=== PATIENT | male | born 1945 | race Caucasian/White ===

== ENCOUNTER → 2016-03-06 | Outpatient (CLI) | payer BC ==
[~2016-03-06] MED LIST: AMLO-114 PO; ASPCH81X PO; ATOR10TA88 PO; TRAM-10 PO
--- NOTE | 2016-03-06 09:55 | DIAGNOSTIC IMAGING REPORT ---
CAROTID ARTERY ULTRASOUND CLINICAL HISTORY: Arteriosclerosis of carotid artery. COMPARISON STUDY: None. TECHNIQUE: Real-time, grayscale, and color Doppler sonography of the carotid and vertebral arteries was performed. Images were viewed in the transverse and longitudinal planes. FINDINGS: There is mild to moderate atherosclerotic plaque. Velocity measurements are listed below. COMMON CAROTID PEAK SYSTOLIC VELOCITY (CM/S): RIGHT 71 LEFT 78 ICA PEAK SYSTOLIC VELOCITY (CM/S): RIGHT 33 LEFT 59 The systolic ratios between the internal to common carotid arteries were normal. Antegrade flow is seen in the vertebral arteries. The external carotid arteries are patent. Blood pressure in the right arm measured 159/102. Blood pressure in the left arm measured 170/103. IMPRESSION: 1. No evidence of a hemodynamically significant stenosis. 2. Mild to moderate atherosclerotic plaque within the bilateral common carotid and internal carotid arteries. 3. Elevated blood pressure, as above. Electronically signed by: Eugene Hillman M.D. 03/06/2016 9:53 AM Dictated Date/Time: 03/06/2016 9:51 AM
== END | disposition home or self-care (01) ==
LOC: C.ULTRBC 09:11
PROVIDERS: ATTEND Family Medicine
DX: I65.23 Occlusion and stenosis of bilateral carotid arteries (principal); R03.0 Elevated blood-pressure reading, without diagnosis of hypertension

== ENCOUNTER → 2016-03-13 | Outpatient (CLI) | payer BC ==
[~2016-03-13] MED LIST changes: +OPTIRAY 320 IV PRN
--- NOTE | 2016-03-13 11:01 | DIAGNOSTIC IMAGING REPORT ---
CT angiography abdomen ANGIO ABDOMEN WITH CONTRAST CLINICAL HISTORY: Aneurysm TECHNIQUE: Transaxial acquisition with multi axial reformatted images COMPARISON STUDY: None FINDINGS: Significant atherosclerotic change and tortuosity of the abdominal aorta. 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 Maximum transaxial dimension is 1.2 cm. Superior mesenteric artery shows minimal atherosclerotic change. Minimal atherosclerotic change origin of the renal arteries bilaterally with no significant stenotic process. 3.4 cm cyst superior aspect right hepatic lobe. Mild fatty infiltration of the remainder the liver. Mild cortical scarring of the kidneys bilaterally. Pancreas is unremarkable throughout. Visualized bowel pattern is nonobstructive. Mild atherosclerotic change and ectasia of the proximal iliac arterial vasculature. IMPRESSION: 1. 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 2. Maximum diameter is 12 mm with a maximum linear dimension of 3.1 cm 3. No additional focus of aneurysmal distention. 4. Small upper right hepatic lobe cyst. Electronically signed by: Boy Jacobsen M.D. 03/13/2016 10:59 AM Dictated Date/Time: 03/13/2016 10:53 AM
== END | disposition home or self-care (01) ==
LOC: C.CTS 10:03
PROVIDERS: ATTEND Family Medicine
DX: I72.8 Aneurysm of other specified arteries (principal); K76.89 Other specified diseases of liver

== ENCOUNTER → 2016-06-29 | Day surgery (SDC) | payer BC ==
[2016-06-22 08:03] VITALS: Ht 172.7 cm; Wt 83.6 kg
[~2016-06-29] VITALS: Ht 172.7 cm; Wt 83.6 kg
[~2016-06-29] MED LIST changes: +ATOR10TA82 PO; -ATOR10TA88 PO; +LIDOCAINE HCL 2% 2 ML VIAL (20MG/ML) ONE; +MIDAZOLAM HCL 1 MG/ML 2ML VIAL ONE; +ONDANSETRON INJ 2 MG/ML 2 ML VIAL ONE; -OPTIRAY 320 IV PRN; +PROPOFOL IV EMULSION 10 MG/ML 20 ML VIAL IV ONE; +SODIUM CHLORIDE 0.9% 500ML 500 ML IV ONE
--- NOTE | 2016-06-29 13:52 | Endo History and Physical ---
History & Physical Date of Service: June 29, 2016. Chief Complaint: History of colon polyps Referring Physician: Robinson Collins History of Present Illness 71 yo CM who presents for colonoscopy secondary to history of colon polyps. Past Surgical History Hx Cardiac Surgery: No Hx Internal Defibrillator: No Hx Pacemaker: No Hx Abdominal Surgery: Yes (INGUINAL HERNIA) Hx of Implantable Prosthesis: No Hx Post-Op Nausea and Vomiting: No Hx Cancer Surgery: No Hx Thoracic Surgery: No Hx Orthopedic: No Hx Urinary Tract Surgery: No Family History None Social History Smoking Status: Never Smoker Hx Substance Use: No Hx Alcohol Use: No Allergies Coded Allergies: NO KNOWN DRUG ALLERGIES (Verified Allergy, Unknown, ., 06/22/16) Current Medications Reported Home Medications Medications Dose Route/Sig Max Daily Dose Days Date Category Aspirin Chewable (Aspirin) 81 Mg Chew 81 Mg PO QAM 06/22/16 Reported Norvasc (Amlodipine Besylate) 10 Mg Tab 10 Mg PO QAM 06/22/16 Reported Lipitor (Atorvastatin Calcium) 10 Mg Tab 10 Mg PO DAILY AT LUNCH 06/22/16 Reported Vital Signs Weight (Kilograms): 83.64 Height (Feet): 5 Height (Inches): 8 Physical Exam General Appearance: WD/WN, no apparent distress Respiratory/Chest: Auscultation: breath sounds normal Cardiovascular: Heart Auscultation: RRR Abdomen: Bowel Sounds: normal Inspection & Palpation: soft, non-distended, no tenderness, guarding & rebound Assessment and Plan Assessment: 71 yo CM who presents for colonoscopy secondary to history of colon polyps. Plan: Proceed with colonoscopy.
--- NOTE | 2016-06-29 15:51 | GI REPORT ---
Procedure Date: 06/29/2016 2:45 PM Procedure: Colonoscopy Indications: High risk colon cancer surveillance: Personal history of colonic polyps Medicines: Monitored Anesthesia Care Complications: No immediate complications. Estimated Blood Loss: Estimated blood loss: none. Procedure: Pre-Anesthesia Assessment: - Prior to the procedure, a History and Physical was performed, and patient medications and allergies were reviewed. The patient's tolerance of previous anesthesia was also reviewed. The risks and benefits of the procedure and the sedation options and risks were discussed with the patient. All questions were answered, and informed consent was obtained. Prior Anticoagulants: The patient has taken aspirin, last dose was 2 days prior to procedure. ASA Grade Assessment: II - A patient with mild systemic disease. After reviewing the risks and benefits, the patient was deemed in satisfactory condition to undergo the procedure. After I obtained informed consent, the scope was passed under direct vision. Throughout the procedure, the patient's blood pressure, pulse, and oxygen saturations were monitored continuously. The Scope was introduced through the anus and advanced to the cecum, identified by appendiceal orifice and ileocecal valve. The colonoscopy was performed without difficulty. The patient tolerated the procedure well. The quality of the bowel preparation was good. The ileocecal valve, appendiceal orifice, and rectum were photographed. Findings: A 8 mm polyp was found in the ascending colon. The polyp was sessile. The polyp was removed with a hot snare. Resection and retrieval were complete. To prevent bleeding after the polypectomy, two hemostatic clips were successfully placed (MR conditional). There was no bleeding at the end of the procedure. Multiple small-mouthed diverticula were found in the sigmoid colon. Non-bleeding internal hemorrhoids were found during retroflexion. The hemorrhoids were small. Impression: - One 8 mm polyp in the ascending colon, removed with a hot snare. Resected and retrieved. Clips (MR conditional) were placed. - Diverticulosis in the sigmoid colon. - Non-bleeding internal hemorrhoids. Recommendation: - Resume previous diet. - Continue present medications. - Repeat colonoscopy for surveillance based on pathology results. - Return to primary care physician as previously scheduled. Nito Chavira DO 06/29/2016 3:50:16 PM This report has been signed electronically. Note Initiated On: 06/29/2016 2:45 PM I attest to the content of the Intraoperative Record and orders documented therein, exceptions below
[2016-06-29 16:08] VITALS: BP 138/89; PULSE 77; O2SAT 96
--- NOTE | 2016-06-29 16:18 | Discharge Instructions ---
Endoscopy Patient Instructions Date / Procedure(s) Performed June 29, 2016. Colonoscopy Allergy Information Coded Allergies: NO KNOWN DRUG ALLERGIES (Verified Allergy, Unknown, ., 06/22/16) Discharge Date / Findings June 29, 2016. Colon polyp Diverticulosis Internal hemorrhoids Medication Instructions Stopped Medication(s): last dose ASA Sunday OK to resume all medications today as prescribed Reported Home Medications Medications Dose Route/Sig Max Daily Dose Days Date Category Aspirin Chewable (Aspirin) 81 Mg Chew 81 Mg PO QAM 06/22/16 Reported Norvasc (Amlodipine Besylate) 10 Mg Tab 10 Mg PO QAM 06/22/16 Reported Lipitor (Atorvastatin Calcium) 10 Mg Tab 10 Mg PO DAILY AT LUNCH 06/22/16 Reported Provider Instructions Activity Restrictions - No exercising or heavy lifting for 24 hours. - Do not drink alcohol the day of the procedure. - Do not drive a car or operate machinery until the day after the procedure. - Do not make any important decisions or sign important papers in 24 hours after the procedure. Following Day: - Return to full activity which may include returning to work/school. Diet Start your diet with liquids and light foods (jello, soup, juice, toast). Then eat your usual diet if not nauseated. Treatment For Common After Affects For mild abdominal pain, bloating, or excessive gas: - Rest - Eat lightly - Lie on right side Follow-Up Information Follow-up with Dr. Robinson Collins as scheduled Anesthesia Information What You Should Know You have had a procedure that required some medicine to reduce anxiety and discomfort. This treatment is called moderate sedation. After receiving the treatment, you may be sleepy, but you will be able to breathe on your own. The effects of the treatment may last for several hours. Follow these instructions along with Activity/Diet recommendations noted above: * Do NOT do anything where dizziness or clumsiness would be dangerous. * Rest quietly at home today, then you can be up and about tomorrow. * Have a responsible person stay with you the rest of today. * You may have had an I.V. today. If so, you may take the dressing off later today. Recommendations Call your doctor if: * Trouble breathing * Continuous vomiting for more than 24 hours * Temperature above 101 degrees * Severe abdominal pain or bloating * Pain not relieved by pain medicine ordered * There is increased drainage or redness from any incision * A large amount of rectal bleeding greater than 2-3 tablespoons. (If you had a polyp/s removed or have hemorrhoids, a small amount of blood - from the rectum is to be expected.) * You have any unanswered questions or concerns. IN THE EVENT OF A SERIOUS EMERGENCY, GO TO THE NEAREST EMERGENCY ROOM Your discharge instructions were prepared by provider Nito Chavira. Patient Instructions Signature Page Dinesh Amin Patient (or Guardian) Signature/Date: I have read and understand the instructions given to me by my caregivers. Caregiver/RN/Doctor Signature/Date: The above-named patient and/or guardian has received patient instructions on this date. + Original Patient Signature Page (only) stays with chart. Please make copy for patient.
--- NOTE | 2016-06-29 16:54 | Anesthesiology Progress Note ---
Anesthesia Post Op Note Date & Time June 29, 2016 at 16:54 Vital Signs Pain Intensity: 0 Vital Signs Past 12 Hours Date Time Temp Pulse Resp B/P Pulse Ox O2 Delivery O2 Flow Rate FiO2 06/29/16 16:08 77 16 138/89 96 Room Air 06/29/16 15:53 82 16 122/71 95 Room Air 06/29/16 15:38 85 16 116/69 96 Room Air 06/29/16 14:06 36.9 96 20 159/94 97 Room Air Notes Mental Status: alert / awake / arousable, participated in evaluation Pt Amnestic to Procedure: Yes Nausea / Vomiting: adequately controlled Pain: adequately controlled Airway Patency, RR, SpO2: stable & adequate BP & HR: stable & adequate Hydration State: stable & adequate Anesthetic Complications: no major complications apparent
== END | disposition home or self-care (01) ==
LOC: C.GI 13:00
PROVIDERS: ATTEND Internal Medicine
DX: Z12.11 Encounter for screening for malignant neoplasm of colon (principal); D12.2 Benign neoplasm of ascending colon; K57.30 Diverticulosis of large intestine without perforation or abscess without bleeding; K64.8 Other hemorrhoids; Z86.010 Personal history of colon polyps; Z79.82 Long term (current) use of aspirin; Z79.899 Other long term (current) drug therapy

== ENCOUNTER → 2016-08-19 | Outpatient (CLI) | payer OTHER ==
[~2016-08-19] MED LIST changes: -ATOR10TA82 PO; +ATOR10TA88 PO; -LIDOCAINE HCL 2% 2 ML VIAL (20MG/ML) ONE; -MIDAZOLAM HCL 1 MG/ML 2ML VIAL ONE; -ONDANSETRON INJ 2 MG/ML 2 ML VIAL ONE; -PROPOFOL IV EMULSION 10 MG/ML 20 ML VIAL IV ONE; -SODIUM CHLORIDE 0.9% 500ML 500 ML IV ONE
== END | disposition home or self-care (01) ==
LOC: C.LAB 21:45
DX: Z02.83 Encounter for blood-alcohol and blood-drug test (principal)

== ENCOUNTER → 2016-08-22 | Day surgery (SDC) | payer BC ==
[2016-08-16 07:52] VITALS: Ht 170.2 cm; Wt 81.8 kg
[2016-08-18 09:31] LABS: BASO % 0.4 %; BASO ABS # 0.02 K/uL (0-0.2); COMPLETE YES; EOS % 1.8 %; HEMATOCRIT 40.6 % (42-52); IG% 0.4 %; LYMPH % 34.5 %; LYMPH ABS # 1.97 K/uL (1.2-3.4); MEAN CELL VOLUME 97.1 fL (80-100); MEAN CORPUSCULAR HEMOGLOBIN 33.3 pg (25-34); MEAN CORPUSCULAR HGB CONC 34.2 g/dl (32-36); MEAN PLATELET VOLUME 8.4 fL (7.4-10.4); MONO % 7.4 %; NEUT % 55.5 %; PLATELET COUNT 300 K/uL (130-400); RED BLOOD COUNT 4.18 M/uL (4.7-6.1); WHITE BLOOD COUNT 5.71 K/uL (4.8-10.8)
[2016-08-18 10:05] LABS: BUN/CREATININE RATIO 18.4 (10-20); CALCIUM 9.2 mg/dl (8.5-10.1); CREATININE 1.1 mg/dl (0.60-1.40); POTASSIUM 3.6 mmol/L (3.5-5.1)
[~2016-08-22] VITALS: Ht 170.2 cm; Wt 81.8 kg
[~2016-08-22] MED LIST changes: +ATROPINE SULFATE 0.1 MG/ML 5ML SYR IV PRN; +BUPIVACAINE 0.5 % 5 MG/1 ML MPF 30ML VIAL ONE; +CEFAZOLIN 2000 MG/60 ML D5W IV SCH; +EpHEDrine SULFATE INJ 50 MG/ML AMP IV PRN; +FENTANYL CITRATE INJ 50 MCG/1 ML 2 ML VIAL IV PRN; +FENTANYL CITRATE INJ 50 MCG/1 ML 2 ML VIAL ONE; +FLUMAZENIL 0.1 MG/1 ML 10 ML VIAL IV PRN; +HYDROmorphone INJ 2 MG/ML SYR/VIAL IV PRN; +LABETALOL HCL IV 5 MG/ML 20ML IV PRN; +LACTATED RINGER'S 1000ML 1,000 ML IV SCH; +LACTATED RINGER'S 1000ML 500 ML IV SCH; +LIDOCAINE HCL 1% 20 ML VIAL ONE; +LIDOCAINE HCL 2% 2 ML VIAL (20MG/ML) ONE; +MEPERIDINE HCL 25 MG/ML CARP IV PRN; +MIDAZOLAM HCL 1 MG/ML 2ML VIAL ONE; +NALOXONE HCL 0.4 MG/1 ML VIAL/CARP IV PRN; +ONDANSETRON INJ 2 MG/ML 2 ML VIAL IV PRN; +PHENYLEPHRINE 100MCG/ML 5ML SYR IV PRN; +PROPOFOL IV EMULSION 10 MG/ML 20 ML VIAL IV ONE; +SODIUM CHLORIDE 0.9% 1000ML 1,000 ML IV SCH; +TRAMADOL HCL 50 MG TAB PO PRN
--- NOTE | 2016-08-22 06:46 | History & Physical Bridge - [place] ---
H&P Re-Evaluation Bridge Note: I have examined the patient, reviewed the History & Physical and in the interval since the performance of the History & Physical I have noted the following changes of clinical significance: No changes noted
--- NOTE | 2016-08-22 07:15 | [facility] Post Operative Brief Note ---
Immediate Operative Summary Operative Date Aug 22, 2016. Pre-Operative Diagnosis Right carpal tunnel syndrome Post-Operative Diagnosis Same as preop Procedure(s) Performed Right Carpal Tunnel Release Surgeon Dr. Hargrove Telecasting Engineer Surgeon(s) Toan Domínguez PA-C Estimated Blood Loss Minimal Findings ABOVE Specimens None Anesthesia LOCAL IV SEDATION Complication(s) None Disposition
[2016-08-22 07:16] VITALS: TEMP 36.8
--- NOTE | 2016-08-22 07:16 | Discharge Instructions-SurgCtr ---
Discharge Instructions Date of Service Aug 22, 2016. Visit Reason for Visit: Right Carpal Tunnel Syndrome Discharge Discharge Diagnosis / Problem: SAME ABOVE Discharge Goals Goal(s): Decrease discomfort, Improve function Activity Recommendations Activity Limitations: as noted below Lifting Limitations: until after follow-up appointment Anesthesia . Post Anesthesia Instructions: If you have had General Anesthesia or IV Sedation: * Do not drive today. * Resume driving when surgeon permits. * Do not make important decisions or sign legal documents today. * Call surgeon for: 1. Temperature elevations greater than 101 degrees F. 2. Uncontrollable pain. 3. Excessive bleeding. 4. Persistent nausea and vomiting. 5. Medication intolerance (nausea, vomiting or rash). * For nausea and vomiting use only clear liquids such as: tea, soda, bouillon until nausea subsides, then gradually increase diet as tolerated. * If you have any concerns or questions, call your surgeon's office. If physician is unavailable and it is an emergency, call 911 or go to the nearest emergency room. . Instructions / Follow-Up Instructions / Follow-Up MEDICATIONS: * Resume previous medications unless instructed otherwise by your surgeon. * Always take pain medication on a full stomach or with food to avoid upset stomach. * Do not drink alcohol or drive while taking narcotics. * Ibuprofen or Tylenol may be taken if narcotic not needed. SPECIAL CARE INSTRUCTIONS: __ None _X_ Keep extremity elevated and iced x 48 hours; apply ice 20-30 minutes 8-10 times/day. May remove at night. __ Sling __24 hrs/day __ Remove at night __ Shoulder Immobilizer __ 24 hrs/day __ Remove at night _X_ Dressing _X_ Maintain until seen in office, may shower with plastic over site __ Remove dressings in 24-48 hours and then may shower __ Cover incisions with band-aids after showering __ Do not remove steri-strips Call physician if chills or temperature rises above 102 degrees or pain unrelieved by prescribed pain medications at . . Diet Recommendations Home Diet: no limitations Fluid Restriction: None Procedures Procedures Performed: Right Carpal Tunnel Release Pending Studies Studies pending at discharge: no Work Instructions Return To Work: after follow-up Lifting Limitations: no more than 10 pounds Medical Emergencies . Who to Call and When: Medical Emergencies: If at any time you feel your situation is an emergency, please call 911 immediately. . Non-Emergent Contact Non-Emergency issues call your: Primary Care Provider Call Non-Emergent contact if: you have a fever, temperature is above 101.5 . . "Provider Documentation" section prepared by Toan Domínguez. .
--- NOTE | 2016-08-22 07:35 | Anesthesia Progress Nt - [facility] ---
Anesthesia Post Op Note Date & Time Aug 22, 2016 at 07:35 Vital Signs Pain Intensity: 0 Vital Signs Past 12 Hours Date Time Temp Pulse Resp B/P (MAP) Pulse Ox O2 Delivery O2 Flow Rate FiO2 08/22/16 07:16 36.8 76 16 154/96 (115) 96 Room Air 08/22/16 06:22 36.7 98 16 145/100 (115) 96 Room Air Notes Mental Status: alert / awake / arousable, participated in evaluation Pt Amnestic to Procedure: Yes Nausea / Vomiting: adequately controlled Pain: adequately controlled Airway Patency, RR, SpO2: stable & adequate BP & HR: stable & adequate Hydration State: stable & adequate Anesthetic Complications: no major complications apparent
[2016-08-22 07:42] VITALS: BP 154/99; PULSE 80; O2SAT 96
== END | disposition home or self-care (01) ==
LOC: X.SURG 06:09
PROVIDERS: ATTEND Orthopaedic Surgery
DX: G56.01 Carpal tunnel syndrome, right upper limb (principal); I10 Essential (primary) hypertension; Z79.82 Long term (current) use of aspirin; Z82.49 Family history of ischemic heart disease and other diseases of the circulatory system

== ENCOUNTER → 2017-06-08 | Outpatient (CLI) | payer BC ==
[~2017-06-08] MED LIST changes: +ATOR10TA82 PO; -ATOR10TA88 PO; -ATROPINE SULFATE 0.1 MG/ML 5ML SYR IV PRN; -BUPIVACAINE 0.5 % 5 MG/1 ML MPF 30ML VIAL ONE; -CEFAZOLIN 2000 MG/60 ML D5W IV SCH; -EpHEDrine SULFATE INJ 50 MG/ML AMP IV PRN; -FENTANYL CITRATE INJ 50 MCG/1 ML 2 ML VIAL IV PRN; -FENTANYL CITRATE INJ 50 MCG/1 ML 2 ML VIAL ONE; -FLUMAZENIL 0.1 MG/1 ML 10 ML VIAL IV PRN; -HYDROmorphone INJ 2 MG/ML SYR/VIAL IV PRN; -LABETALOL HCL IV 5 MG/ML 20ML IV PRN; -LACTATED RINGER'S 1000ML 1,000 ML IV SCH; -LACTATED RINGER'S 1000ML 500 ML IV SCH; -LIDOCAINE HCL 1% 20 ML VIAL ONE; -LIDOCAINE HCL 2% 2 ML VIAL (20MG/ML) ONE; -MEPERIDINE HCL 25 MG/ML CARP IV PRN; -MIDAZOLAM HCL 1 MG/ML 2ML VIAL ONE; -NALOXONE HCL 0.4 MG/1 ML VIAL/CARP IV PRN; -ONDANSETRON INJ 2 MG/ML 2 ML VIAL IV PRN; -PHENYLEPHRINE 100MCG/ML 5ML SYR IV PRN; -PROPOFOL IV EMULSION 10 MG/ML 20 ML VIAL IV ONE; -SODIUM CHLORIDE 0.9% 1000ML 1,000 ML IV SCH; -TRAM-10 PO; -TRAMADOL HCL 50 MG TAB PO PRN
[2017-06-08 14:59] LABS: ALBUMIN 4.5 gm/dl (3.4-5.0); ALT/SGPT 37 U/L (12-78); AST/SGOT 36 U/L (15-37); BLOOD UREA NITROGEN 12 mg/dl (7-18); CALCIUM 9.9 mg/dl (8.5-10.1); CARBON DIOXIDE 28 mmol/L (21-32); CHOLESTEROL 156 mg/dl (0-200); CREATININE 1.35 mg/dl (0.60-1.40); GLUCOSE 76 mg/dl (70-99); POTASSIUM 3.7 mmol/L (3.5-5.1); SODIUM 137 mmol/L (136-145)
[2017-06-08 15:04] LABS: ALKALINE PHOSPHATASE 64 U/L (45-117); TOTAL PROTEIN 8.8 gm/dl (6.4-8.2)
[2017-06-08 15:10] LABS: LDL CHOLESTEROL CALCULATED 63 mg/dl
== END | disposition home or self-care (01) ==
LOC: C.LABBC 10:19
PROVIDERS: ATTEND Nurse Practitioner Adult Health
DX: Z12.5 Encounter for screening for malignant neoplasm of prostate (principal); I10 Essential (primary) hypertension; E78.5 Hyperlipidemia, unspecified; F10.20 Alcohol dependence, uncomplicated

== ENCOUNTER 2021-05-26 21:37 | Inpatient (IN) ==
[2021-05-26] MEDS ORDERED: SODIUM CHLORIDE 0.9% 500 ML IV SCH (22:15)
[2021-05-26] MEDS ORDERED: MULTI-VITAMIN INFUSION 10 ML, THIAMINE HCL 100 MG, FOLIC ACID 1 MG in SODIUM CHLORIDE 0... IV ONE (22:23)
[2021-05-26 22:32] LABS: Basophils # (auto) 0.02 K/uL (0-0.2); Basophils % (auto) 0.2 %; Eosinophils # (auto) 0.01 K/uL (0-0.5); Eosinophils % (auto) 0.1 %; Hematocrit (blood only) 43.1 % (42-52); Hemoglobin 15.6 g/dL (14.0-18.0); Immature Granulocytes # (auto) 0.04 K/uL (0.00-0.02); Immature Granulocytes % (auto) 0.5 %; Lymphocytes # (auto) 1.04 K/uL (1.2-3.4); Lymphocytes % (auto) 12.7 %; Mean Corpuscular Hemoglobin 38.4 pg (25-34); Mean Corpuscular Hgb Conc 36.2 g/dL (32-36); Mean Corpuscular Volume 106.2 fL (80-100); Monocytes # (auto) 0.54 K/uL (0.11-0.59); Monocytes % (auto) 6.6 %; Neutrophils # (auto) 6.53 K/uL (1.4-6.5); Neutrophils % (auto) 79.9 %; Nucleated RBC # (auto) 0.18 K/uL (0-0); Nucleated RBC % (auto) 2.2 %; Platelet Count 263 K/uL (130-400); RDW Standard Deviation 54.5 fL (36.4-46.3); Red Blood Count 4.06 M/uL (4.7-6.1); White Blood Count 8.18 K/uL (4.8-10.8)
[2021-05-26] MEDS ORDERED: POTASSIUM CHLORIDE 20 MEQ/15 ML UDC PO STA (22:34)
[2021-05-26 22:45] LABS: Albumin Globulin Ratio 1.1 (0.9-2); Albumin Level 4.3 gm/dl (3.4-5.0); BUN Creatinine Ratio 16.3 (10-20); Bilirubin,Total 1.6 mg/dl (0.2-1.0); Calcium 11.3 mg/dl (8.5-10.1); Creatinine Clr Calc Pharmacy 34.2 ml/min; Est GFR (African American) 43.2 ml/min; Est GFR (Non-African American) 37.3 ml/min; Magnesium 2.1 mg/dl (1.7-2.4); Potassium 2.3 mmol/L (3.5-5.1); Total Protein 8.3 gm/dl (6.0-8.3)
[2021-05-26 22:46] LABS: iSTAT Creatinine 1.4 mg/dl (0.6-1.3); iSTAT Hemoglobin 15.3 g/dl (14.0-18.0); iSTAT Ionized Calcium 1.25 mmol/l (1.12-1.32); iSTAT Potassium 2.6 mmol/L (3.3-5.0)
[2021-05-26 22:51] LABS: Troponin I High Sensitivity 29.7 pg/ml (0-20)
[2021-05-26 23:14] LABS: RBC Morphology Unremarkable
--- NOTE | 2021-05-26 23:41 | Emergency Department Note ---
History of Present Illness General Chief complaint: Confusion Time Seen by Provider: 05/26/21 21:52 History of Present Illness This 76-year-old alcoholic presents to the ER complaining of possible confusion who was found outside and states has been drinking tequila today Location: Generalized Quality: Weak Severity: Moderate Duration: Ongoing Timing: Ongoing Context: Patient was brought in as he appeared confused outside Modifying factors: better with nothing; worse with nothing patient states he drinks daily. He does not want to go to rehab. Patient denies chest pain, dyspnea, abdominal pain, fever, chills, flulike illness. Patient states he is not sure why he is here. Home Medications Medication Instructions Recorded Confirmed Type aspirin 81 mg tablet,delayed 81 mg PO DAILY tab 11/19/18 05/26/21 History release amlodipine 10 mg tablet 10 mg PO DAILY #90 tab 12/07/20 05/26/21 Rx atorvastatin 10 mg tablet 10 mg PO DAILY #90 tab 12/07/20 05/26/21 Rx Allergies Allergy/AdvReac Type Severity Reaction Status Date / Time No Known Drug Allergies Allergy Unknown . Verified 05/26/21 22:46 Past Med/Surg History Medical History Alcoholism Anemia Arteriosclerosis of carotid artery Celiac artery aneurysm Diverticulosis Dyslipidemia Erectile dysfunction Hypertension Internal hemorrhoids Tubular adenoma of colon Surgical History H/O hernia repair abdominal hernia repair with mesh (2002); hospital in [facility] H/O tooth extraction Family History Mother Dementia age 100 Father Stroke age 88 Grandfather (Maternal) Heart disease Social History Smoking Status: Former smoker Tobacco Type: Cigarettes Second Hand Exposure: No; Hx Alcohol Use: No Hx Substance Use: No Preferred Language: Arabic Visual Impairment: No Limitations Hearing Ability: Normal 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 marital status: current occupational status: retired current occupation: does consulting work on the side Feels Safe at Home: Yes Childhood Exposure to Second-Hand Smoke: No caffeine: Yes Dental Care, Regularly: Yes Physical Activity Frequency: 5-6 Times per Week Seatbelt Use: always Sunscreen Use: Yes Review of Systems A total of 10 systems reviewed and were otherwise negative Physical Exam Vital Signs Vital Signs - 24 hr 05/26/21 21:47 05/26/21 22:02 05/26/21 22:20 Temperature 37 C Temperature Source Rectal Pulse Rate 98 H Pulse Rate [Finger] Pulse Rhythm [Finger] Pulse Strength [Finger] Respiratory Rate 18 Respiratory Effort / Characteristics Non-Labored Respiratory Depth Normal Blood Pressure 108/79 Blood Pressure [Right Arm] Blood Pressure Mean 88 Blood Pressure Mean [Right Arm] Blood Pressure Position Sitting Blood Pressure Position [Right Arm] Pulse Oximetry 99 97 Oxygen Delivery Method Room Air Room Air Room Air Sepsis Recent Fever Within 48 Hours No Sepsis New/Unexplained Change in Mental Status No Sepsis Action Taken by Nursing No Action Required 05/27/21 00:00 05/27/21 00:52 Temperature Temperature Source Pulse Rate Pulse Rate [Finger] 94 H 93 H Pulse Rhythm [Finger] Regular Regular Pulse Strength [Finger] Normal Normal Respiratory Rate 17 20 Respiratory Effort / Characteristics Non-Labored Non-Labored Respiratory Depth Normal Normal Blood Pressure Blood Pressure [Right Arm] 138/89 112/97 Blood Pressure Mean Blood Pressure Mean [Right Arm] 105 102 Blood Pressure Position Blood Pressure Position [Right Arm] Sitting Sitting Pulse Oximetry 94 99 Oxygen Delivery Method Room Air Room Air Sepsis Recent Fever Within 48 Hours Sepsis New/Unexplained Change in Mental Status Sepsis Action Taken by Nursing VITALS: Vitals are noted on the nurse's note and reviewed by myself. Vital signs stable. GENERAL: Pleasant elderly male mildly confused appearing following commands but slow to answer, in no acute distress, nondiaphoretic, well-developed well-nourished. SKIN: Dried blood on the lips, the rest of the skin was without rashes, erythema, edema, or bruising. There is no tenting of the skin. Capillary reflex less than 2 seconds. HEAD: Normocephalic atraumatic. EARS: External auditory canals clear, EYES: Pupils equal round and reactive to light and accommodation. Conjunctivae without injection, sclerae without icterus. Extraocular movements intact. NOSE: Patent, turbinates without inflammation or discharge. MOUTH: Mucous membranes moist. Pharynx without erythema or exudate. Uvula midline. Airway patent. Tongue does not deviate. NECK: Supple without nuchal rigidity. No lymphadenopathy. No thyromegaly. Cervical spine is nontender. No JVD. HEART: Regular rate and rhythm LUNGS: Clear to auscultation bilaterally without wheezes, rales or rhonchi. No retractions or accessory muscle use. ABDOMEN: Positive bowel sounds x 4. Normal tympanic percussion. Soft, nontender, without masses or organomegaly. Cordero sign negative. No guarding or rebound tenderness. No CVA tenderness MUSCULOSKELETAL: No muscle atrophy, erythema, or edema noted. NEURO: Patient was alert and oriented to person place and time. Normal sensati on to light and sharp touch. No focal neurological deficits. Course Administered Medications Potassium Chloride/Sodium Chloride (Normal Saline W/20 Meq Kcl) 20 meq in 1,000 mls @ 100 mls/hr IV .Q10H ARTURO Stop: 06/26/21 04:59 Last Admin: 05/27/21 05:14 Dose: 100 mls/hr Documented by: [id number] Discontinued Medications Sodium Chloride (Nss) 500 mls @ 999 mls/hr IV .Q31M ARTURO Stop: 05/26/21 22:45 Last Infusion: 05/26/21 23:52 Dose: 0 mls/hr Documented by: [id number] Admin: 05/26/21 22:23 Dose: 999 mls/hr Documented by: [id number] Multivitamins 10 ml/ Thiamine HCl 100 mg/ Folic Acid 1 mg/Sodium Chloride 1,011.2 mls @ 1,011.2 mls/hr IV .Q1H ONE Stop: 05/26/21 23:22 Last Infusion: 05/27/21 00:59 Dose: 0 mls/hr Documented by: [id number] Admin: 05/26/21 23:52 Dose: 1,011.2 mls/hr Documented by: [id number] Potassium Chloride (K Jimmy / Wtr) 10 meq in 100 mls @ 100 mls/hr IV Q1H ARTURO; Protocol Stop: 05/27/21 00:44 Last Infusion: 05/27/21 02:07 Dose: 0 mls/hr Documented by: [id number] Admin: 05/27/21 00:51 Dose: 100 mls/hr Documented by: [id number] Infusion: 05/27/21 00:50 Dose: 0 mls/hr Documented by: [id number] Admin: 04/14/22 23:57 Dose: 100 mls/hr Documented by: [id number] Magnesium Sulfate/Dextrose (Magnesium Sulfate / D5w) 1 gm in 100 mls @ 100 mls/hr IV Q1H ARTURO Stop: 05/27/21 00:34 Last Infusion: 05/27/21 03:09 Dose: 0 mls/hr Documented by: [id number] Admin: 05/27/21 02:05 Dose: 100 mls/hr Documented by: [id number] Infusion: 05/27/21 02:05 Dose: 0 mls/hr Documented by: [id number] Admin: 05/27/21 00:57 Dose: 100 mls/hr Documented by: [id number] Ioversol (Optiray 320 125ml) 125 ml IV ONCE ONE Stop: 05/26/21 23:47 Last Admin: 05/26/21 23:46 Dose: 118 ml Documented by: [id number] Potassium Chloride (Potassium Chloride 20 Meq/15 Ml Udc) 40 meq PO NOW STA Stop: 05/26/21 22:35 Last Admin: 05/26/21 23:55 Dose: 40 meq Documented by: [id number] Medical Decision Making Medical Records Attestation: I reviewed the patient's medical records. Home Medications Current Medication List: was personally reviewed by me Laboratory Data Attestation: I reviewed the patient's lab results. Result diagrams: 05/26/21 21:53 05/26/21 21:53 Lab Results 05/26/21 05/26/21 05/26/21 Range/Units 21:53 21:53 21:53 WBC 8.18 (4.8-10.8) K/uL RBC 4.06 L (4.7-6.1) M/uL Hgb 15.6 (14.0-18.0) g/dL POC Hgb (14.0-18.0) g/dl Hct 43.1 (42-52) % POC Hct (42-52) % MCV 106.2 H (80-100) fL MCH 38.4 H (25-34) pg MCHC 36.2 H (32-36) g/dL RDW Std Deviation 54.5 H (36.4-46.3) fL RDW Coeff of Juan 14.0 (11.5-14.5) % Plt Count 263 (130-400) K/uL MPV 10.0 (7.4-10.4) fL Immature Gran % (Auto) 0.5 % Neut % (Auto) 79.9 % Lymph % (Auto) 12.7 % Harrison % (Auto) 6.6 % Eos % (Auto) 0.1 % Baso % (Auto) 0.2 % Neut # (Auto) 6.53 H (1.4-6.5) K/uL Lymph # (Auto) 1.04 L (1.2-3.4) K/uL Harrison # (Auto) 0.54 (0.11-0.59) K/uL Eos # (Auto) 0.01 (0-0.5) K/uL Baso # (Auto) 0.02 (0-0.2) K/uL Immature Gran # (Auto) 0.04 H (0.00-0.02) K/uL Absolute Nucleated RBC 0.18 H (0-0) K/uL Nucleated RBC % (auto) 2.2 % RBC Morphology Unremarkable PT (9.0-12.0) Seconds INR (0.9-1.1) APTT (21.0-31.0) Seconds PTT Ratio POC pH (7.35-7.45) POC pCO2 (35-46) mmHg POC pO2 (80-95) mmHg POC HCO3 (19-24) misty/L POC Base Excess (-9-1.8) misty/L POC ABG O2 Sat (90-95) % POC Sodium (135-144) mmol/L Sodium 137 (136-145) mmol/L POC Potassium (3.3-5.0) mmol/L Potassium 2.3 L* (3.5-5.1) mmol/L POC Chloride (101-112) mmol/L Chloride 92 L (98-107) mmol/L Carbon Dioxide 22 (21-32) mmol/L POC Total CO2 (24-31) mmol/L Anion Gap 23 H (3-11) POC Anion Gap (16-25) mmol/L POC BUN (7-18) mg/dl BUN 28 H (6-23) mg/dl Creatinine 1.72 H (0.6-1.4) mg/dl POC Creatinine (0.6-1.3) mg/dl Est Cr Clr Drug Dosing 34.2 ml/min Est GFR ( Amer) 43.2 ml/min Est GFR (Non-Af Amer) 37.3 ml/min BUN/Creatinine Ratio 16.3 (10-20) Glucose 191 H (70-99(Fasting)) mg/dl POC Glucose (other) (70-99) mg/dl Osmolality (280-300) mOsm/kg Calcium 11.3 H (8.5-10.1) mg/dl POC Ioniz Calcium Naida (1.12-1.32) mmol/l Magnesium 2.1 (1.7-2.4) mg/dl Total Bilirubin 1.6 H (0.2-1.0) mg/dl AST 59 H (13-39) U/L ALT 53 H (7-52) U/L Alkaline Phosphatase 74 (34-104) U/L Ammonia (18-72) umol/L Total Creatine Kinase 44 (30-223) U/L Troponin I High Sens 29.7 H (0-20) pg/ml Total Protein 8.3 (6.0-8.3) gm/dl Albumin 4.3 (3.4-5.0) gm/dl Globulin 4.0 (2.5-4.0) gm/dl Albumin/Globulin Ratio 1.1 (0.9-2) Salicylates (3.0-30) mg/dl Acetaminophen (10-30) ug/ml Ethyl Alcohol mg/dL < 10.0 (<10.0) mg/dl SARS-CoV-2, RNA, NAAT (NEGATIVE) 05/26/21 05/26/21 05/26/21 Range/Units 21:53 21:53 22:32 WBC (4.8-10.8) K/uL RBC (4.7-6.1) M/uL Hgb (14.0-18.0) g/dL POC Hgb 15.3 (14.0-18.0) g/dl Hct (42-52) % POC Hct 45 (42-52) % MCV (80-100) fL MCH (25-34) pg MCHC (32-36) g/dL RDW Std Deviation (36.4-46.3) fL RDW Coeff of Juan (11.5-14.5) % Plt Count (130-400) K/uL MPV (7.4-10.4) fL Immature Gran % (Auto) % Neut % (Auto) % Lymph % (Auto) % Harrison % (Auto) % Eos % (Auto) % Baso % (Auto) % Neut # (Auto) (1.4-6.5) K/uL Lymph # (Auto) (1.2-3.4) K/uL Harrison # (Auto) (0.11-0.59) K/uL Eos # (Auto) (0-0.5) K/uL Baso # (Auto) (0-0.2) K/uL Immature Gran # (Auto) (0.00-0.02) K/uL Absolute Nucleated RBC (0-0) K/uL Nucleated RBC % (auto) % RBC Morphology PT 12.6 H (9.0-12.0) Seconds INR 1.2 H (0.9-1.1) APTT 23.0 (21.0-31.0) Seconds PTT Ratio 0.8 POC pH (7.35-7.45) POC pCO2 (35-46) mmHg POC pO2 (80-95) mmHg POC HCO3 (19-24) misty/L POC Base Excess (-9-1.8) misty/L POC ABG O2 Sat (90-95) % POC Sodium 139 (135-144) mmol/L Sodium (136-145) mmol/L POC Potassium 2.6 L (3.3-5.0) mmol/L Potassium (3.5-5.1) mmol/L POC Chloride 98 L (101-112) mmol/L Chloride (98-107) mmol/L Carbon Dioxide (21-32) mmol/L POC Total CO2 25 (24-31) mmol/L Anion Gap (3-11) POC Anion Gap 20.0 (16-25) mmol/L POC BUN 33 H (7-18) mg/dl BUN (6-23) mg/dl Creatinine (0.6-1.4) mg/dl POC Creatinine 1.4 H (0.6-1.3) mg/dl Est Cr Clr Drug Dosing ml/min Est GFR ( Amer) ml/min Est GFR (Non-Af Amer) ml/min BUN/Creatinine Ratio (10-20) Glucose (70-99(Fasting)) mg/dl POC Glucose (other) 174 H (70-99) mg/dl Osmolality 309 H (280-300) mOsm/kg Calcium (8.5-10.1) mg/dl POC Ioniz Calcium Naida 1.25 (1.12-1.32) mmol/l Magnesium (1.7-2.4) mg/dl Total Bilirubin (0.2-1.0) mg/dl AST (13-39) U/L ALT (7-52) U/L Alkaline Phosphatase (34-104) U/L Ammonia (18-72) umol/L Total Creatine Kinase (30-223) U/L Troponin I High Sens (0-20) pg/ml Total Protein (6.0-8.3) gm/dl Albumin (3.4-5.0) gm/dl Globulin (2.5-4.0) gm/dl Albumin/Globulin Ratio (0.9-2) Salicylates (3.0-30) mg/dl Acetaminophen (10-30) ug/ml Ethyl Alcohol mg/dL (<10.0) mg/dl SARS-CoV-2, RNA, NAAT (NEGATIVE) 05/26/21 05/26/21 05/26/21 Range/Units 23:05 23:13 23:49 WBC (4.8-10.8) K/uL RBC (4.7-6.1) M/uL Hgb (14.0-18.0) g/dL POC Hgb (14.0-18.0) g/dl Hct (42-52) % POC Hct (42-52) % MCV (80-100) fL MCH (25-34) pg MCHC (32-36) g/dL RDW Std Deviation (36.4-46.3) fL RDW Coeff of Juan (11.5-14.5) % Plt Count (130-400) K/uL MPV (7.4-10.4) fL Immature Gran % (Auto) % Neut % (Auto) % Lymph % (Auto) % Harrison % (Auto) % Eos % (Auto) % Baso % (Auto) % Neut # (Auto) (1.4-6.5) K/uL Lymph # (Auto) (1.2-3.4) K/uL Harrison # (Auto) (0.11-0.59) K/uL Eos # (Auto) (0-0.5) K/uL Baso # (Auto) (0-0.2) K/uL Immature Gran # (Auto) (0.00-0.02) K/uL Absolute Nucleated RBC (0-0) K/uL Nucleated RBC % (auto) % RBC Morphology PT (9.0-12.0) Seconds INR (0.9-1.1) APTT (21.0-31.0) Seconds PTT Ratio POC pH 7.49 H (7.35-7.45) POC pCO2 32 L (35-46) mmHg POC pO2 75 L (80-95) mmHg POC HCO3 24 (19-24) misty/L POC Base Excess 1.0 (-9-1.8) misty/L POC ABG O2 Sat 96.0 H (90-95) % POC Sodium (135-144) mmol/L Sodium (136-145) mmol/L POC Potassium (3.3-5.0) mmol/L Potassium (3.5-5.1) mmol/L POC Chloride (101-112) mmol/L Chloride (98-107) mmol/L Carbon Dioxide (21-32) mmol/L POC Total CO2 25 (24-31) mmol/L Anion Gap (3-11) POC Anion Gap (16-25) mmol/L POC BUN (7-18) mg/dl BUN (6-23) mg/dl Creatinine (0.6-1.4) mg/dl POC Creatinine (0.6-1.3) mg/dl Est Cr Clr Drug Dosing ml/min Est GFR ( Amer) ml/min Est GFR (Non-Af Amer) ml/min BUN/Creatinine Ratio (10-20) Glucose (70-99(Fasting)) mg/dl POC Glucose (other) (70-99) mg/dl Osmolality (280-300) mOsm/kg Calcium (8.5-10.1) mg/dl POC Ioniz Calcium Naida (1.12-1.32) mmol/l Magnesium (1.7-2.4) mg/dl Total Bilirubin (0.2-1.0) mg/dl AST (13-39) U/L ALT (7-52) U/L Alkaline Phosphatase (34-104) U/L Ammonia 18.0 (18-72) umol/L Total Creatine Kinase (30-223) U/L Troponin I High Sens (0-20) pg/ml Total Protein (6.0-8.3) gm/dl Albumin (3.4-5.0) gm/dl Globulin (2.5-4.0) gm/dl Albumin/Globulin Ratio (0.9-2) Salicylates < 3.0 L (3.0-30) mg/dl Acetaminophen < 3 L (10-30) ug/ml Ethyl Alcohol mg/dL (<10.0) mg/dl SARS-CoV-2, RNA, NAAT (NEGATIVE) 05/26/21 05/27/21 Range/Units 23:49 00:02 WBC (4.8-10.8) K/uL RBC (4.7-6.1) M/uL Hgb (14.0-18.0) g/dL POC Hgb (14.0-18.0) g/dl Hct (42-52) % POC Hct (42-52) % MCV (80-100) fL MCH (25-34) pg MCHC (32-36) g/dL RDW Std Deviation (36.4-46.3) fL RDW Coeff of Juan (11.5-14.5) % Plt Count (130-400) K/uL MPV (7.4-10.4) fL Immature Gran % (Auto) % Neut % (Auto) % Lymph % (Auto) % Harrison % (Auto) % Eos % (Auto) % Baso % (Auto) % Neut # (Auto) (1.4-6.5) K/uL Lymph # (Auto) (1.2-3.4) K/uL Harrison # (Auto) (0.11-0.59) K/uL Eos # (Auto) (0-0.5) K/uL Baso # (Auto) (0-0.2) K/uL Immature Gran # (Auto) (0.00-0.02) K/uL Absolute Nucleated RBC (0-0) K/uL Nucleated RBC % (auto) % RBC Morphology PT (9.0-12.0) Seconds INR (0.9-1.1) APTT (21.0-31.0) Seconds PTT Ratio POC pH (7.35-7.45) POC pCO2 (35-46) mmHg POC pO2 (80-95) mmHg POC HCO3 (19-24) misty/L POC Base Excess (-9-1.8) misty/L POC ABG O2 Sat (90-95) % POC Sodium (135-144) mmol/L Sodium (136-145) mmol/L POC Potassium (3.3-5.0) mmol/L Potassium (3.5-5.1) mmol/L POC Chloride (101-112) mmol/L Chloride (98-107) mmol/L Carbon Dioxide (21-32) mmol/L POC Total CO2 (24-31) mmol/L Anion Gap (3-11) POC Anion Gap (16-25) mmol/L POC BUN (7-18) mg/dl BUN (6-23) mg/dl Creatinine (0.6-1.4) mg/dl POC Creatinine (0.6-1.3) mg/dl Est Cr Clr Drug Dosing ml/min Est GFR ( Amer) ml/min Est GFR (Non-Af Amer) ml/min BUN/Creatinine Ratio (10-20) Glucose (70-99(Fasting)) mg/dl POC Glucose (other) (70-99) mg/dl Osmolality (280-300) mOsm/kg Calcium (8.5-10.1) mg/dl POC Ioniz Calcium Naida (1.12-1.32) mmol/l Magnesium (1.7-2.4) mg/dl Total Bilirubin (0.2-1.0) mg/dl AST (13-39) U/L ALT (7-52) U/L Alkaline Phosphatase (34-104) U/L Ammonia (18-72) umol/L Total Creatine Kinase (30-223) U/L Troponin I High Sens 25.3 H (0-20) pg/ml Total Protein (6.0-8.3) gm/dl Albumin (3.4-5.0) gm/dl Globulin (2.5-4.0) gm/dl Albumin/Globulin Ratio (0.9-2) Salicylates (3.0-30) mg/dl Acetaminophen (10-30) ug/ml Ethyl Alcohol mg/dL (<10.0) mg/dl SARS-CoV-2, RNA, NAAT NEGATIVE (NEGATIVE) Imaging Data Attestation: I personally reviewed and interpreted this imaging study as follo ws: MDM Narrative Prior records/ancillary studies reviewed and summarized above. Nursing notes reviewed. Additional history obtained from nursing. The patient's history was concerning for altered mental status. Differential diagnosis: Etiologies such as metabolic, infection, hypoglycemia, electrolyte abnormalities, cardiac sources, intracerebral event, toxicologic, neurologic, as well as others were entertained. Physical examination: As above. ER treatment provided: IV Lock Normal saline hydration Banana bag, potassium, magnesium An order was placed for continuous cardiac monitoring. The monitor shows a rate of 60-1 50 with a sinus rhythm. On reassessment the patients mental status improved. Diagnostics interpretation by me: ECG: Ordered for weakness Normal sinus, occasional PVC, U waves in the anterior septal leads, T wave inversions and ST depressions diffusely present, rate of 96. Impression normal sinus rhythm with U waves present and T wave inversions and mild ST depressions throughout acutely changed from prior EKG interpreted by myself I think arrhythmia is unlikely. EKG shows no interval abnormalities such as WPW. There are no findings to suggest Brugada syndrome. Cardiac monitoring in the emergency department reveals no tachycardic or bradycardic dysrhythmia. Hypertrophic cardiomyopathy was considered but there are no clear historical elements pointing toward this. EKG is not suggestive. The QRS voltage is not extremely large and there are no suggestive Q waves. The labs revealed no worrisome leukocytosis, severe hypokalemia and oral and IV potassium was ordered. Magnesium was ordered. Banana bag was ordered Negative alcohol Imaging studies: CT C SPINE: Osteopenia and spondylosis. No acute osseous findings. Radiologist: Jerry Roberts M.D. Study ready at 00:07 and initial results transmitted at 00:14 Preliminary Findings Only See Final Report For Complete Findings CT ABDOMEN & PELVIS With Contrast: Elevated right hemidiaphragm with right basilar atelectasis. Hepatic steatosis. Hepatic cysts, largest in the left hepatic lobe measuring up to 4.8 cm. Gallbladder, spleen, pancreas, adrenal glands are unremarkable. No hydronephrosis. Small right kidney cyst. No aortic aneurysm. 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 Normal appendix. No bowel obstruction or inflammation. Diverticulosis without diverticulitis. Left inguinal hernia containing a short loop of sigmoid colon without evidence of incarceration. Normal urinary bladder. Mild prostatomegaly. Lumbar spondylosis. No acute osseous findings. Radiologist: Jerry Roberts M.D. CTA CHEST: No evidence of acute pulmonary embolism. No thoracic aortic aneurysm or dissection. Coronary artery atherosclerosis. No pericardial effusion. Right hemidiaphragm elevation. Right basilar atelectasis. No consolidation, effusion, or pneumothorax. No acute osseous findings. Degenerative changes Radiologist: Jerry Roberts M.D. Preliminary Findings Only See Final Report For Complete Findings CT HEAD: No ICH, mass-effect, or edema. Involutional and chronic small vessel ischemic changes. No skull fracture. Sinuses and mastoid air cells are clear. Radiologist: Jerry Roberts M.D. Given the above diagnostic work-up and treatment, this episode appears to be consistent with altered mental status most likely from alcohol withdrawal. Imaging was negative. Potassium and magnesium replaced as above. Patient was written for banana bag and IV fluids. Further treatment will be required. Consultation: A consultation was placed with the hospitalist. The case was discussed and diagnostics were reviewed. The patient was evaluated in the ER for further treatment. The chart was completed utilizing [employer] Speech voice recognition software. Grammatical errors, random word insertions, pronoun errors, and incomplete sentences are an occassional consequence of this system due to software limitations, ambient noise, and hardware issues. Any formal questions or concerns about the content, text, or information contained within the body of this dictation should be directly addressed to the physician assistant executive housekeeper for clarification. Impression & Plan Altered mental status, Hypokalemia, Elevated troponin, Abnormal ECG Discharge Plan Visit Data Chief Complaint: Confusion ED Provider: Jori Ellington ED Midlevel Provider: Hamida Renee Discharge Problem: Altered mental status, Hypokalemia, Elevated troponin, Abnormal ECG Patient Disposition: Admitted As Inpatient Condition: Fair Discharge Instructions Interventions: ED Discharge Assessment Last Done: 05/27/21 03:26 Discharge Problem: Altered mental status Qualifiers: Altered mental status type: unspecified Qualified Code(s): R41.82 - Altered mental status, unspecified
[2021-05-26] MEDS ORDERED: OPTIRAY 320 125ml IV ONE (23:46)
[2021-05-26 23:56] LABS: iSTAT Arterial Blood Gas HCO3 24 meg/L (19-24); iSTAT Arterial Blood Gas pCO2 32 mmHg (35-46); iSTAT Arterial Blood Gas pH 7.49 (7.35-7.45); iSTAT Arterial Blood Gas pO2 75 mmHg (80-95); iSTAT Carbon Dioxide 25 mmol/L (24-31)
[2021-05-26] MEDS: POTASSIUM CHLORIDE / WTR 10 MEQ/100 ML PLCT IV SCH (23:57)
--- NOTE | 2021-05-27 00:07 | Emergency Department Note ---
ED Visit Note Patient was seen and evaluated at the bedside w/ Nhung Renee PA-C. Please see their note for history, physical, details, and disposition. Patient with a known history of alcoholism with significant hypokalemia. Imaging grossly negative and the patient was admitted to the medicine service. . : Altered mental status Qualifiers: Altered mental status type: unspecified Qualified Code(s): R41.82 - Altered mental status, unspecified
[2021-05-27 00:33] LABS: INR 1.2 (0.9-1.1); Partial Thromboplastin Ratio 0.8; Prothrombin Time 12.6 Seconds (9.0-12.0)
[2021-05-27 00:35] LABS: Acetaminophen < 3 ug/ml (10-30); Salicylate < 3.0 mg/dl (3.0-30)
[2021-05-27] MEDS: POTASSIUM CHLORIDE / WTR 10 MEQ/100 ML PLCT IV SCH (00:51)
[2021-05-27] MEDS: MAGNESIUM SULFATE / D5W 1 GM/100 ML BAG IV SCH ×2 (00:57→02:05)
--- NOTE | 2021-05-27 01:15 | History & Physical Report ---
Date of Service May 27, 2021 Assessment & Plan (1) Altered mental status: Plan: Confusion and disorientation- Likely secondary to alcoholism, and dehydration associated with acute kidney injury and hypokalemia CT head and cervical spine negative (2) Hypokalemia: Plan: Potassium 2.3 upon admission Received oral and IV supplementation while in ED, will continue with potassium via IV fluids (3) Elevated troponin: Plan: The patient will be admitted to telemetry for serial cardiac enzymes, serial EKG's, cardiac rhythm monitoring and a 2-D echocardiogram with Dopplers. Troponin has already been decreasing in the emergency department from initial value of 29.7 down to 25.3 (4) Acute kidney injury: Plan: Creatinine 1.72 upon admission, with baseline 1.03 Replace with IV fluids, and recheck laboratories in a.m. (5) Hypertension: Plan: Reduce amlodipine from 10 to 5 mg daily (6) Alcoholism: Plan: Placed on AWSS protocol Patient did receive 1 banana bag while in the ED Thiamine 100 mg p.o. every morning, folic acid 1 mg p.o. every morning, and Nephrocaps 1 p.o. every morning Cessation counseling (7) Dyslipidemia: Plan: Continue atorvastatin 10 mg daily and aspirin 81 mg milligrams daily History of Present Illness Chief Complaint: The patient was brought to the emergency department due to confusion, being found outside, and was drinking tequila Primary Care Provider: Chong Reyes DO The patient is a 76-year-old male with a past medical history including alcohol abuse, hypertension, erectile dysfunction, dyslipidemia, celiac artery aneurysm, carotid artery disease, anemia and alcoholism. He reports that he had been off of alcohol for about 5 months, and this week began drinking tequila half a bottle daily again. He was found outside, and was brought to the ED for assessment. His HPI and review of systems are somewhat limited due to to the patient's medical state Allergies Allergy/AdvReac Type Severity Reaction Status Date / Time No Known Drug Allergies Allergy Unknown . Verified 05/26/21 22:46 Home Medications Medication Instructions Recorded Confirmed Type aspirin 81 mg tablet,delayed 81 mg PO DAILY tab 11/19/18 05/26/21 History release amlodipine 10 mg tablet 10 mg PO DAILY #90 tab 12/07/20 05/26/21 Rx atorvastatin 10 mg tablet 10 mg PO DAILY #90 tab 12/07/20 05/26/21 Rx Past Med/Surg History Medical History Alcoholism Anemia Arteriosclerosis of carotid artery Celiac artery aneurysm Diverticulosis Dyslipidemia Erectile dysfunction Hypertension Internal hemorrhoids Tubular adenoma of colon Surgical History H/O hernia repair abdominal hernia repair with mesh (2002); hospital in [facility] H/O tooth extraction Family History Mother Dementia age 100 Father Stroke age 88 Grandfather (Maternal) Heart disease Social History Smoking Status: Former smoker Tobacco Type: Cigarettes Second Hand Exposure: No; Hx Alcohol Use: No Hx Substance Use: No Preferred Language: Korean Visual Impairment: No Limitations Hearing Ability: Normal 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 HEENT--PERRL, EOMI, mucous membranes and oropharynx dry. Neck--supple. No JVD. No bruits. Thyroid normal, trachea midline, no adenopathy. Heart--normal S1 and S2. No murmurs, rubs or gallops. Lungs--few coarse breath sounds bilaterally. No respiratory distress, no accessory muscle use. Abdomen--normal bowel sounds and soft. Nontender. Nondistended, no hernias or masses, no organomegaly. Extremities--no cyanosis or clubbing. No edema. Dermatologic--normal skin turgor, normal color, no abnormal lymph nodes, no rash. Neurologic--cranial nerves II through XII grossly intact. Rheumatologic--normal range of motion. Psychiatric--normal affect. Results & Data Results & Data ([facility]) Vital Signs (Past 12 Hours) Vital Signs Temp Pulse Pulse Resp BP BP Pulse Ox 05/27/21 00:52 93 H 20 112/97 99 05/27/21 00:00 94 H 17 138/89 94 05/26/21 22:20 97 05/26/21 21:47 37 C 98 H 18 108/79 99 Laboratory Results Laboratory Results WBC 8.18 K/uL (4.8-10.8) 05/26/21 21:53 RBC 4.06 M/uL (4.7-6.1) L 05/26/21 21:53 Hgb 15.6 g/dL (14.0-18.0) 05/26/21 21:53 POC Hgb 15.3 g/dl (14.0-18.0) 05/26/21 22:32 Hct 43.1 % (42-52) 05/26/21 21:53 POC Hct 45 % (42-52) 05/26/21 22:32 MCV 106.2 fL (80-100) H 05/26/21 21:53 MCH 38.4 pg (25-34) H 05/26/21 21:53 MCHC 36.2 g/dL (32-36) H 05/26/21 21:53 RDW Std Deviation 54.5 fL (36.4-46.3) H 05/26/21 21:53 RDW Coeff of Juan 14.0 % (11.5-14.5) 05/26/21 21:53 Plt Count 263 K/uL (130-400) 05/26/21 21:53 MPV 10.0 fL (7.4-10.4) 05/26/21 21:53 Immature Gran % (Auto) 0.5 % 05/26/21 21:53 Neut % (Auto) 79.9 % 05/26/21 21:53 Lymph % (Auto) 12.7 % 05/26/21 21:53 Dewey % (Auto) 6.6 % 05/26/21 21:53 Eos % (Auto) 0.1 % 05/26/21 21:53 Baso % (Auto) 0.2 % 05/26/21 21:53 Neut # (Auto) 6.53 K/uL (1.4-6.5) H 05/26/21 21:53 Lymph # (Auto) 1.04 K/uL (1.2-3.4) L 05/26/21 21:53 Dewey # (Auto) 0.54 K/uL (0.11-0.59) 05/26/21 21:53 Eos # (Auto) 0.01 K/uL (0-0.5) 05/26/21 21:53 Baso # (Auto) 0.02 K/uL (0-0.2) 05/26/21 21:53 Immature Gran # (Auto) 0.04 K/uL (0.00-0.02) H 05/26/21 21:53 Absolute Nucleated RBC 0.18 K/uL (0-0) H 05/26/21 21:53 Nucleated RBC % (auto) 2.2 % 05/26/21 21:53 RBC Morphology Unremarkable 05/26/21 21:53 PT 12.6 Seconds (9.0-12.0) H 05/26/21 21:53 INR 1.2 (0.9-1.1) H 05/26/21 21:53 APTT 23.0 Seconds (21.0-31.0) 05/26/21 21:53 PTT Ratio 0.8 05/26/21 21:53 POC pH 7.49 (7.35-7.45) H 05/26/21 23:13 POC pCO2 32 mmHg (35-46) L 05/26/21 23:13 POC pO2 75 mmHg (80-95) L 05/26/21 23:13 POC HCO3 24 misty/L (19-24) 05/26/21 23:13 POC Total CO2 25 mmol/L (24-31) 05/26/21 23:13 POC Base Excess 1.0 misty/L (-9-1.8) 05/26/21 23:13 POC ABG O2 Sat 96.0 % (90-95) H 05/26/21 23:13 POC Sodium 139 mmol/L (135-144) 05/26/21 22:32 Sodium 137 mmol/L (136-145) 05/26/21 21:53 POC Potassium 2.6 mmol/L (3.3-5.0) L 05/26/21 22:32 Potassium 2.3 mmol/L (3.5-5.1) L* 05/26/21 21:53 POC Chloride 98 mmol/L (101-112) L 05/26/21 22:32 Chloride 92 mmol/L (98-107) L 05/26/21 21:53 Carbon Dioxide 22 mmol/L (21-32) 05/26/21 21:53 POC Total CO2 25 mmol/L (24-31) 05/26/21 22:32 Anion Gap 23 (3-11) H 05/26/21 21:53 POC Anion Gap 20.0 mmol/L (16-25) 05/26/21 22:32 POC BUN 33 mg/dl (7-18) H 05/26/21 22:32 BUN 28 mg/dl (6-23) H 05/26/21 21:53 Creatinine 1.72 mg/dl (0.6-1.4) H 05/26/21 21:53 POC Creatinine 1.4 mg/dl (0.6-1.3) H 05/26/21 22:32 Est Cr Clr Drug Dosing 34.2 ml/min 05/26/21 21:53 Est GFR ( Amer) 43.2 ml/min 05/26/21 21:53 Est GFR (Non-Af Amer) 37.3 ml/min 05/26/21 21:53 BUN/Creatinine Ratio 16.3 (10-20) 05/26/21 21:53 Glucose 191 mg/dl (70-99(Fasting)) H 05/26/21 21:53 POC Glucose (other) 174 mg/dl (70-99) H 05/26/21 22:32 Osmolality 309 mOsm/kg (280-300) H 05/26/21 21:53 Calcium 11.3 mg/dl (8.5-10.1) H 05/26/21 21:53 POC Ioniz Calcium Naida 1.25 mmol/l (1.12-1.32) 05/26/21 22:32 Magnesium 2.1 mg/dl (1.7-2.4) 05/26/21 21:53 Total Bilirubin 1.6 mg/dl (0.2-1.0) H 05/26/21 21:53 AST 59 U/L (13-39) H 05/26/21 21:53 ALT 53 U/L (7-52) H 05/26/21 21:53 Alkaline Phosphatase 74 U/L (34-104) 05/26/21 21:53 Ammonia 18.0 umol/L (18-72) 05/26/21 23:05 Total Creatine Kinase 44 U/L (30-223) 05/26/21 21:53 Troponin I High Sens 25.3 pg/ml (0-20) H 05/26/21 23:49 Total Protein 8.3 gm/dl (6.0-8.3) 05/26/21 21:53 Albumin 4.3 gm/dl (3.4-5.0) 05/26/21 21:53 Globulin 4.0 gm/dl (2.5-4.0) 05/26/21 21:53 Albumin/Globulin Ratio 1.1 (0.9-2) 05/26/21 21:53 Salicylates < 3.0 mg/dl (3.0-30) L 05/26/21 23:49 Acetaminophen < 3 ug/ml (10-30) L 05/26/21 23:49 Ethyl Alcohol mg/dL < 10.0 mg/dl (<10.0) 05/26/21 21:53 SARS-CoV-2, RNA, NAAT NEGATIVE (NEGATIVE) 05/27/21 00:02 Diagnostic Findings [facility] Patient: ELIZABETH OROZCO (Male) : 41 Status: ER Date: 05/27/21 00:00 Room #: History: AMS, PT STATES NO PAIN Slices: 757 Priors: Tech: Humza Iglesias @ [phone] Exams: CT C SPINE Contrast: Accession Numbers: [id number] Referring Physician: JAYSON WASHINGTON Preliminary Findings Only See Final Report For Complete Findings CT C SPINE: Osteopenia and spondylosis. No acute osseous findings. Radiologist: Jerry Roberts M.D. Study ready at 00:07 and initial results transmitted at 00:14 *This report constitutes a preliminary interpretation only. Non-acute findings felt to be unrelated to the clinical presentation may not be discussed in this report. The study will be interpreted and a final report will be generated by the local Radiologist the following shift. To reach the [facility] radiology department call [phone]. If a discrepancy is found between the preliminary and final interpretations of this study, please notify us via our Client Portal at [email or web address], under [email or web address]. You can also fax this report with a description of the discrepancy, or include the final report, to our daytime fax number [phone]. If faxing, please indicate the severity of discrepancy using one of the following categories: [ ] 1 - Agree/Informational [ ] 2 - Unlikely to Affect Management [ ] 3 - Possible Eventual Change of Management [ ] 4 - Probable Immediate Change of Management For all other patient related information, please fax us at [phone]. [id number] [facility] Patient: ELIZABETH OROZCO (Male) : 41 Status: ER Date: 05/27/21 00:01 Room #: History: AMS, PT STATES NO PAIN Slices: 735 Priors: Tech: Humza Iglesias @ [phone] Exams: CT ABDOMEN & PELVIS With Contrast Contrast: IV Amt: 118 ML OPTIRAY 320 Accession Numbers: [id number] Referring Physician: JAYSON WASHINGTON Preliminary Findings Only See Final Report For Complete Findings CT ABDOMEN & PELVIS With Contrast: Elevated right hemidiaphragm with right basilar atelectasis. Hepatic steatosis. Hepatic cysts, largest in the left hepatic lobe measuring up to 4.8 cm. Gallbladder, spleen, pancreas, adrenal glands are unremarkable. No hydronephrosis. Small right kidney cyst. No aortic aneurysm. 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 Normal appendix. No bowel obstruction or inflammation. Diverticulosis without diverticulitis. Left inguinal hernia containing a short loop of sigmoid colon without evidence of incarceration. Normal urinary bladder. Mild prostatomegaly. Lumbar spondylosis. No acute osseous findings. Radiologist: Jerry Roberts M.D. Study ready at 00:06 and initial results transmitted at 00:17 *This report constitutes a preliminary interpretation only. Non-acute findings felt to be unrelated to the clinical presentation may not be discussed in this report. The study will be interpreted and a final report will be generated by the local Radiologist the following shift. To reach the [facility] radiology department call [phone]. If a discrepancy is found between the preliminary and final interpretations of this study, please notify us via our Client Portal at [email or web address], under [email or web address]. You can also fax this report with a description of the discrepancy, or include the final report, to our daytime fax number [phone]. If faxing, please indicate the severity of discrepancy using one of the following categories: [ ] 1 - Agree/Informational [ ] 2 - Unlikely to Affect Management [ ] 3 - Possible Eventual Change of Management [ ] 4 - Probable Immediate Change of Management For all other patient related information, please fax us at [phone]. [id number] [facility] Patient: ELIZABETH OROZCO (Male) : 41 Status: ER Date: 05/27/21 00:01 Room #: History: EVAL FOR PE, AMS PT STATES NO PAIN Slices: 777 Priors: Tech: Humza Iglesias @ [phone] Exams: CTA CHEST Contrast: IV Amt: 118 ML OPTIRAY 320 Accession Numbers: [id number] Referring Physician: JAYSON WASHINGTON Preliminary Findings Only See Final Report For Complete Findings CTA CHEST: No evidence of acute pulmonary embolism. No thoracic aortic aneurysm or dissection. Coronary artery atherosclerosis. No pericardial effusion. Right hemidiaphragm elevation. Right basilar atelectasis. No consolidation, effusion, or pneumothorax. No acute osseous findings. Degenerative changes Radiologist: Jerry Roberts M.D. Study ready at 00:04 and initial results transmitted at 00:19 *This report constitutes a preliminary interpretation only. Non-acute findings felt to be unrelated to the clinical presentation may not be discussed in this report. The study will be interpreted and a final report will be generated by the local Radiologist the following shift. To reach the [facility] radiology department call [phone]. If a discrepancy is found between the preliminary and final interpretations of this study, please notify us via our Client Portal at [email or web address], under [email or web address] [email or web address]. You can also fax this report with a description of the discrepancy, or include the final report, to our daytime fax number [phone]. If faxing, please indicate the severity of discrepancy using one of the following categories: [ ] 1 - Agree/Informational [ ] 2 - Unlikely to Affect Management [ ] 3 - Possible Eventual Change of Management [ ] 4 - Probable Immediate Change of Management For all other patient related information, please fax us at [phone]. [id number] [facility] Patient: ELIZABETH OROZCO (Male) : 41 Status: ER Date: 05/27/21 00:02 Room #: History: ALTERED MENTAL STATUS Slices: 67 Priors: Tech: Humza Iglesias @ [phone] Exams: CT HEAD Contrast: Accession Numbers: [id number] Referring Physician: JAYSON WASHINGTON Preliminary Findings Only See Final Report For Complete Findings CT HEAD: No ICH, mass-effect, or edema. Involutional and chronic small vessel ischemic changes. No skull fracture. Sinuses and mastoid air cells are clear. Radiologist: Jerry Roberts M.D. Study ready at 00:02 and initial results transmitted at 00:21 *This report constitutes a preliminary interpretation only. Non-acute findings felt to be unrelated to the clinical presentation may not be discussed in this report. The study will be interpreted and a final report will be generated by the local Radiologist the following shift. To reach the [facility] radiology department call [phone]. If a discrepancy is found between the preliminary and final interpretations of this study, please notify us via our Client Portal at [email or web address], under [email or web address] [email or web address]. You can also fax this report with a description of the discrepancy, or include the final report, to our daytime fax number [phone]. If faxing, please indicate the severity of discrepancy using one of the following categories: [ ] 1 - Agree/Informational [ ] 2 - Unlikely to Affect Management [ ] 3 - Possible Eventual Change of Management [ ] 4 - Probable Immediate Change of Management For all other patient related information, please fax us at [phone]. [id number] Code Status & VTE Plan Code Status Full code VTE Prophylaxis Plan VTE Prophylaxis will be ordered: Yes PG Care Time/CCT Total # of Minutes Spent Total Time Spent with Patient: Total time spent is greater than 50% in coordination of care (as documented) at patient's floor/unit and/or counseling patient: Coding Level of Care Code 17374 Initial Inpt Care Lvl 3 Diagnoses Altered mental status R41.82 Altered mental status type: unspecified Hypokalemia E87.6 Elevated troponin R77.8 Acute kidney injury N17.9 Hypertension I10 Alcoholism F10.20 Dyslipidemia E78.5 (1) Altered mental status Altered mental status type: unspecified Qualified Code(s): R41.82 - Altered mental status, unspecified
[2021-05-27] MEDS ORDERED: ONDANSETRON INJ 2 MG/ML 2 ML VIAL IV PRN (03:55)
[2021-05-27] MEDS: NSS + 20MEQ KCL 20 MEQ/1,000 ML BAG IV SCH ×2 (05:14→16:16)
--- NOTE | 2021-05-27 07:10 | CT Scan Report ---
HEAD CT NONCONTRAST CT DOSE: HISTORY: Altered mental status. TECHNIQUE: Multiaxial CT images of the head were performed without the use of intravenous contrast. A utomated exposure control was utilized for this study. A dose lowering technique was utilized adheri ng to the principles of ALARA. Comparison: None. Findings: The paranasal sinuses and mastoid air cells are clear. The calvarium and skull base are int act. There is no mass, hematoma, midline shift, acute infarct. White matter hypodensity is nonspecifi c but suggestive of microvascular ischemic change. The ventricles and sulci demonstrate mild age-rela yomaira involutional changes. Impression: No acute intracranial abnormality. Atrophy and microvascular ischemic changes. ACT 112: Negative or not required by law. Electronically signed by: Nathaniel Schultz M.D. 05/27/2021 7:08 AM
--- NOTE | 2021-05-27 07:31 | CT Scan Report ---
CERVICAL SPINE CT CT DOSE: HISTORY: Altered mental status. Neck pain. TECHNIQUE: Multiaxial CT images of the cervical spine were performed and reformatted in the sagittal and coronal plane without the use of contrast. A dose lowering technique was utilized adhering to th e principles of ALARA. COMPARISON: None. FINDINGS: No fractures. No subluxation. Prevertebral soft tissues and the C1-C2 interval are intact. No pneumothorax. The C2-C4 vertebral bodies and facets are fused. Moderate to severe degenerative dis ease within the lower cervical spine. IMPRESSION: No fractures within the cervical spine. ACT 112: Negative or not required by law. Electronically signed by: Nathaniel Schultz M.D. 05/27/2021 7:29 AM
[2021-05-27 07:36] LABS: Alanine Aminotransferase 34 U/L (7-52); Albumin Globulin Ratio 1.1 (0.9-2); Albumin Level 3.1 gm/dl (3.4-5.0); Alkaline Phosphatase 53 U/L (34-104); Anion Gap 11 (3-11); BUN Creatinine Ratio 21.4 (10-20); Blood Urea Nitrogen 25 mg/dl (6-23); Carbon Dioxide 26 mmol/L (21-32); Chloride 101 mmol/L (98-107); Creatinine Clr Calc Pharmacy 50.3 ml/min; Est GFR (African American) 68.8 ml/min; Est GFR (Non-African American) 59.4 ml/min; Globulin 2.8 gm/dl (2.5-4.0); Glucose 95 mg/dl (70-99(Fasting)); Magnesium 2.7 mg/dl (1.7-2.4); Sodium 138 mmol/L (136-145); Total Protein 5.9 gm/dl (6.0-8.3); Troponin I High Sensitivity 24.8 pg/ml (0-20)
--- NOTE | 2021-05-27 07:54 | CT Scan Report ---
CT ANGIOGRAM OF THE CHEST; CT SCAN OF THE ABDOMEN AND PELVIS WITH IV CONTRAST CLINICAL HISTORY: Change in mental status. COMPARISON STUDY: Abdominal CT dated 12/10/2017. TECHNIQUE: Following the IV administration of 118 of Optiray 320, CT angiogram of the chest is perfor med from the upper abdomen to the thoracic inlet utilizing the pulmonary embolus protocol. Images are reviewed in the axial, sagittal, coronal planes. 3-D MIPS images are created and assessed. Subsequen tly, CT scan of the abdomen and pelvis was performed from the lung bases to the proximal femora. Imag es are reviewed in the axial, sagittal, and coronal planes. IV contrast was administered without comp lication. A dose lowering technique was utilized adhering to the principles of ALARA. The examination s are degraded by motion artifact, as well as by streak artifact from the arms which could not be harsh vated above the chest or abdomen. CT DOSE: 1770.49 mGy.cm FINDINGS: CHEST: Thyroid: Imaged portions of the thyroid gland are normal in size and attenuation. Thoracic aorta: The thoracic aorta is normal in caliber and demonstrates standard 3-vessel arch anato my. No dissection is seen. Pulmonary vasculature: The pulmonary trunk is normal in caliber. There are no filling defects identif ied in the main, lobar, or segmental pulmonary arteries to indicate pulmonary embolus. Heart: The heart is mildly enlarged and without pericardial effusion. The coronary arteries are dense ly calcified. Lungs and pleural spaces: There is elevation right hemidiaphragm with segmental atelectasis of the ri ght lower lobe. There is no airspace consolidation typical for pneumonia or pleural effusion. The tra digna is clear. No secretions are noted in the right mainstem bronchus. Mediastinum: There is no mediastinal lymphadenopathy. Larisa: Clear. Axillae: There is no axillary lymphadenopathy. Bony thorax: The skeletal structures are osteopenic. Degenerative change and hyperkyphosis is noted i n the thoracic spine. No lytic or blastic lesions are identified. ABDOMEN AND PELVIS: Liver: The contrast-enhanced liver is normal in size and contour. The liver demonstrates diffusely di minished attenuation consistent with hepatic steatosis. Scattered hepatic cysts measure up to 4.3 cm. There is no intrahepatic or ductal dilatation. The hepatic veins and portal veins are patent. Gallbladder: Unremarkable. Spleen: Normal in size and attenuation. Pancreas: Unremarkable. Adrenal glands: Adrenal glands appear hyperemic. Kidneys: The contrast enhanced kidneys are normal in size and without hydronephrosis. The kidneys enh ance symmetrically. A 1.3 cm cyst is noted in the right upper pole. Abdominal vasculature: The abdominal aorta is normal in course and caliber noting moderate atheroscle rotic calcification. There is aneurysmal dilatation of the celiac trunk which measures up to 1.7 cm. Bowel: There is mild colonic diverticulosis without CT evidence of acute diverticulitis. No bowel obs truction is seen. A left inguinal hernia contains a nonobstructed segment of the sigmoid colon. Some mucosal fat deposition throughout the right colon is nonspecific but has been described in the settin g of chronic inflammation. The appendix is well-visualized and normal. Peritoneum: There is no intraperitoneal free air or abdominal ascites. Lymphadenopathy: None. Pelvic viscera: The prostate gland is enlarged and heterogeneous noting median lobe hypertrophy. Ther e are foci of patchy nodular enhancement within the prostate gland measuring up to 2.8 cm. The bladde r is distended. The wall is thickened and trabeculated indicating chronic outlet obstruction. There i s a large left inguinal hernia containing bowel. Previous right inguinal herniorrhaphy is noted. Skeletal structures: The skeletal structures are osteopenic. There is moderate lumbosacral spondylosi s. Arthritic change is seen in the hips and sacroiliac joints. No lytic or blastic lesions are seen. IMPRESSION: 1. Streak and motion degraded examinations. 2. There is no evidence of pulmonary embolus in the main, lobar, or segmental pulmonary arteries. 3. There is no airspace consolidation typical for pneumonia or pleural effusion. 4. Mild cardiomegaly. 5. No acute infectious or inflammatory findings are identified in the abdomen or pelvis. 6. The adrenal glands appear hyperemic. This is nonspecific but can be seen with hypovolemia/hypotens ion. Clinical correlation will be required. 7. A large left inguinal hernia contains a nonobstructed segment of the sigmoid colon. 8. The prostate gland is enlarged and heterogeneous. There is the suggestion of enhancing nodularity which measures 2.8 cm. The prostate gland is not well evaluated by CT, and correlation with serum PSA levels and physical examination findings is recommended. 9. Hepatic steatosis. 10. Again seen is aneurysmal dilatation of the celiac trunk which measures up to 1.7 cm. 11. Additional findings as above. ACT 112: Positive. There are findings on this exam that require communication between the performing entity and the patient following Patient Test Result Information Act ([place] Act 112) guidelines. Electronically signed by: Idris Lara M.D. 05/27/2021 7:53 AM
--- NOTE | 2021-05-27 08:39 | XRay Report ---
SINGLE VIEW CHEST CLINICAL HISTORY: Change in mental status. FINDINGS: An AP, portable, upright chest radiograph is correlated with chest CT performed earlier the same day dated 05/26/2021. The heart is mildly enlarged. The pulmonary vasculature is noncongested. T here is elevation of the right hemidiaphragm with associated right basilar atelectasis. The lungs and pleural spaces are otherwise clear. No pneumothorax is seen. The skeletal structures are osteopenic. The bony thorax is grossly intact. IMPRESSION: No active disease in the chest. ACT 112: Negative or not required by law. Electronically signed by: Idris Lara M.D. 05/27/2021 8:38 AM
[2021-05-27] MEDS: ASPIRIN 81 MG ECTAB PO SCH (09:18)
[2021-05-27] MEDS: NEPHROCAPS PO SCH (09:18)
[2021-05-27] MEDS: THIAMINE HCL 100 MG TAB PO SCH (09:18)
[2021-05-27] MEDS: FOLIC ACID 1 MG TAB PO SCH (09:18)
[2021-05-27] MEDS: amLODIPine BESYLATE 5 MG TAB PO SCH (09:18)
[2021-05-27] MEDS: ENOXAPARIN INJ 30 MG/0.3 ML SYR SQ SCH (09:19)
[2021-05-27] MEDS: ATORVASTATIN 10 MG TAB PO SCH (09:19)
[2021-05-27 09:20] LABS: Potassium 2.7 mmol/L (3.5-5.1)
[2021-05-27 11:52] LABS: Amphetamines+Metham, Urine Neg (Neg); Barbiturates, Urine Neg (Neg); Benzodiazepine, Urine Neg (Neg); Cocaine, Urine Neg (Neg); MDMA (Ecstacy), Urine Neg (Neg); Methadone, Urine Neg (Neg); Opiate, Urine Neg (Neg); Phencyclidine, Urine Neg (Neg)
--- NOTE | 2021-05-27 13:06 | Hospitalist Progress Note ---
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 Troponin has already been decreasing in the emergency department from initial value of 29.7 down to 25.3 (4) Acute kidney injury: Plan: Resolved (5) Hypertension: Plan: Reduce amlodipine from 10 to 5 mg daily (6) Alcoholism: Plan: Placed on AWSS protocol Patient did receive 1 banana bag while in the ED Thiamine 100 mg p.o. every morning, folic acid 1 mg p.o. every morning, and Nephrocaps 1 p.o. every morning Cessation counseling, patient willing to undergo outpatient rehab (7) Dyslipidemia: Plan: Continue atorvastatin 10 mg daily and aspirin 81 mg milligrams daily Plan: Hope to discharge in the next 24-48 hrs Admission and Anticipated Discharge Date Admission Date: May 27, 2021 Subjective patient seen and examined today, no new complaints, Review of Systems Review of Systems: All systems reviewed are negative, apart from the ones contained in the history. Physical Exam Physical Exam: The patient is awake, alert and oriented 3, unkempt. HEENT--PERRL, EOMI, mucous membranes and oropharynx mildly dry Neck--supple. No JVD. No bruits. Thyroid normal, trachea midline, no adenopathy. Heart--normal S1 and S2. No murmurs, rubs or gallops. Lungs--clear bilaterally, no respiratory distress, no accessory muscle use. Abdomen--normal bowel sounds and soft. Mild epigastric and left sided abdominal pain Extremities--no cyanosis or clubbing. No edema. Dermatologic--normal skin turgor, normal color, no abnormal lymph nodes, no rash. Neurologic--cranial nerves II through XII grossly intact. Rheumatologic--normal range of motion. Psychiatric--normal affect. Results & Data Results & Data ([facility]) Vital Signs (Past 12 Hours) Vital Signs Temp Pulse Pulse Resp BP Pulse Ox 05/27/21 11:53 97.3 F L 79 20 90/63 L 97 05/27/21 09:42 67 05/27/21 08:39 97.3 F L 89 20 116/76 95 05/27/21 04:23 97.5 F L 86 18 138/89 98 05/27/21 03:55 97.5 F L 86 18 138/89 98 05/27/21 03:09 85 18 122/82 94 Diagnostic Findings Laboratory Results - last 24 hr 05/26/21 05/26/21 05/26/21 21:53 21:53 21:53 WBC 8.18 RBC 4.06 L Hgb 15.6 POC Hgb Hct 43.1 POC Hct MCV 106.2 H MCH 38.4 H MCHC 36.2 H RDW Std Deviation 54.5 H RDW Coeff of Juan 14.0 Plt Count 263 MPV 10.0 Immature Gran % (Auto) 0.5 Neut % (Auto) 79.9 Lymph % (Auto) 12.7 [place] % (Auto) 6.6 Eos % (Auto) 0.1 Baso % (Auto) 0.2 Neut # (Auto) 6.53 H Lymph # (Auto) 1.04 L [place] # (Auto) 0.54 Eos # (Auto) 0.01 Baso # (Auto) 0.02 Immature Gran # (Auto) 0.04 H Absolute Nucleated RBC 0.18 H Nucleated RBC % (auto) 2.2 RBC Morphology Unremarkable PT INR APTT PTT Ratio POC pH POC pCO2 POC pO2 POC HCO3 POC Base Excess POC ABG O2 Sat POC Sodium Sodium 137 POC Potassium Potassium 2.3 L* POC Chloride Chloride 92 L Carbon Dioxide 22 POC Total CO2 Anion Gap 23 H POC Anion Gap POC BUN BUN 28 H Creatinine 1.72 H POC Creatinine Est Cr Clr Drug Dosing 34.2 Est GFR ( Amer) 43.2 Est GFR (Non-Af Amer) 37.3 BUN/Creatinine Ratio 16.3 Glucose 191 H POC Glucose (other) Osmolality Calcium 11.3 H POC Ioniz Calcium Naida Magnesium 2.1 Total Bilirubin 1.6 H AST 59 H ALT 53 H Alkaline Phosphatase 74 Ammonia Total Creatine Kinase 44 Troponin I High Sens 29.7 H Total Protein 8.3 Albumin 4.3 Globulin 4.0 Albumin/Globulin Ratio 1.1 Salicylates Urine Opiates Screen Ur Methadone, Qual Acetaminophen Urine Barbiturates Ur Phencyclidine (PCP) U Amphetamin/Meth Scrn MDMA (Ecstasy) Screen U Benzodiazepines Scrn Ur Cocaine Metabolite U Marijuana (THC) Screen Ethyl Alcohol mg/dL < 10.0 SARS-CoV-2, RNA, NAAT 05/26/21 05/26/21 05/26/21 21:53 21:53 22:32 WBC RBC Hgb POC Hgb 15.3 Hct POC Hct 45 MCV MCH MCHC RDW Std Deviation RDW Coeff of Juan Plt Count MPV Immature Gran % (Auto) Neut % (Auto) Lymph % (Auto) [place] % (Auto) Eos % (Auto) Baso % (Auto) Neut # (Auto) Lymph # (Auto) [place] # (Auto) Eos # (Auto) Baso # (Auto) Immature Gran # (Auto) Absolute Nucleated RBC Nucleated RBC % (auto) RBC Morphology PT 12.6 H INR 1.2 H APTT 23.0 PTT Ratio 0.8 POC pH POC pCO2 POC pO2 POC HCO3 POC Base Excess POC ABG O2 Sat POC Sodium 139 Sodium POC Potassium 2.6 L Potassium POC Chloride 98 L Chloride Carbon Dioxide POC Total CO2 25 Anion Gap POC Anion Gap 20.0 POC BUN 33 H BUN Creatinine POC Creatinine 1.4 H Est Cr Clr Drug Dosing Est GFR ( Amer) Est GFR (Non-Af Amer) BUN/Creatinine Ratio Glucose POC Glucose (other) 174 H Osmolality 309 H Calcium POC Ioniz Calcium Naida 1.25 Magnesium Total Bilirubin AST ALT Alkaline Phosphatase Ammonia Total Creatine Kinase Troponin I High Sens Total Protein Albumin Globulin Albumin/Globulin Ratio Salicylates Urine Opiates Screen Ur Methadone, Qual Acetaminophen Urine Barbiturates Ur Phencyclidine (PCP) U Amphetamin/Meth Scrn MDMA (Ecstasy) Screen U Benzodiazepines Scrn Ur Cocaine Metabolite U Marijuana (THC) Screen Ethyl Alcohol mg/dL SARS-CoV-2, RNA, NAAT 05/26/21 05/26/21 05/26/21 23:05 23:13 23:49 WBC RBC Hgb POC Hgb Hct POC Hct MCV MCH MCHC RDW Std Deviation RDW Coeff of Juan Plt Count MPV Immature Gran % (Auto) Neut % (Auto) Lymph % (Auto) [place] % (Auto) Eos % (Auto) Baso % (Auto) Neut # (Auto) Lymph # (Auto) [place] # (Auto) Eos # (Auto) Baso # (Auto) Immature Gran # (Auto) Absolute Nucleated RBC Nucleated RBC % (auto) RBC Morphology PT INR APTT PTT Ratio POC pH 7.49 H POC pCO2 32 L POC pO2 75 L POC HCO3 24 POC Base Excess 1.0 POC ABG O2 Sat 96.0 H POC Sodium Sodium POC Potassium Potassium POC Chloride Chloride Carbon Dioxide POC Total CO2 25 Anion Gap POC Anion Gap POC BUN BUN Creatinine POC Creatinine Est Cr Clr Drug Dosing Est GFR ( Amer) Est GFR (Non-Af Amer) BUN/Creatinine Ratio Glucose POC Glucose (other) Osmolality Calcium POC Ioniz Calcium Naida Magnesium Total Bilirubin AST ALT Alkaline Phosphatase Ammonia 18.0 Total Creatine Kinase Troponin I High Sens Total Protein Albumin Globulin Albumin/Globulin Ratio Salicylates < 3.0 L Urine Opiates Screen Ur Methadone, Qual Acetaminophen < 3 L Urine Barbiturates Ur Phencyclidine (PCP) U Amphetamin/Meth Scrn MDMA (Ecstasy) Screen U Benzodiazepines Scrn Ur Cocaine Metabolite U Marijuana (THC) Screen Ethyl Alcohol mg/dL SARS-CoV-2, RNA, NAAT 05/26/21 05/27/21 05/27/21 23:49 00:02 05:44 WBC RBC Hgb POC Hgb Hct POC Hct MCV MCH MCHC RDW Std Deviation RDW Coeff of Juan Plt Count MPV Immature Gran % (Auto) Neut % (Auto) Lymph % (Auto) [place] % (Auto) Eos % (Auto) Baso % (Auto) Neut # (Auto) Lymph # (Auto) [place] # (Auto) Eos # (Auto) Baso # (Auto) Immature Gran # (Auto) Absolute Nucleated RBC Nucleated RBC % (auto) RBC Morphology PT INR APTT PTT Ratio POC pH POC pCO2 POC pO2 POC HCO3 POC Base Excess POC ABG O2 Sat POC Sodium Sodium 138 POC Potassium Potassium TNP POC Chloride Chloride 101 Carbon Dioxide 26 POC Total CO2 Anion Gap 11 POC Anion Gap POC BUN BUN 25 H Creatinine 1.17 D POC Creatinine Est Cr Clr Drug Dosing 50.3 Est GFR ( Amer) 68.8 Est GFR (Non-Af Amer) 59.4 BUN/Creatinine Ratio 21.4 H Glucose 95 POC Glucose (other) Osmolality Calcium 9.0 D POC Ioniz Calcium Naida Magnesium 2.7 H Total Bilirubin 1.0 D AST TNP ALT 34 Alkaline Phosphatase 53 Ammonia Total Creatine Kinase Troponin I High Sens 25.3 H 24.8 H Total Protein 5.9 L D Albumin 3.1 L Globulin 2.8 Albumin/Globulin Ratio 1.1 Salicylates Urine Opiates Screen Ur Methadone, Qual Acetaminophen Urine Barbiturates Ur Phencyclidine (PCP) U Amphetamin/Meth Scrn MDMA (Ecstasy) Screen U Benzodiazepines Scrn Ur Cocaine Metabolite U Marijuana (THC) Screen Ethyl Alcohol mg/dL SARS-CoV-2, RNA, NAAT NEGATIVE 05/27/21 05/27/21 08:11 10:40 WBC RBC Hgb POC Hgb Hct POC Hct MCV MCH MCHC RDW Std Deviation RDW Coeff of Juan Plt Count MPV Immature Gran % (Auto) Neut % (Auto) Lymph % (Auto) [place] % (Auto) Eos % (Auto) Baso % (Auto) Neut # (Auto) Lymph # (Auto) [place] # (Auto) Eos # (Auto) Baso # (Auto) Immature Gran # (Auto) Absolute Nucleated RBC Nucleated RBC % (auto) RBC Morphology PT INR APTT PTT Ratio POC pH POC pCO2 POC pO2 POC HCO3 POC Base Excess POC ABG O2 Sat POC Sodium Sodium POC Potassium Potassium 2.7 L POC Chloride Chloride Carbon Dioxide POC Total CO2 Anion Gap POC Anion Gap POC BUN BUN Creatinine POC Creatinine Est Cr Clr Drug Dosing Est GFR ( Amer) Est GFR (Non-Af Amer) BUN/Creatinine Ratio Glucose POC Glucose (other) Osmolality Calcium POC Ioniz Calcium Naida Magnesium Total Bilirubin AST 42 H ALT Alkaline Phosphatase Ammonia Total Creatine Kinase Troponin I High Sens Total Protein Albumin Globulin Albumin/Globulin Ratio Salicylates Urine Opiates Screen Neg Ur Methadone, Qual Neg Acetaminophen Urine Barbiturates Neg Ur Phencyclidine (PCP) Neg U Amphetamin/Meth Scrn Neg MDMA (Ecstasy) Screen Neg U Benzodiazepines Scrn Neg Ur Cocaine Metabolite Neg U Marijuana (THC) Screen Neg Ethyl Alcohol mg/dL SARS-CoV-2, RNA, NAAT PG Care Time/CCT Total # of Minutes Spent Total Time Spent with Patient: Total time spent is greater than 50% in coordination of care (as documented) at patient's floor/unit and/or counseling patient: Coding Level of Care Code 45340 Subseq Hosp Care Lvl 2 Diagnoses Altered mental status R41.82 Altered mental status type: unspecified Hypokalemia E87.6 Elevated troponin R77.8 Acute kidney injury N17.9 Hypertension I10 Alcoholism F10.20 Dyslipidemia E78.5 Time Spent (min) 35 (1) Altered mental status Altered mental status type: unspecified Qualified Code(s): R41.82 - Altered mental status, unspecified
--- NOTE | 2021-05-27 18:03 | XCELERA ---
[id number]
--- NOTE | 2021-05-27 22:11 | Electrocardiogram Report ---
Test Reason : Blood Pressure : / mmHG Vent. Rate : 096 BPM Atrial Rate : 096 BPM P-R Int : 184 ms QRS Dur : 098 ms QT Int : 334 ms P-R-T Axes : 037 -11 206 degrees QTc Int : 421 ms Sinus rhythm with occasional Premature ventricular complexes Abnormal ECG When compared with ECG of 18-AUG-2016 07:32, Premature ventricular complexes are now Present ST now depressed in Anterior leads T wave inversion now evident in Inferior leads T wave inversion now evident in Anterior leads Confirmed by Rafy Medina ([id number]) on 05/27/2021 10:10:45 PM Referred By: REFERRED SELF Confirmed By:Rafy Medina
[2021-05-28] MEDS: NSS + 20MEQ KCL 20 MEQ/1,000 ML BAG IV SCH ×3 (02:32→20:17)
--- NOTE | 2021-05-28 06:28 | Electrocardiogram Report ---
Test Reason : Blood Pressure : / mmHG Vent. Rate : 074 BPM Atrial Rate : 074 BPM P-R Int : 184 ms QRS Dur : 100 ms QT Int : 368 ms P-R-T Axes : 050 -15 -51 degrees QTc Int : 408 ms Sinus rhythm with occasional Premature ventricular complexes Low voltage QRS Cannot rule out Anterior infarct , age undetermined Abnormal ECG When compared with ECG of 26-MAY-2021 22:14, Nonspecific T wave abnormality has replaced inverted T waves in Inferior leads T wave inversion less evident in Lateral leads and anterior leads Confirmed by Rafy Medina ([id number]) on 05/28/2021 6:28:37 AM Referred By: REFERRED SELF Confirmed By:aRfy Medina
[2021-05-28] MEDS: ATORVASTATIN 10 MG TAB PO SCH (08:10)
[2021-05-28] MEDS: FOLIC ACID 1 MG TAB PO SCH (08:10)
[2021-05-28] MEDS: amLODIPine BESYLATE 5 MG TAB PO SCH (08:11)
[2021-05-28] MEDS: THIAMINE HCL 100 MG TAB PO SCH (08:11)
[2021-05-28] MEDS: ASPIRIN 81 MG ECTAB PO SCH (08:11)
[2021-05-28] MEDS: ENOXAPARIN INJ 30 MG/0.3 ML SYR SQ SCH (08:11)
[2021-05-28] MEDS: NEPHROCAPS PO SCH (08:11)
[2021-05-28 09:31] LABS: BUN Creatinine Ratio 21.3 (10-20); Calcium 8.8 mg/dl (8.5-10.1); Creatinine Clr Calc Pharmacy 73.6 ml/min; Est GFR (African American) 99.2 ml/min; Est GFR (Non-African American) 85.6 ml/min; Potassium 2.9 mmol/L (3.5-5.1)
--- NOTE | 2021-05-28 11:52 | Hospitalist Progress Note ---
Date of Service May 28, 2021 Assessment & Plan (1) Altered mental status: Plan: Acute toxic encephalopathy secondary to alcohol intoxication Patient appears to be at baseline now CT head and cervical spine negative (2) Hypokalemia: Plan: resolved (3) Elevated troponin: Plan: No sign of ischemic changes on EKG Trop trended down (4) Acute kidney injury: Plan: Resolved (5) Hypertension: Plan: Reduce amlodipine from 10 to 5 mg daily (6) Alcoholism: Plan: Placed on AWSS protocol Patient did receive 1 banana bag while in the ED Thiamine 100 mg p.o. every morning, folic acid 1 mg p.o. every morning, and Nephrocaps 1 p.o. every morning Cessation counseling, patient willing to undergo outpatient rehab (7) Dyslipidemia: Plan: Continue atorvastatin 10 mg daily and aspirin 81 mg milligrams daily Plan: I spoke at length with his daughter, Judy ([phone]) Patient lives alone and not able to adequately take care of himself. However, patient wants to go home and I believe he has the capacity to make his own decisions. he is vehemently opposed to SNF Judy Promised to go clean up his house tomorrow in anticipation of discharge. Admission and Anticipated Discharge Date Admission Date: May 27, 2021 Subjective patient seen and examined today, no new complaints, wants to go home Review of Systems Review of Systems: All systems reviewed are negative, apart from the ones contained in the history. Physical Exam Physical Exam: The patient is awake, alert and oriented 3, unkempt. HEENT--PERRL, EOMI, mucous membranes and oropharynx mildly dry Neck--supple. No JVD. No bruits. Thyroid normal, trachea midline, no adenopathy. Heart--normal S1 and S2. No murmurs, rubs or gallops. Lungs--clear bilaterally, no respiratory distress, no accessory muscle use. Abdomen--normal bowel sounds and soft. Mild epigastric and left sided abdominal pain Extremities--no cyanosis or clubbing. No edema. Dermatologic--normal skin turgor, normal color, no abnormal lymph nodes, no rash. Neurologic--cranial nerves II through XII grossly intact. Rheumatologic--normal range of motion. Psychiatric--normal affect. Results & Data Results & Data ([facility]) Vital Signs (Past 12 Hours) Vital Signs Temp Pulse Pulse Resp BP Pulse Ox 05/28/21 11:09 97.9 F 73 18 129/83 98 05/28/21 07:34 67 05/28/21 07:00 97.5 F L 66 20 124/84 99 05/28/21 04:22 97.5 F L 66 20 129/82 100 05/28/21 02:33 74 PG Care Time/CCT Total # of Minutes Spent Total Time Spent with Patient: Total time spent is greater than 50% in coordination of care (as documented) at patient's floor/unit and/or counseling patient: Coding Level of Care Code 80888 Subseq Hosp Care Lvl 2 Diagnoses Altered mental status R41.82 Altered mental status type: unspecified Hypokalemia E87.6 Elevated troponin R77.8 Acute kidney injury N17.9 Hypertension I10 Alcoholism F10.20 Dyslipidemia E78.5 Time Spent (min) 35 (1) Altered mental status Altered mental status type: unspecified Qualified Code(s): R41.82 - Altered mental status, unspecified
[2021-05-28] MEDS ORDERED: POTASSIUM CHLORIDE CRTAB 20 MEQ TABCR PO STA (12:02)
[2021-05-28] MEDS ORDERED: CALCIUM CARBONATE 500 MG CHEWABLE TAB PO PRN (15:27)
[2021-05-28] MEDS: PANTOprazole 40 MG TAB PO SCH (16:34)
[2021-05-29 08:28] LABS: BUN Creatinine Ratio 14.1 (10-20); Calcium 8.3 mg/dl (8.5-10.1); Est GFR (African American) 104.2 ml/min; Est GFR (Non-African American) 89.9 ml/min; Potassium 3.2 mmol/L (3.5-5.1)
[2021-05-29] MEDS: FOLIC ACID 1 MG TAB PO SCH (08:37)
[2021-05-29] MEDS: amLODIPine BESYLATE 5 MG TAB PO SCH (08:37)
[2021-05-29] MEDS: NEPHROCAPS PO SCH (08:37)
[2021-05-29] MEDS: NSS + 20MEQ KCL 20 MEQ/1,000 ML BAG IV SCH (08:37)
[2021-05-29] MEDS: THIAMINE HCL 100 MG TAB PO SCH (08:37)
[2021-05-29] MEDS: ENOXAPARIN INJ 30 MG/0.3 ML SYR SQ SCH (08:37)
[2021-05-29] MEDS: PANTOprazole 40 MG TAB PO SCH (08:37)
[2021-05-29] MEDS: ATORVASTATIN 10 MG TAB PO SCH (08:37)
[2021-05-29] MEDS: ASPIRIN 81 MG ECTAB PO SCH (08:37)
[2021-05-29] MEDS ORDERED: POTASSIUM CHLORIDE CRTAB 20 MEQ TABCR PO SCH (09:00)
--- NOTE | 2021-05-29 12:23 | Discharge Summary ---
Date of Service May 29, 2021 Admission HPI Per Admitting Provider The patient is a 76-year-old male with a past medical history including alcohol abuse, hypertension, erectile dysfunction, dyslipidemia, celiac artery aneurysm, carotid artery disease, anemia and alcoholism. He reports that he had been off of alcohol for about 5 months, and this week began drinking tequila half a bottle daily again. He was found outside, and was brought to the ED for assessment. His HPI and review of systems are somewhat limited due to to the patient's medical state Principal Diagnosis Alcohol intoxication and withdrawal Discharge Exam General: A&Ox3. NAD. Cooperative. Disheveled. HEENT: Atraumatic, normocephalic. Vision/hearing grossly intact Pulm: CTAB A&P. -wheezes, -rales, -rhonchi. Symmetrical chest rise. No increase in work of breathing. No respiratory distress. Cardiac: RRR, -mrg. Radial pulses intact and symmetrical. Abdominal: Nontender, nondistended, soft. BS present. Extremities: Maintenance Associate strength, ankle dorsiflexion/plantarflexion intact with 5/5 strength bilaterally, sensation is soft touch intact in hands and ankles bilaterally without deficit. Physical therapy evaluation was discussed but declined by patient. Get up and go test was performed at bedside with provider. With arms crossed across chest patient was able to stand from a seated position on the bed, ambulate 20 feet, turn around, and returned to the bed with a heel based gait. Patient was contact-guard, and balance was poor, encouragement was provided to undergo a full physical therapy reevaluation and home physical therapy but patient again declined this. Discharge Data Allergies Allergy/AdvReac Type Severity Reaction Status Date / Time No Known Drug Allergies Allergy Unknown . Verified 05/26/21 22:46 Consultations 05/27/21 00:24 ED Decision to Admit Stat Ordered Studies 05/26/21 22:14 CT head/brain wo con Urgent 05/26/21 22:20 CT angio chest PE protocol Urgent 05/26/21 22:51 CT abd pelvis IV con only Urgent CT cervical spine wo con Urgent Hospital Course (1) Altered mental status: Dinesh is a 76-year-old male with past medical history of dyslipidemia, alcoholism who presented with alcohol intoxication and acute encephalopathy. He returned to his normal baseline by time of discharge. Ammonia was normal. He was observed for signs of withdrawal, and did clinically well without signs of withdrawal at time of discharge. His strength did appear poor, physical therapy evaluation and rehab was recommended to patient however he adamantly declined this to multiple providers. Day of discharge warms crossed across chest patient was able to stand from a seated position on the bed, ambulate 20 feet, turn around, and returned to the bed with a heel based gait. Patient was contact- guard, and balance was poor, encouragement was provided to undergo a full physical therapy reevaluation and home physical therapy but patient again declined this. Case was discussed with patient's daughter, who is coming to patient's home to both clean out the house and assist him. Home physical therapy was offered to the patient, he declined this. While these were recommended, patient was able to verbalize the risks of returning home without therapy including falls resulting in debilitating injury or , and expressed understanding accepting of this risk. CT head and cervical spine negative. He was continued on thiamine and folic acid on discharge. Did receive a banana bag with thiamine folic acid supplementation during admission. He was hypokalemic which was repleted. Recommend recheck BMP for stability within 1 week. (2) Hypokalemia: resolved (3) Elevated troponin: No sign of ischemic changes on EKG mild increase on high sensitivity troponin which downtrended consider outpatient stress test at followup (4) Acute kidney injury: Resolved (5) Hypertension: Reduce amlodipine from 10 to 5 mg daily (6) Alcoholism: Placed on AWSS protocol Patient did receive 1 banana bag while in the ED Thiamine 100 mg p.o. every morning, folic acid 1 mg p.o. every morning Cessation counseling, patient willing to undergo outpatient rehab. Resources provided to patient. (7) Dyslipidemia: Continue atorvastatin 10 mg daily and aspirin 81 mg milligrams daily I spoke at length with his daughter, Judy ([phone]) Total Time Total Time Spent Total Time Spent (In Minutes): Time spend day of discharge 45 minutes including direct patient care, documentation, review of labs and images, and coordination of care. Discharge Plan Discharge Items Patient Disposition: Home - Self-Care Reason For Visit: HYPOKALEMIA,BRITTA,ALCOHOL ABUSE Discharge Diagnosis: Alcohol abuse, withdrawal Condition on Discharge: Fair Activity: Per Instructions section Non-emergency contact: Primary Care Provider Call non-emergency contact if: you have any medication questions, your symptoms worsen and your pain is not controlled Follow-up/Referrals: Chong Reyes, DO [Primary Care Provider] - Diet: Heart Healthy Addtl Attending Provider Instructions: You are seen in the hospital for alcohol withdrawal. You did well overnight, and did not require additional breakthrough doses of medications to stop withdrawal symptoms. Every time he goes through withdrawal you have a risk of DTs and seizures, and alcohol withdrawal can be fatal anytime you go through it. It is recommended that you remain sober/abstinent from alcohol, and abstinence support resources were discussed and contact information was provided during admission. Both the day prior and day of discharge physical therapy evaluation and strength rehab were recommended You declined this, did not wish to go to any form of strength rehab, and wished to return home. You declined home physical therapy. You expressed an understanding that you are at increased risk of falls which can lead to debilitating injury or , and that while he were able to perform a get up and go test your balance was poor increasing fall risk. This was also discussed with your family. Your blood pressure was low to low normal during admission. Your dose of amlodipine has been reduced. When you return home please take amlodipine 5 mg by mouth daily. If you experience low blood pressure, lightheadedness, dizziness or other symptoms of low blood pressure please contact your provider for evaluation, and stop taking this medication. Alcohol can cause low levels of certain vitamins. You have been prescribed thiamine, and folic acid as noted below. These are water-soluble vitamins that are often low with chronical alcohol use, and low levels can contribute to poor memory, confusion, and falls. If you develop any new or worsening symptoms including fever, chills, sweats, chest pain, chest pressure, difficulty breathing, uncontrolled nausea/vomiting, rash, wheezing, passing out or nearly passing out, bleeding, black/bloody bowel movements, or other new or concerning symptoms please call your primary care physician, or call 911 for re-evaluation in the emergency department if you are very concerned. Pending Studies at Discharge: No Stand-Alone Forms: [employer], Smoking Cessation Medications and DC Order Prescriptions: New thiamine HCl (vitamin B1) 100 mg Tablet 100 mg PO QAM Qty: 30 RF: 0 folic acid 1 mg Tablet 1 mg PO QAM Qty: 30 RF: 0 Continued aspirin 81 mg tablet,delayed release (DR/EC) 81 mg PO DAILY RF: 0 atorvastatin 10 mg tablet 10 mg PO DAILY Qty: 90 RF: 3 Changed amlodipine 10 mg tablet 5 mg PO DAILY Qty: 90 RF: 3 Discharge Orders: Discharge Order (Routine); Ordered 05/29/21 Ordered By: Tha Kwok Admission Data Admit Date/Time: 05/27/21 01:06 Attending Provider: Tha Kwok Admit Provider: Gianni Solitario Primary Care Provider: Chong Reyes Other Providers: Gianni Solitario Other Interventions: Discharge Summary Assessment (RN) Last Done: 05/29/21 13:38 Coding Level of Care Code D/C DAY MANAGEMENT >30 MINS Diagnoses Altered mental status R41.82 Altered mental status type: unspecified Hypokalemia E87.6 Elevated troponin R77.8 Acute kidney injury N17.9 Hypertension I10 Alcoholism F10.20 Dyslipidemia E78.5
== END 2021-05-29 15:00 | disposition home or self-care (01) | DRG 896 ==
LOC: ED 21:37 → 2W 05-27 01:06 → SUATTDRO 05-27 01:06 → 2W 05-27 03:26

== ENCOUNTER 2022-03-13 18:21 | Inpatient (IN) ==
[2022-03-13 19:35] LABS: Basophils # (auto) 0.02 K/uL (0-0.2); Basophils % (auto) 0.3 %; Eosinophils # (auto) 0.13 K/uL (0-0.50); Hematocrit (blood only) 34.9 % (42.0-52.0); Hemoglobin 11.3 g/dl (14.0-18.0); Immature Granulocytes # (auto) 0.02 K/uL (0.01-0.20); Immature Granulocytes % (auto) 0.3 %; Lymphocytes # (auto) 1.83 K/uL (1.2-3.4); Lymphocytes % (auto) 27.8 %; Mean Corpuscular Hemoglobin 34.6 pg (25.0-34.0); Mean Corpuscular Hgb Conc 32.4 g/dL (32.0-36.0); Mean Corpuscular Volume 106.7 fL (80.0-100.0); Mean Platelet Volume 9.1 fL (9.4-12.4); Monocytes # (auto) 0.72 K/uL (0.11-0.59); Monocytes % (auto) 10.9 %; Neutrophils # (auto) 3.86 K/uL (1.40-6.50); Neutrophils % (auto) 58.7 %; Platelet Count 314 K/uL (130-400); RDW Coefficient of Variation 13.3 % (11.5-14.5); RDW Standard Deviation 52.8 fL (36.4-46.3); Red Blood Count 3.27 M/uL (4.70-6.10); White Blood Count 6.58 K/ul (4.8-10.8)
[2022-03-13 19:51] LABS: Albumin Level 2.9 gm/dl (3.4-5.0); Bilirubin,Total 0.9 mg/dl (0.2-1.0); Calcium 8.4 mg/dl (8.5-10.1); Potassium 3.5 mmol/L (3.5-5.1)
[2022-03-13 19:57] LABS: Albumin Globulin Ratio 0.8 (0.9-2); BUN Creatinine Ratio 18.3 (10-20); Creatinine Clr Calc Pharmacy 88.7 ml/min; Est GFR (African American) 103.4 ml/min; Est GFR (Non-African American) 89.2 ml/min; Globulin 3.8 gm/dl (2.5-4.0); Total Protein 6.7 gm/dl (6.0-8.3)
--- NOTE | 2022-03-13 20:05 | Emergency Department Note ---
Impression & Plan Localized swelling of both lower legs, Bilateral lower leg cellulitis, History of alcohol use ED Provider Note NAME: ELIZABETH OROZCO AGE: 77 SEX: M : 1945 ARRIVES VIA: Walk-In INFORMANT: Patient, ED PROVIDER(S): Jori Ellington MD CHIEF COMPLAINT: Leg swelling MEDICAL DECISION MAKING: Patient presents due to concern for leg swelling over the last 3 days. Per review the patient's weight is up approximately 10 kg from his last weight. The patient does have significant bilateral lower extremity edema. Blood work was obtained. Patient does have a normal white count with mild anemia hemoglobin of 11. Platelet count is unremarkable. Kidney function grossly unremarkable. Mild hypercalcemia at 8.4. Lipase 96. Patient denies any alcohol or tobacco use. Patient's more significant lower extremity swelling the patient was ordered IV Lasix Rocephin as the patient does have cellulitic changes and I did speak the on-call hospitalist Dr. Turner resident and Dr. Resendez and the patient was admitted to the medicine service. Prior /Outside records reviewed: I did review the patient's outpatient note from earlier today from Dr. Reyes. Differential diagnosis: Liver dysfunction, kidney dysfunction, DVT, musculoskeletal, infection, joint effusion, trauma, lymphedema, idiopathic, CHF, as well as other pathologies. Diagnostics, as interpreted by me: ECG: None Cardiac monitoring: An order was placed for continuous cardiac monitoring. The monitor shows a rate of with rhythm. Patient was placed on pulse oximetry Medical decision rules: None Imaging studies: See below HPI: Patient presents for leg swelling which she believes began approximate 3 days prior. The patient denies any chest pains or shortness of breath. The patient denies any abdominal pain nausea vomiting. The patient did have a recent bowel movement denies any blood in urine or stool. Patient does not take a diuretic. The patient denies any orthopnea or ZAMAN. The patient spoken with his primary care doctor Dr. Reyes and referred here for further evaluation and treatment and possible admission. The patient has not been taking any daily weight and denies any increase in liquids or salt in the diet. PAST MEDICAL HISTORY: See Below PAST SURGICAL HISTORY: See Below SOCIAL HISTORY: See Below HOME MEDICATIONS: See Below ALLERGIES: See Below VITALS: See Below PHYSICAL EXAMINATION: GENERAL: NAD, wearing a mask, non-toxic. EYE EXAM: Normal conjunctiva. PERRL, no anisocoria and EOM's grossly intact w/o pain. NECK: Supple, no nuchal rigidity, no adenopathy, non-tender. No signs of meningismus. FROM of the neck with good chin to chest and neck extension. No stridor. LUNGS: Clear to auscultation. Normal chest wall mechanics. HEART: NSR, no MRG. ABDOMEN: Abdomen soft, non-tender, normo-active bowel sounds, no masses, no rebound or guarding. BACK: No CVA TTP. SKIN: No rashes and no bruising. UPPER EXTREMITIES: Upper extremities are grossly normal. LOWER EXTREMITIES: Grossly normal, 2-3+ bilateral symmetric lower extremity edema with associated erythema that blanches distal to the knee, neurovascular intact and without crepitus in b/l LEs. NEURO EXAM: A&O x3, cranial nerves II-XII grossly intact, normal speech, moves all 4 extremities. Past Med/Surg History Medical History Alcoholism Anemia Arteriosclerosis of carotid artery Celiac artery aneurysm Diverticulosis Dyslipidemia Erectile dysfunction Gait disorder, alcoholic Hypertension Internal hemorrhoids Tubular adenoma of colon Surgical History H/O hernia repair abdominal hernia repair with mesh (2002); hospital in [facility] H/O tooth extraction Family History Mother Dementia age 100 Father Stroke age 88 Grandfather (Maternal) Heart disease Denies family history of Ovarian cancer Prostate cancer Myocardial infarction Breast cancer Lung cancer Pulmonary embolism Cancer Social History Smoking Status: Unknown if ever smoked Tobacco Type: Cigarettes Second Hand Exposure: No; Hx Alcohol Use: Yes Alcohol type: beer and hard liquor Alcohol Intake Frequency: 4 or More x per/Week Hx Substance Use: No Preferred Language: Estonian Communication Ability: Effective Visual Impairment: No Limitations Hearing Ability: Normal Corn Grinder Required: No Beliefs That Will Affect Care: Jehovah'S Witness marital status: Single Current Living Situation: Alone current occupational status: retired current occupation: does consulting work on the side How many Children do You have: 2 Feels Safe at Home: Yes Childhood Exposure to Second-Hand Smoke: No caffeine: Yes Dental Care, Regularly: Yes Physical Activity Frequency: 5-6 Times per Week Seatbelt Use: always Sunscreen Use: Yes Assistive Devices: None Allergies Allergies Allergy/AdvReac Type Severity Reaction Status Date / Time No Known Allergies Allergy Verified 03/13/22 20:43 Home Meds Home Medications Medication Instructions Recorded Confirmed No Known Home Medications 03/13/22 03/13/22 Results & Data (ED) Vital Signs Vital Signs - 24 hr 03/13/22 18:24 Temperature 36.8 C Temperature Source Temporal Artery Scan Pulse Rate 110 H Respiratory Rate 12 Blood Pressure 156/84 H Blood Pressure Mean 108 Pulse Oximetry 97 Sepsis Recent Fever Within 48 Hours No Sepsis New/Unexplained Change in Mental Status No Sepsis Action Taken by Nursing No Action Required Home Medications Current Medication List: was personally reviewed by me Laboratory Data Attestation: I reviewed the patient's lab results. 03/13/22 19:16 03/13/22 19:16 Lab Results 03/13/22 03/13/22 03/13/22 Range/Units 19:16 19:16 19:16 WBC 6.58 (4.8-10.8) K/ul RBC 3.27 L (4.70-6.10) M/uL Hgb 11.3 L (14.0-18.0) g/dl Hct 34.9 L (42.0-52.0) % MCV 106.7 H (80.0-100.0) fL MCH 34.6 H (25.0-34.0) pg MCHC 32.4 (32.0-36.0) g/dL RDW Std Deviation 52.8 H (36.4-46.3) fL RDW Coeff of Juan 13.3 (11.5-14.5) % Plt Count 314 (130-400) K/uL MPV 9.1 L (9.4-12.4) fL Immature Gran % (Auto) 0.3 % Neut % (Auto) 58.7 % Lymph % (Auto) 27.8 % Oldham % (Auto) 10.9 % Eos % (Auto) 2.0 % Baso % (Auto) 0.3 % Neut # (Auto) 3.86 (1.40-6.50) K/uL Lymph # (Auto) 1.83 (1.2-3.4) K/uL Oldham # (Auto) 0.72 H (0.11-0.59) K/uL Eos # (Auto) 0.13 (0-0.50) K/uL Baso # (Auto) 0.02 (0-0.2) K/uL Immature Gran # (Auto) 0.02 (0.01-0.20) K/uL PT 11.3 (9.0-12.0) Seconds INR 1.1 (0.9-1.1) Sodium 137 (136-145) mmol/L Potassium 3.5 (3.5-5.1) mmol/L Chloride 105 (98-107) mmol/L Carbon Dioxide 28 (21-32) mmol/L Anion Gap 4 (3-11) BUN 13 (6-23) mg/dl Creatinine 0.71 (0.6-1.4) mg/dl Est Cr Clr Drug Dosing 88.7 ml/min Est GFR ( Amer) 103.4 ml/min Est GFR (Non-Af Amer) 89.2 ml/min BUN/Creatinine Ratio 18.3 (10-20) Glucose 86 (70-99(Fasting)) mg/dl Calcium 8.4 L (8.5-10.1) mg/dl Total Bilirubin 0.9 (0.2-1.0) mg/dl AST 37 (13-39) U/L ALT 19 (7-52) U/L Alkaline Phosphatase 68 (34-104) U/L Total Protein 6.7 (6.0-8.3) gm/dl Albumin 2.9 L (3.4-5.0) gm/dl Globulin 3.8 (2.5-4.0) gm/dl Albumin/Globulin Ratio 0.8 L (0.9-2) Lipase 96 H (11-82) U/L Procalcitonin (0-0.5) ng/ml SARS-CoV-2, RNA, NAAT (NEGATIVE) 03/13/22 03/13/22 Range/Units 19:16 20:28 WBC (4.8-10.8) K/ul RBC (4.70-6.10) M/uL Hgb (14.0-18.0) g/dl Hct (42.0-52.0) % MCV (80.0-100.0) fL MCH (25.0-34.0) pg MCHC (32.0-36.0) g/dL RDW Std Deviation (36.4-46.3) fL RDW Coeff of Juan (11.5-14.5) % Plt Count (130-400) K/uL MPV (9.4-12.4) fL Immature Gran % (Auto) % Neut % (Auto) % Lymph % (Auto) % Oldham % (Auto) % Eos % (Auto) % Baso % (Auto) % Neut # (Auto) (1.40-6.50) K/uL Lymph # (Auto) (1.2-3.4) K/uL Oldham # (Auto) (0.11-0.59) K/uL Eos # (Auto) (0-0.50) K/uL Baso # (Auto) (0-0.2) K/uL Immature Gran # (Auto) (0.01-0.20) K/uL PT (9.0-12.0) Seconds INR (0.9-1.1) Sodium (136-145) mmol/L Potassium (3.5-5.1) mmol/L Chloride (98-107) mmol/L Carbon Dioxide (21-32) mmol/L Anion Gap (3-11) BUN (6-23) mg/dl Creatinine (0.6-1.4) mg/dl Est Cr Clr Drug Dosing ml/min Est GFR ( Amer) ml/min Est GFR (Non-Af Amer) ml/min BUN/Creatinine Ratio (10-20) Glucose (70-99(Fasting)) mg/dl Calcium (8.5-10.1) mg/dl Total Bilirubin (0.2-1.0) mg/dl AST (13-39) U/L ALT (7-52) U/L Alkaline Phosphatase (34-104) U/L Total Protein (6.0-8.3) gm/dl Albumin (3.4-5.0) gm/dl Globulin (2.5-4.0) gm/dl Albumin/Globulin Ratio (0.9-2) Lipase (11-82) U/L Procalcitonin 0.17 (0-0.5) ng/ml SARS-CoV-2, RNA, NAAT NEGATIVE (NEGATIVE) Administered Medications Discontinued Medications Furosemide (Furosemide 40 Mg/4 Ml Vial) 40 mg IV ONE ONE Stop: 03/13/22 20:25 Last Admin: 03/13/22 20:35 Dose: 40 mg Documented By: NICOLE Ceftriaxone Sodium (Rocephin) 2,000 mg in 70 mls @ 140 mls/hr IV NOW STA Stop: 03/13/22 21:15 Last Admin: 03/13/22 21:05 Dose: Not Given Documented By: NICOLE Discharge Plan Visit Data Chief Complaint: Referred by Doctor Stated Complaint: REF BY DOC, HERE TO BE ADMIT ED Provider: Jori Ellington Discharge Problem: Localized swelling of both lower legs, Bilateral lower leg cellulitis, History of alcohol use Patient Disposition: Admitted As Inpatient Discharge Instructions Interventions: ED Discharge Assessment Last Done: 03/13/22 23:43
[2022-03-13] MEDS ORDERED: FUROSEMIDE 40 MG/4 ML VIAL IV ONE (20:24)
--- NOTE | 2022-03-13 20:41 | History & Physical Report ---
Date of Service March 13, 2022 Assessment & Plan (1) Hypervolemia: Plan: 77-year-old male with history of alcohol use disorder, anemia, dyslipidemia, hypertension, anasarca who presented to [facility] for evaluation of LE edema x 2 weeks and +10kg weight gain over the past month, subsequently found to be hypervolemic on exam. His appearance is most concerning for acute HFpEF. Hypervolemia, LE Edema - Evidence of 2+ pitting edema in the lower extremities bilaterally - Work-up as follows: AUD history noted -- 10kg + weight gain over the past month (admission weight 83.2kg) -- 2+ pitting edema in the lower extremities bilaterally -- Check CXR and BNP and trop -- BUN, Cr normal; LFTs within normal limits (no e/o acute synthetic dysfunction) -- check INR -- CT-A/P from 05/2021 with e/o hepatic steatosis but no cirrhotic-related changes -- TTE in 05/2021 demonstrated LVEF 65 to 70% without regional wall motion abnormalities, mild LVHhowever, study was technically poor. - Primarily suspect acute HFpEF with added component of dietary indiscretion. He does have reported h/o HTN but is not on any RX (outpatient BPs are normotensive), and also has h/o ASCVD (see below) and bumped troponin during prior hospital stay. No e/o renal dysfunction. His albumin is low, but lower suspicion for progressing liver disease/cirrhosis given prior labs and appearance on CT-A/P in 05/2021. Do not think his lower extremity swelling represents cellulitis - Recheck TTE given previously poor quality and need to assess for interval changes given presentation. --> Consider cardiology consultation pending results / need for further testing while here (stress, etc.) --> Consider CHF clinic establishment pending further w/u - Lasix 40mg IV daily has been ordered - Daily weights, strict I&Os, low Na diet, fluid restriction < 2L - Recommend PSG as outpatient for MIEK work-up - Once acute issues have resolved, consider initiating ACEI/ARB for afterload reduction or BB if appropriate - D/C CFTX (2) Anemia: Plan: Macrocytic Anemia - Stable, chronic problem - Likely component from prior AUD and chronic marrow suppression - Check ferritin, B12, folic acid in AM and replete PRN (3) Arteriosclerosis of carotid artery: Plan: ASCVD - History noted, alongside celiac artery aneurysm. - Per outpatient notes, seems that ?he was supposed to get stress test done in the past but can't find evidence of this - Patient would benefit from statin initiation prior to leaving the hospital - Check lipids, A1c in AM - TTE as above (4) Venous stasis dermatitis: Plan: Venous Stasis Dermatitis - Exam appears to reveal venous stasis dermatitis in setting of progressive and acute LE edema >2 weeks - Fluid restriction, Na restriction - Elevated legs, compression stockings - PT to be consulted- appreciate focusing on LE exercises for fluid return (5) Alcohol use disorder in remission: Plan: Alcohol Use Disorder - History of AUD currently in remission >5 months, attends AA regularly - Do not suspect he is in acute liver failure resulting in anasarca. Albumin 2.9 noted. - May wish to discuss Naltrexone therapy as outpatient pending patient goals, progress Plan Code: Full Diet: Low Na, fluid restriction < 2L PPX: Lovenox Dispo: [facility] History of Present Illness Primary Care Provider: Chong Reyes DO 77-year-old male with history of alcohol use disorder, anemia, dyslipidemia, hypertension, anasarca who presented to [facility] for evaluation of LE edema x 2 weeks. He says it has been harder to get his shoes on. He went to his PCP today who recommended coming to the hospital for further evaluation. He denies ZAMAN, SOB, PND, orthopnea, CP, palpitations. Appetite has been good. No n/v/d. Diet - can+ of soup q.o.d. with salty potatoes and frequent meats, salad dressings. Has h/o AUD. Sober x 5 months. Attends AA meetings. No naltrexone ongoing. Denies tobacco or recreational drug use. Last TTE in 05/2021 demonstrated LVEF 65 to 70% without regional wall motion abnormalities, mild LVHhowever, study was technically poor. No longer on Norvasc x 1 year. In the ED, patient was found to have an admission weight of 83.9 kg from 72.4 on 01/2022. He was tachycardic to 110 with blood pressure 150/100. Admission labs revealed chronic macrocytic anemia with hemoglobin 11.3 and MCV 107, BUN 13/creatinine 0.7, lipase 96. He was given Lasix 40 mg IV. Allergies Allergy/AdvReac Type Severity Reaction Status Date / Time No Known Allergies Allergy Verified 03/13/22 20:43 Home Medications Medication Instructions Recorded Confirmed Type No Known Home Medications 03/13/22 03/13/22 History Past Med/Surg History Medical History Alcoholism Anemia Arteriosclerosis of carotid artery Celiac artery aneurysm Diverticulosis Dyslipidemia Erectile dysfunction Gait disorder, alcoholic Hypertension Internal hemorrhoids Tubular adenoma of colon Surgical History H/O hernia repair abdominal hernia repair with mesh (2002); hospital in [facility] H/O tooth extraction Family History Mother Dementia age 100 Father Stroke age 88 Grandfather (Maternal) Heart disease Denies family history of Ovarian cancer Prostate cancer Myocardial infarction Breast cancer Lung cancer Pulmonary embolism Cancer Social History Smoking Status: Unknown if ever smoked Tobacco Type: Cigarettes Second Hand Exposure: No; Hx Alcohol Use: Yes Alcohol type: beer and hard liquor Alcohol Intake Frequency: 4 or More x per/Week Hx Substance Use: No Preferred Language: Setswana Communication Ability: Effective Visual Impairment: No Limitations Hearing Ability: Normal Security Threat Analyst Required: No Beliefs That Will Affect Care: Uatsdin marital status: Single Current Living Situation: Alone current occupational status: retired current occupation: does consulting work on the side How many Children do You have: 2 Feels Safe at Home: Yes Childhood Exposure to Second-Hand Smoke: No caffeine: Yes Dental Care, Regularly: Yes Physical Activity Frequency: 5-6 Times per Week Seatbelt Use: always Sunscreen Use: Yes Assistive Devices: None Review of Systems Review of Systems: as per HPI Physical Exam Physical Exam: General: 77-year old male who is alert, oriented, and appears in no acute distress. HEENT: NCAT. - Eyes - Sclera are white, anicteric, and without injection. - Mouth - MMM - Neck - supple, +JVD with hepatojugular reflux Cardiac: Tachycardic with regular rhythm; S1 and S2 present with no murmurs, rubs, or gallops. Pulmonary: Good respiratory effort with symmetric expansion of the chest. No use of accessory muscles. Lungs were clear to auscultation bilaterally with no crackles or wheezes. Abdominal: Normoactive bowel sounds. Abdomen was soft, mildly distended, and non-tender to palpation. Extremities: Upper and lower extremities are warm and well perfused. 2+ peripheral edema in the lower extremities bilaterally with associated erythematous changes. Psych: Well-developed, well-nourished, appropriately dressed for occasion. Behavior is cooperative and appropriate. Affect is WNL. Insight is appropriate. Results & Data Results & Data ([facility]) Vital Signs (Past 12 Hours) Vital Signs Temp Pulse Resp BP Pulse Ox 03/13/22 18:24 36.8 C 110 H 12 156/84 H 97 Supervising Physician Co-Signing Physician Notes Attending addendum: I have physically seen this patient, have supervised the medical residents activities, and agree with the H&P unless as otherwise noted. Assessment and Plan: Acute on chronic HFpEF/hypervolemia with lower extremity edema- 10+ kilogram weight gain over the past month The patient will be admitted to telemetry for serial cardiac enzymes, serial EKG's, cardiac rhythm monitoring and a 2-D echocardiogram with Dopplers. Received Lasix 40 mg IV in the ED Continue Lasix 40 mg IV every morning Follow renal profile and magnesium levels ASCVD- Celiac artery aneurysm Medical optimization as noted including lipid-lowering medication Venous stasis dermatitis- Compression stockings, leg elevation as noted Will improve with diuresis Physical therapy consult as noted Remaining orders and notations as noted Resident Activity Tracking Resident Involvement: Resident Care Provided Care Provided: Adult Hospital Medicine
[2022-03-13] MEDS ORDERED: cefTRIAXone SODIUM 2,000 MG/70 ML BAG IV STA (20:46)
[2022-03-13 22:08] LABS: INR 1.1 (0.9-1.1); Prothrombin Time 11.3 Seconds (9.0-12.0)
[2022-03-14 04:36] LABS: Basophils # (auto) 0.02 K/uL (0-0.2); Basophils % (auto) 0.3 %; Eosinophils # (auto) 0.09 K/uL (0-0.50); Eosinophils % (auto) 1.4 %; Hematocrit (blood only) 31.5 % (42.0-52.0); Hemoglobin 10.2 g/dl (14.0-18.0); Immature Granulocytes # (auto) 0.02 K/uL (0.01-0.20); Immature Granulocytes % (auto) 0.3 %; Lymphocytes # (auto) 1.35 K/uL (1.2-3.4); Lymphocytes % (auto) 21.4 %; Mean Corpuscular Hemoglobin 34.6 pg (25.0-34.0); Mean Corpuscular Hgb Conc 32.4 g/dL (32.0-36.0); Mean Corpuscular Volume 106.8 fL (80.0-100.0); Monocytes # (auto) 0.76 K/uL (0.11-0.59); Monocytes % (auto) 12.1 %; Neutrophils # (auto) 4.06 K/uL (1.40-6.50); Neutrophils % (auto) 64.5 %; Platelet Count 287 K/uL (130-400); RDW Coefficient of Variation 13.4 % (11.5-14.5); RDW Standard Deviation 52.9 fL (36.4-46.3); Red Blood Count 2.95 M/uL (4.70-6.10)
[2022-03-14 04:58] LABS: Albumin Globulin Ratio 0.7 (0.9-2); Albumin Level 2.6 gm/dl (3.4-5.0); BUN Creatinine Ratio 16.9 (10-20); Bilirubin,Total 1.1 mg/dl (0.2-1.0); Calcium 8.6 mg/dl (8.5-10.1); Chol HDL Ratio 3.4 (0-5); Creatinine Clr Calc Pharmacy 81.8 ml/min; Est GFR (Non-African American) 86.3 ml/min; Globulin 3.5 gm/dl (2.5-4.0); Potassium 3.6 mmol/L (3.5-5.1); Total Protein 6.1 gm/dl (6.0-8.3)
[2022-03-14 05:16] LABS: Ferritin 1035.5 ng/ml (8-388)
--- NOTE | 2022-03-14 07:24 | XRay Report ---
XR chest 1V portable HISTORY: 77 years-old Male acute HFpEF acute shortness of breath COMPARISON: Chest radiograph 05/26/2021 TECHNIQUE: AP view of the chest FINDINGS: Cardiomediastinal and hilar silhouettes are within normal limits. Unchanged right hemidiaphragmatic e levation. Mild linear subsegmental atelectasis versus scarring of the left lung base. No pneumothorax , large pleural effusion or overt pulmonary edema. Degenerative changes of the shoulders and spine. IMPRESSION: No acute process. ACT 112: Negative or not required by law. The above report was generated using voice recognition software. It may contain grammatical, syntax o r spelling errors. Electronically signed by: Kirt Andersen M.D. 03/14/2022 7:22 AM
[2022-03-14] MEDS: ENOXAPARIN INJ 40 MG/0.4 ML SYR SQ SCH (08:53)
[2022-03-14] MEDS: FUROSEMIDE 40 MG/4 ML VIAL IV SCH (08:53)
--- NOTE | 2022-03-14 10:22 | XCELERA ---
[id number]
[2022-03-14 10:25] LABS: Estimated Average Glucose 68 mg/dl; Hemoglobin A1C > 4.0 % (4.5-5.6)
[2022-03-14] MEDS: FOLIC ACID 1 MG TAB PO SCH (12:56)
--- NOTE | 2022-03-14 15:25 | Electrocardiogram Report ---
Test Reason : Blood Pressure : / mmHG Vent. Rate : 102 BPM Atrial Rate : 102 BPM P-R Int : 176 ms QRS Dur : 076 ms QT Int : 364 ms P-R-T Axes : 045 -10 006 degrees QTc Int : 474 ms Poor data quality, interpretation may be adversely affected Sinus tachycardia Low voltage QRS Poor R wave progression, consider anterior ID vs. lead placement vs. LVH Abnormal ECG When compared with ECG of 13-JAN-2022 11:08, Premature ventricular complexes are no longer Present Serial changes of Anterior infarct Present Confirmed by Delonte Smith ([id number]) on 03/14/2022 3:25:20 PM Referred By: Chong Reyes Confirmed By:Delonte Smith
--- NOTE | 2022-03-14 16:13 | Hospitalist Progress Note ---
Date of Service March 14, 2022 Assessment & Plan (1) Localized swelling of both lower legs: Plan: 10+ Kg weight increase over the past 4-6 weeks (dry weight 72kg 02/02) weight on admission 83.9kg +2 pitting edema bilateral lower legs CXR - No acute process BNP - elevated at 172 Troponin 7.9 Reviewed CBC, BMP, LFTs, PT/INR Continue Lasix 40mg IV Continue accurate Is and Os and daily weights Low sodium (2gm) and fluid restricted (2000ml) diet Long discussion with patient regarding healthier diet choices and certain high sodium foods to try and avoid (2) Alcohol use disorder in remission: Plan: Last image of the liver with hepatic steatosis no evidence of cirrhosis (never had ascites) Last ETOH use per patient was 5 months ago LFTs normal, INR 1.1, Platelets - 287 (3) Folate deficiency: Plan: Folate low at 3.59 Start folic acid 1mg daily Plan Full code Lovenox 40mg SQ Folic acid 1mg daily Continue to diurese with IV Lasix Monitor labs PT/OT and case management (patient's daughter is asking about care going forward) Admission and Anticipated Discharge Date Admission Date: March 13, 2022 Subjective Patient is awake sitting up in bed. He states that he had increase in his lower extremity swelling over the past 4-6 weeks and yesterday went to his PCP office for this complaint and was told to go to the ER. He denies any chest pain, shortness of breath, dyspnea, abdominal pain or urinary symptoms. He denies ever having swelling this bad in his extremities before. He denies ever having fluid in his abdomen and denies his abdomen increasing in size. He had a previous history of alcohol abuse but stopped 5 months ago. Review of Systems Review of Systems: All other ROS negative unless stated above. Constitutional: + fatigue and + weight gain; no fever, no chills, no anorexia and no increased appetite Respiratory: no cough, no chest congestion, no dyspnea and no hemoptysis Cardiovascular: + edema; no chest pain, no dyspnea, no syncope, no calf pain and no claudication Gastrointestinal: no abdominal pain, no nausea and no vomiting Genitourinary: no dysuria, no difficulty urinating or no urinary frequency Musculoskeletal: + swelling Integumentary: no rash, no lesions and no new lesions Physical Exam Constitutional: average body habitus and + disheveled Neck: trachea midline, no thyromegaly Respiratory: normal respiratory effort, lungs clear to auscultation Cardiovascular: Rate/Rhythm: regular rate, regular rhythm and + tachycardic Extremities: + edema; no calf tenderness lower extremities with +2 pitting edema bilaterally No calf tenderness, no lesions, skin mildly red bilaterally Gastrointestinal (Abdomen): normal bowel sounds, soft, nontender, no hepatosplenomegaly Neurologic: PERRL, EOMI, accommodation nl, no face palsy, no dysarthria Psychiatric: A+Ox3, euthymic affect Results & Data Results & Data ([facility]) Vital Signs (Past 12 Hours) Vital Signs Temp Pulse Resp BP BP Pulse Ox O2 Del Method 03/14/22 15:07 36.9 C 101 H 20 121/76 91 Room Air 03/14/22 11:58 100 H 18 121/80 95 Room Air 03/14/22 08:09 36.6 C 103 H 20 127/83 94 Room Air 03/14/22 04:58 89 15 110/68 99 Room Air Laboratory Results Abnormal lab results 03/13/22 03/13/22 03/13/22 Range/Units 19:16 19:16 21:45 RBC 3.27 L (4.70-6.10) M/uL Hgb 11.3 L (14.0-18.0) g/dl Hct 34.9 L (42.0-52.0) % MCV 106.7 H (80.0-100.0) fL MCH 34.6 H (25.0-34.0) pg RDW Std Deviation 52.8 H (36.4-46.3) fL MPV 9.1 L (9.4-12.4) fL Carver # (Auto) 0.72 H (0.11-0.59) K/uL Hemoglobin A1c (4.5-5.6) % Calcium 8.4 L (8.5-10.1) mg/dl Ferritin (8-388) ng/ml Total Bilirubin (0.2-1.0) mg/dl B-Natriuretic Peptide 172 H (0-100) pg/ml Albumin 2.9 L (3.4-5.0) gm/dl Albumin/Globulin Ratio 0.8 L (0.9-2) Lipase 96 H (11-82) U/L Folate (>5.38) ng/ml 03/14/22 03/14/22 03/14/22 Range/Units 04:21 04:21 04:21 RBC 2.95 L (4.70-6.10) M/uL Hgb 10.2 L (14.0-18.0) g/dl Hct 31.5 L (42.0-52.0) % MCV 106.8 H (80.0-100.0) fL MCH 34.6 H (25.0-34.0) pg RDW Std Deviation 52.9 H (36.4-46.3) fL MPV 9.0 L (9.4-12.4) fL Carver # (Auto) 0.76 H (0.11-0.59) K/uL Hemoglobin A1c > 4.0 L (4.5-5.6) % Calcium (8.5-10.1) mg/dl Ferritin 1035.5 H (8-388) ng/ml Total Bilirubin 1.1 H (0.2-1.0) mg/dl B-Natriuretic Peptide (0-100) pg/ml Albumin 2.6 L (3.4-5.0) gm/dl Albumin/Globulin Ratio 0.7 L (0.9-2) Lipase (11-82) U/L Folate (>5.38) ng/ml 03/14/22 Range/Units 04:21 RBC (4.70-6.10) M/uL Hgb (14.0-18.0) g/dl Hct (42.0-52.0) % MCV (80.0-100.0) fL MCH (25.0-34.0) pg RDW Std Deviation (36.4-46.3) fL MPV (9.4-12.4) fL Carver # (Auto) (0.11-0.59) K/uL Hemoglobin A1c (4.5-5.6) % Calcium (8.5-10.1) mg/dl Ferritin (8-388) ng/ml Total Bilirubin (0.2-1.0) mg/dl B-Natriuretic Peptide (0-100) pg/ml Albumin (3.4-5.0) gm/dl Albumin/Globulin Ratio (0.9-2) Lipase (11-82) U/L Folate 3.59 L (>5.38) ng/ml Diagnostic Findings Chest X-Ray 03/13/22 21:11 XR chest 1V portable HISTORY: 77 years-old Male acute HFpEF acute shortness of breath COMPARISON: Chest radiograph 05/26/2021 TECHNIQUE: AP view of the chest FINDINGS: Cardiomediastinal and hilar silhouettes are within normal limits. Unchanged right hemidiaphragmatic elevation. Mild linear subsegmental atelectasis versus scarring of the left lung base. No pneumothorax, large pleural effusion or overt pulmonary edema. Degenerative changes of the shoulders and spine. IMPRESSION: No acute process. ACT 112: Negative or not required by law. The above report was generated using voice recognition software. It may contain grammatical, syntax or spelling errors. Electronically signed by: Kirt Andersen M.D. 03/14/2022 7:22 AM PG Care Time/CCT Total # of Minutes Spent Total Time Spent with Patient: Total time spent is greater than 50% in coordination of care (as documented) at patient's floor/unit and/or counseling patient: Coding Level of Care Code 98272 SUB INP/OBS CARE 2/35MIN Diagnoses Localized swelling of both lower legs R22.43 Alcohol use disorder in remission F10.91 Folate deficiency E53.8
--- NOTE | 2022-03-15 04:01 | Billing Data ---
Date of Service March 15, 2022 Coding Level of Care Code 33454 INT INP/OBS CARE
[2022-03-15 06:55] LABS: Hematocrit (blood only) 27.7 % (42.0-52.0); Hemoglobin 9.2 g/dl (14.0-18.0); Mean Corpuscular Hemoglobin 34.5 pg (25.0-34.0); Mean Corpuscular Hgb Conc 33.2 g/dL (32.0-36.0); Mean Corpuscular Volume 103.7 fL (80.0-100.0); Mean Platelet Volume 9.1 fL (9.4-12.4); Platelet Count 275 K/uL (130-400); RDW Coefficient of Variation 13.2 % (11.5-14.5); RDW Standard Deviation 49.4 fL (36.4-46.3); Red Blood Count 2.67 M/uL (4.70-6.10); White Blood Count 5.37 K/ul (4.8-10.8)
[2022-03-15 07:28] LABS: BUN Creatinine Ratio 14.3 (10-20); Calcium 8.3 mg/dl (8.5-10.1); Est GFR (African American) 96.5 ml/min; Est GFR (Non-African American) 83.3 ml/min; Potassium 3.4 mmol/L (3.5-5.1)
[2022-03-15] MEDS: FOLIC ACID 1 MG TAB PO SCH (07:59)
[2022-03-15] MEDS: ENOXAPARIN INJ 40 MG/0.4 ML SYR SQ SCH (07:59)
[2022-03-15] MEDS: FUROSEMIDE 40 MG/4 ML VIAL IV SCH (07:59)
[2022-03-15] MEDS ORDERED: POTASSIUM CHLORIDE 10 MEQ TABCR PO STA (16:35)
--- NOTE | 2022-03-15 16:48 | Hospitalist Progress Note ---
Date of Service March 15, 2022 Assessment & Plan (1) Hypervolemia: Plan: 77-year-old male with history of alcohol use disorder, anemia, dyslipidemia, hypertension, anasarca who presented to [facility] for evaluation of LE edema x 4 weeks and +10kg weight gain over the past month, subsequently found to be hypervolemic on exam. His appearance is concerning for acute HFpEF. Hypervolemia, LE Edema - Evidence of 2+ pitting edema in the lower extremities bilaterally - Work-up as follows: AUD history noted - 10kg + weight gain over the past month (admission weight 83.2kg) - 2+ pitting edema in the lower extremities bilaterally - CXR no acute process - BUN, Cr normal; LFTs within normal limits (no e/o acute synthetic dysfunction) and INR 1.1 - CT-A/P from 05/2021 hepatic steatosis but no cirrhotic-related changes - TTE in 05/2021 demonstrated LVEF 65 to 70% without regional wall motion abnormalities, mild LVHhowever, study was technically poor. Repeat echo with no change compared to May - BNP elevated 172, will repeat in AM - Suspect acute HFpEF with added component of dietary indiscretion. He does have reported h/o HTN but is not on any RX (outpatient BPs are normotensive), and also has h/o ASCVD (see below) and bumped troponin during prior hospital stay. No e/o renal dysfunction. His albumin is low, but lower suspicion for progressing liver disease/cirrhosis given prior labs and appearance on CT-A/P in 05/2021. Do not think his lower extremity swelling represents cellulitis - Lasix 40mg IV daily was given x 2 doses - Daily weights, strict I&Os, low Na diet, fluid restriction < 2L - Recommend PSG as outpatient for MIKE work-up - Will set patient up with CHF clinic as outpatient - D/C IV Lasix - Recommend starting Lasix sliding scale and follow up with PCP next week (2) Anemia: Plan: Macrocytic Anemia - Stable, chronic problem B12 low normal Folate low - 3.59 started on Folic acid 1mg daily (3) Folate deficiency: Plan: see above macrocytic anemia (4) Arteriosclerosis of carotid artery: Plan: - History noted, alongside celiac artery aneurysm. - Per outpatient notes, seems that he was supposed to get stress test done in the past but can't find evidence of this - Also per outpatient notes had been on amlodipine 10mg and atorvastatin 10mg last year - Chol 121, LDL 72, HDL 36 and TG 67 - A1C 4.0 - Echo- no change from 05/27/21 EF 65-70%, left ventricular systolic function is normal, no RWMA, mild mitral regurg (5) Venous stasis dermatitis: Plan: - Exam appears to reveal venous stasis dermatitis in setting of progressive and acute LE edema >2 weeks - Fluid restriction, Na restriction - Elevated legs, compression stockings - PT to be consulted- appreciate focusing on LE exercises for fluid return (6) Alcohol use disorder in remission: Plan: - History of AUD per patient last ETOH use was 5 months ago BUT per PCP note last use was 01/13/22, attends AA regularly - Do not suspect he is in acute liver failure resulting in anasarca. Albumin 2.6 noted. - Patient denies ever having ascites or a paracentesis - Last imaging CTAP 06/03 revealed hepatic steatosis - May wish to discuss Naltrexone therapy as outpatient pending patient goals, progress Plan Code: Full Diet: Low Na, fluid restriction < 2L CLAUDIO stockings, elevated legs, ambulation PPX: Lovenox D/C IV Lasix today Repeat labs Possibly start lasix sliding scale and close follow up with PCP Referral to CHF clinic CM speaking with patient's daughter, patient is not agreeable to personal care. He has [facility] set up and could increase there services. Dispo: [facility] Admission and Anticipated Discharge Date Admission Date: March 13, 2022 Subjective Patient is awake sitting up in bed. He had a previous history of alcohol abuse but patient tells me that he stopped 5 months ago BUT per primary care note his last use was in January 13, 2022. Patient is down 5.5 kg since admission Review of Systems Review of Systems: All other ROS negative unless stated above. Constitutional: + fatigue and + weight gain; no fever, no chills, no anorexia and no increased appetite Respiratory: no cough, no chest congestion, no dyspnea and no hemoptysis Cardiovascular: + edema; no chest pain, no dyspnea, no syncope, no calf pain and no claudication Gastrointestinal: no abdominal pain, no nausea and no vomiting Genitourinary: no dysuria, no difficulty urinating or no urinary frequency Musculoskeletal: + swelling Integumentary: no rash, no lesions and no new lesions Physical Exam Constitutional: average body habitus and + disheveled Neck: trachea midline, no thyromegaly Respiratory: normal respiratory effort, lungs clear to auscultation Cardiovascular: Rate/Rhythm: regular rate, regular rhythm and + tachycardic Extremities: + edema; no calf tenderness Gastrointestinal (Abdomen): normal bowel sounds, soft, nontender, no hepatosplenomegaly Neurologic: PERRL, EOMI, accommodation nl, no face palsy, no dysarthria Psychiatric: A+Ox3, euthymic affect Results & Data Results & Data ([facility]) Vital Signs (Past 12 Hours) Vital Signs Temp Pulse Pulse Resp BP Pulse Ox O2 Del Method 03/15/22 16:27 37.1 C 96 H 16 114/76 94 Room Air 03/15/22 15:32 93 H 03/15/22 08:03 36.7 C 68 16 122/79 96 Room Air 03/15/22 07:10 89 Laboratory Results Abnormal lab results 03/15/22 03/15/22 Range/Units 06:12 06:12 RBC 2.67 L (4.70-6.10) M/uL Hgb 9.2 L (14.0-18.0) g/dl Hct 27.7 L (42.0-52.0) % MCV 103.7 H (80.0-100.0) fL MCH 34.5 H (25.0-34.0) pg RDW Std Deviation 49.4 H (36.4-46.3) fL MPV 9.1 L (9.4-12.4) fL Potassium 3.4 L (3.5-5.1) mmol/L Calcium 8.3 L (8.5-10.1) mg/dl PG Care Time/CCT Total # of Minutes Spent Total Time Spent with Patient: Total time spent is greater than 50% in coordination of care (as documented) at patient's floor/unit and/or counseling patient: Coding Level of Care Code 86232 SUB INP/OBS CARE 2/35MIN Diagnoses Hypervolemia E87.70 Anemia D52.9 Anemia type: folate deficiency Folate deficiency anemia type: unspecified folate deficiency Folate deficiency E53.8 Arteriosclerosis of carotid artery I65.29 Venous stasis dermatitis I87.2 Alcohol use disorder in remission F10.91 (1) Anemia Anemia type: folate deficiency Folate deficiency anemia type: unspecified folate deficiency Qualified Code(s): D52.9 - Folate deficiency anemia, unspecified
[2022-03-16 06:11] LABS: Hematocrit (blood only) 28.2 % (42.0-52.0); Hemoglobin 9.4 g/dl (14.0-18.0); Mean Corpuscular Hemoglobin 34.8 pg (25.0-34.0); Mean Corpuscular Hgb Conc 33.3 g/dL (32.0-36.0); Mean Corpuscular Volume 104.4 fL (80.0-100.0); Platelet Count 257 K/uL (130-400); RDW Coefficient of Variation 13.2 % (11.5-14.5); RDW Standard Deviation 50.2 fL (36.4-46.3); White Blood Count 4.88 K/ul (4.8-10.8)
[2022-03-16 06:28] LABS: Calcium 8.2 mg/dl (8.5-10.1); Creatinine Clr Calc Pharmacy 72.4 ml/min; Est GFR (African American) 98.5 ml/min; Potassium 3.5 mmol/L (3.5-5.1)
[2022-03-16] MEDS: FOLIC ACID 1 MG TAB PO SCH (08:12)
[2022-03-16] MEDS: ENOXAPARIN INJ 40 MG/0.4 ML SYR SQ SCH (08:12)
--- NOTE | 2022-03-16 13:22 | Discharge Summary ---
Date of Service March 16, 2022 Admission HPI Per Admitting Provider 77-year-old male with history of alcohol use disorder, anemia, dyslipidemia, hypertension, anasarca who presented to [facility] for evaluation of LE edema x 2 weeks. He says it has been harder to get his shoes on. He went to his PCP today who recommended coming to the hospital for further evaluation. He denies ZAMAN, SOB, PND, orthopnea, CP, palpitations. Appetite has been good. No n/v/d. Diet - can+ of soup q.o.d. with salty potatoes and frequent meats, salad dressings. Has h/o AUD. Sober x 5 months. Attends AA meetings. No naltrexone ongoing. Denies tobacco or recreational drug use. Last TTE in 05/2021 demonstrated LVEF 65 to 70% without regional wall motion abnormalities, mild LVHhowever, study was technically poor. No longer on Norvasc x 1 year. In the ED, patient was found to have an admission weight of 83.9 kg from 72.4 on 01/2022. He was tachycardic to 110 with blood pressure 150/100. Admission labs revealed chronic macrocytic anemia with hemoglobin 11.3 and MCV 107, BUN 13/creatinine 0.7, lipase 96. He was given Lasix 40 mg IV. Principal Diagnosis 1. HFpEF 2. Folate Deficiency 3. H/o alcohol use disorder Discharge Exam GENERAL: 77 yo WD/WN WM. NAD. LUNGS: Clear to auscultation bilaterally. CARDIOVASCULAR: Regular rate and rhythm. ABDOMEN: Soft, non-tender and non-distended. BS normoactive x 4 quad. EXTREMITIES: Trace to 1+ edema. Chronic stasis dermatitis. Discharge Data Allergies Allergy/AdvReac Type Severity Reaction Status Date / Time No Known Allergies Allergy Verified 03/13/22 20:43 Consultations 03/13/22 20:31 ED Decision to Admit Stat Ordered Studies Chest X-Ray 03/13/22 21:11 XR chest 1V portable HISTORY: 77 years-old Male acute HFpEF acute shortness of breath COMPARISON: Chest radiograph 05/26/2021 TECHNIQUE: AP view of the chest FINDINGS: Cardiomediastinal and hilar silhouettes are within normal limits. Unchanged right hemidiaphragmatic elevation. Mild linear subsegmental atelectasis versus scarring of the left lung base. No pneumothorax, large pleural effusion or overt pulmonary edema. Degenerative changes of the shoulders and spine. IMPRESSION: No acute process. ACT 112: Negative or not required by law. The above report was generated using voice recognition software. It may contain grammatical, syntax or spelling errors. Electronically signed by: Kirt Andersen M.D. 03/14/2022 7:22 AM Hospital Course (1) Hypervolemia: 77-year-old male with history of alcohol use disorder, anemia, dyslipidemia, hypertension, anasarca who presented to [facility] for evaluation of LE edema x 4 weeks and +10kg weight gain over the past month, subsequently found to be hypervolemic on exam. His appearance is concerning for acute HFpEF. Hypervolemia, LE Edema - Evidence of 2+ pitting edema in the lower extremities bilaterally - 10kg + weight gain over the past month (admission weight 83.2kg) - CXR no acute process - BUN, Cr normal; LFTs within normal limits (no e/o acute synthetic dysfunction) and INR 1.1 - CT-A/P from 05/2021 hepatic steatosis but no cirrhotic-related changes - TTE in 05/2021 demonstrated LVEF 65 to 70% without regional wall motion abn ormalities, mild LVHhowever, study was technically poor. Repeat echo with no change compared to May - BNP mildly elevated 172 - Suspect acute HFpEF with added component of dietary indiscretion and was treated for such. He does have reported h/o HTN but is not on any RX (outpatient BPs are normotensive), and also has h/o ASCVD (see below) and bumped troponin during prior hospital stay. No e/o renal dysfunction. His albumin is low, but lower suspicion for progressing liver disease/cirrhosis given prior labs and appearance on CT-A/P in 05/2021. Do not think his lower extremity swelling represents cellulitis - Lasix 40mg IV daily was given x 2 doses - Daily weights, strict I&Os, low Na diet, fluid restriction < 2L - Recommend sleep study as outpatient for MIKE work-up, defer to PCP to arrange this - Will dc home on sliding scale of Lasix - Referral to Heart Failure Clinic made, has an appt to see Billie Garsia PA-C on 03/23 (2) Anemia: Macrocytic Anemia - Stable, chronic problem - B12 low normal - Folate low - 3.59 started on Folic acid 1mg daily, rx provided upon dc (3) Arteriosclerosis of carotid artery: - History noted, alongside celiac artery aneurysm. - Per outpatient notes, seems that he was supposed to get stress test done in the past but can't find evidence of this - Also per outpatient notes had been on amlodipine 10mg and atorvastatin 10mg last year - Chol 121, LDL 72, HDL 36 and TG 67 - A1C 4.0 - Echo- no change from 05/27/21 - EF 65-70%, left ventricular systolic function is normal, no RWMA, mild mitral regurg (4) Venous stasis dermatitis: - Exam appears to reveal venous stasis dermatitis in setting of progressive and acute LE edema >2 weeks - Fluid restriction, Na restriction - Elevated legs, compression stockings - PT to be consulted- appreciate focusing on LE exercises for fluid return - Will continue HH PT upon d/c (5) Alcohol use disorder in remission: - History of AUD per patient last ETOH use was 5 months ago BUT per PCP note last use was 01/13/22, attends AA regularly - Do not suspect he is in acute liver failure resulting in anasarca. Albumin 2.6 noted. - Patient denies ever having ascites or a paracentesis - Last imaging CTAP 06/03 revealed hepatic steatosis - May wish to discuss Naltrexone therapy as outpatient pending patient goals, de ashish to PCP - Would advise starting a multivitamin as an outpatient Plan As above. Home health referral for SN, PT. Will be seen on 03/21 at his home. Pt declined personal care, wished to return home. Per CM d/w daughter, they will likely increase private caregiver services. Above plan of care has been d/w Dr. Rice who has also seen and evaluated this patient prior to discharge and agrees with aforementioned. Total Time Total Time Spent Total Time Spent (In Minutes): >30 minutes Discharge Plan Discharge Items Patient Disposition: Home - Home Health Services Reason For Visit: LE EDEMA Discharge Diagnosis: lower extremity swelling due to heart failure Activity: Resume your previous activity Non-emergency contact: Primary Care Provider and Specialist Call non-emergency contact if: you have any medication questions and your symptoms worsen Follow-up/Referrals: Billie Garsia PA-C [Physician Patient Accounts Specialist] - 03/23/22 10:30 am Chong Reyes, DO [Primary Care Provider] - 03/21/22 11:30 am Diet: Heart Healthy and Low Sodium (2gm) Addtl Attending Provider Instructions: You were hospitalized due to fluid/volume overload in your legs which was due to heart failure. You were treated with a medication called Lasix which helps pull excess fluid off of the body. At this time, your swelling has improved. You will be discharged home with Lasix and Potassium which you should only take NEEDED. You will need to weigh yourself every day in the morning before eating or drinking. You will take the Lasix in the event of the followin. You note an INCREASE in your weight of 3 pounds in a 24 hour period. Take 1 tablet (20mg) along with the Potassium pill. Continue taking daily until your weight returns to normal. 2. If you note an INCREASE in your weight of 5 pounds over a period of 7 days, you need to take 2 Lasix pills (40mg) along with the Potassium pill and CALL Billie Garsia PA-C in the Heart Failure Clinic to notify her of the weight gain. You are also being prescribed Folic Acid. Take every day as directed. Lastly, it is recommended that you start taking a multivitamin. This can be purchased at your pharmacy over the counter. You have been scheduled to see Billie Garsia PA-C in the Heart Failure clinic for follow up on 03/23/22 at 10:30am. Please keep this appointment, and if you cannot make it, please contact the office to reschedule. It is advised that you follow up with your primary care provider within 1 week of discharge. Recommend discussing arranging for sleep study due to concern for sleep apnea. You have been set up for Home health services that will follow up with you in your home on Sunday03/21/22. If you have any questions or concerns following your discharge, please feel free to contact the nonemergency number listed on your discharge paperwork. In the event of a medical emergency, call 911. Pending Studies at Discharge: No Stand-Alone Forms: My [place], Smoking Cessation Medications and DC Order Prescriptions: New folic acid 1 mg Tablet 1 mg PO QAM Qty: 30 0RF furosemide [Lasix] 20 mg tablet 20 mg PO DAILY PRN (Reason: edema) Qty: 30 0RF Rx Instructions: take 1 tablet for weight gain of 3 lbs in 24 hours. Take 2 tablets (40mg) for weight gain of 5 lbs in 7 days. potassium chloride 10 mEq tablet extended release 10 meq PO DAILY Qty: 30 0RF Rx Instructions: take with Lasix PRN Discharge Orders: Discharge Order- CHF (Routine); Ordered 03/16/22 Ordered By: Carol Giraldo Admission Data Admit Date/Time: 03/13/22 20:53 Attending Provider: Raúl Rice Admit Provider: Facundo Turner Primary Care Provider: Chong Reyes Other Providers: Gianni Solitario ; Ramona,Home Care Coding Level of Care Code HOSP INP/OBS DISCH >30 MIN Diagnoses Hypervolemia E87.70 Anemia D52.9 Anemia type: folate deficiency Folate deficiency anemia type: unspecified folate deficiency Arteriosclerosis of carotid artery I65.29 Venous stasis dermatitis I87.2 Alcohol use disorder in remission F10.91
== END 2022-03-16 14:35 | disposition home health service (06) | DRG 291 ==
LOC: ED 18:21 → EDINP 20:53 → SUATTDRO 20:53 → 2W 23:43

== ENCOUNTER 2022-04-28 16:45 | Inpatient (IN) ==
[2022-04-28] MEDS ORDERED: MULTI-VITAMIN INFUSION 10 ML, THIAMINE HCL 100 MG, FOLIC ACID 1 MG in SODIUM CHLORIDE 0... IV ONE (17:04)
[2022-04-28] MEDS ORDERED: SODIUM CHLORIDE 0.9% 1000ML 1,000 ML IV SCH (17:15)
--- NOTE | 2022-04-28 17:24 | Emergency Department Note ---
Impression & Plan Altered mental status, CHI (closed head injury), Hypokalemia, Elevated troponin, BRITTA (acute kidney injury), Abnormal LFTs, Dehydration ED Provider Note ED Provider Note NAME: ELIZABETH OROZCO AGE:77 SEX: Male : 1945 ARRIVES VIA: EMS INFORMANT: Patient, EMS, caregiver ED PROVIDER(s): Marcella Hurst DO CHIEF COMPLAINT: Confusion, fall, alcohol abuse HPI: This is a 77-year-old male who presents emergency department via EMS due to concern by caregiver for worsening confusion. Patient admits to ongoing alcohol use and has been here multiple times with a similar presentation. Patient states he also fell this morning and did strike his head. He is uncertain if he lost consciousness. He denies any pain related to the fall. Patient states he has not otherwise been eating or drinking. Patient does have a history of significant alcohol abuse. Patient states he drank half a bottle of tequila today. EMS reported caregiver who comes to check on him and during the week felt he was getting more confused and after he reported the fall, contacted 911 for additional evaluation. He denies any current neck or back pain, chest pain, abdominal pain. He states his legs are always swollen. PAST MEDICAL HISTORY:See Below PAST SURGICAL HISTORY:See Below FAMILY HISTORY:See Below SOCIAL HISTORY:See Below HOME MEDICATIONS:See Below ALLERGIES:See Below VITALS:See Below PHYSICAL EXAMINATION: GENERAL: alert, unwell appearing, well nourished, no distress, non-toxic, evidence of poor hygiene, dried bits of emesis noted in his marinelli EYE EXAM: normal conjunctiva, PERRL and EOM's grossly intact OROPHARYNX: no exudate, no erythema, lips, buccal mucosa, and tongue normal and mucous membranes are dry NECK: supple, no nuchal rigidity, no adenopathy, non-tender LUNGS: Clear to auscultation. Normal chest wall mechanics, no w/r/r HEART: no murmurs, S1 normal and S2 normal ABDOMEN: abdomen soft, non-tender, normo-active bowel sounds, no masses, no rebound or guarding. BACK: Back is symmetrical on inspection and there is no deformity, no midline tenderness, no CVA tenderness. SKIN: no rashes, petechiae, orbruising, diffuse dermatitis noted UPPER EXTREMITIES: upper extremities are grossly normal. FROM, nml pulses b/l. LOWER EXTREMITIES: 3+ b/l pitting edema. FROM, nml pulses b/l. Superficial abrasion noted to right lower extremity pretibial region with mild bleeding and surrounding ecchymosis. NEURO EXAM: Normal sensorium, cranial nerves II-XII grossly intact, normal speech, no facial droop,nogross weakness of arms, no gross weakness of legs. Gross sensation intact. No ataxia. Vital Signs: reviewed and remarkable Differential Diagnosis: Differential diagnoses includes but is not limited to toxic, metabolic, infectio us, traumatic, cardiac, neurologic, hematologic, psychiatric and inflammatory etiologies. MEDICAL DECISION MAKING: This is a 77-year-old male presents emergency department via EMS following a fall after a caregiver checked on him contacted 911. Patient with a history of alcohol abuse and prior falls. Patient denies eating and drinking normally in recent days, and states he finished half a bottle of tequila today. Labs drawn and sent, IV established, EKG performed and interpreted by me at bedside, patient placed on telemetry, IV fluids started, patient sent for CT imaging to rule out acute traumatic injury. Patient found to have significant acute kidney injury and elevation of his LFTs. Patient did appear clinically dehydrated and IV fluids were continued. Blood pressures were borderline but remained stable. Patient monitored while he was intoxicated based on lab values, he was able to answer questions and continued to sober up appropriately. No ectopy or dysrhythmia noted on telemetry. Patient given cautious IV fluids due to prior history of congestive heart failure, banana bag added, IV Protonix, and IV magnesium added. Patient with mild anemia as well as thrombocytopenia likely secondary to chronic alcohol abuse. I suspect his inability to care for himself, poor oral intake, and ongoing alcohol abuse likely contributed to the abnormal liver and kidney numbers. UA and UDS pending at time of discussion with hospitalist for additional evaluation and management. No significant hyperglycemia although patient did have an anion gap. I suspect this is secondary to alcohol and dehydration at this time. No evidence of acute traumatic injury on CT imaging. Consultation(s): 2014: Discussed with Dr. Orozco. ER Treatment Provided: See below 1845: Patient denies any pain, repeat abdominal exam unchanged. 1944: Repeat abd exam without tenderness. Diagnostics Interpreted By Me: -ECG: Normal sinus at 96, normal axis, prolonged QT, normal QRS, nonspecific ST/T wave changes, low voltage throughout -Cardiac Monitoring: An order was placed for continuous cardiac monitoring. The monitor shows a rate of 97 with normal sinus rhythm. -Laboratory studies: As stated above and show below. -Imaging studies: xr right tib/fib: no fx or FB Triage Nursing Note Reviewed Prior/Outside Records Reviewed -prior hospital admission reviewed Procedures: [] Critical Care: Critical care of 49 min performed to assess and manage high likelihood of life- threatening BRITTA and liver injury, involving labs and imaging performed with assessment to evaluate altered mental status and fall diagnosis with frequent reassessment. This time includes bedside time, treatment discussions with ольга ent/family/consultants, documentation time and excludes procedure time. Past Med/Surg History Medical History Alcohol use disorder in remission Alcoholism Anemia Arteriosclerosis of carotid artery Celiac artery aneurysm Diverticulosis Dyslipidemia Erectile dysfunction Gait disorder, alcoholic Hypertension Hypomagnesemia Internal hemorrhoids Tubular adenoma of colon Surgical History H/O hernia repair abdominal hernia repair with mesh (2002); hospital in [facility] H/O tooth extraction Family History Mother Dementia age 100 Father Stroke age 88 Grandfather (Maternal) Heart disease Denies family history of Ovarian cancer Prostate cancer Myocardial infarction Breast cancer Lung cancer Pulmonary embolism Cancer Social History Smoking Status: Unknown if ever smoked Tobacco Type: Cigarettes Second Hand Exposure: No; Hx Alcohol Use: Yes Alcohol type: beer and hard liquor Alcohol Intake Frequency: 4 or More x per/Week Hx Substance Use: Yes Preferred Language: [place]de[place] Communication Ability: Effective Visual Impairment: No Limitations Hearing Ability: Normal 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 Beliefs That Will Affect Care: None marital status: Single Current Living Situation: Alone current occupational status: retired current occupation: does consulting work on the side How many Children do You have: 2 Other Information That Helps Us Care for You: Yes (patient needs help at home) Feels Safe at Home: Yes Safety Concerns: Feels Safe At This Time Childhood Exposure to Second-Hand Smoke: No caffeine: Yes Dental Care, Regularly: Yes Physical Activity Frequency: 5-6 Times per Week Seatbelt Use: always Sunscreen Use: Yes Assistive Devices: Cane and Walker Allergies Allergies Allergy/AdvReac Type Severity Reaction Status Date / Time No Known Allergies Allergy Verified 04/28/22 19:22 Home Meds Previous Rx's Medication Instructions Recorded folic acid 1 mg tablet 1 mg PO QAM #30 tabs 03/16/22 furosemide 20 mg tablet (Lasix) 20 mg PO DAILY PRN edema #120 tabs 03/29/22 potassium chloride 20 mEq 20 meq PO DAILY #120 tabs 03/29/22 tablet,extended release magnesium oxide 400 mg PO DAILY #60 tabs 03/30/22 Results & Data (ED) Vital Signs Vital Signs - 24 hr 04/28/22 16:48 04/28/22 17:08 04/28/22 17:30 Temperature 36.9 C Temperature Source Oral Pulse Rate 97 H 87 Pulse Rate [Apical] 99 H Respiratory Rate 16 18 20 Respiratory Effort / Characteristics Non-Labored Spontaneous Non-Labored Spontaneous Respiratory Depth Normal Normal Respiratory Pattern Regular Blood Pressure 100/84 92/77 L Blood Pressure [Left Arm] 112/75 Blood Pressure Mean 89 82 Blood Pressure Mean [Left Arm] 87 Blood Pressure Position Lying Pulse Oximetry 95 99 96 Oxygen Delivery Method Room Air Room Air Room Air Sepsis Recent Fever Within 48 Hours No Sepsis New/Unexplained Change in Mental Status No Sepsis Action Taken by Nursing No Action Required 04/28/22 17:55 04/28/22 19:30 04/28/22 20:12 Temperature Temperature Source Pulse Rate 99 H 92 H 96 H Pulse Rate [Apical] Respiratory Rate 16 16 Respiratory Effort / Characteristics Respiratory Depth Respiratory Pattern Blood Pressure 107/75 93/61 L Blood Pressure [Left Arm] Blood Pressure Mean 85 71 Blood Pressure Mean [Left Arm] Blood Pressure Position Pulse Oximetry 96 95 Oxygen Delivery Method Room Air Room Air Sepsis Recent Fever Within 48 Hours Sepsis New/Unexplained Change in Mental Status Sepsis Action Taken by Nursing Laboratory Data 04/28/22 17:02 04/28/22 17:02 Lab Results 04/28/22 04/28/22 04/28/22 Range/Units 16:51 17:02 17:02 WBC 11.04 H (4.8-10.8) K/ul RBC 3.32 L (4.70-6.10) M/uL Hgb 11.9 L (14.0-18.0) g/dl Hct 34.1 L (42.0-52.0) % MCV 102.7 H (80.0-100.0) fL MCH 35.8 H (25.0-34.0) pg MCHC 34.9 (32.0-36.0) g/dL RDW Std Deviation 70.5 H (36.4-46.3) fL RDW Coeff of Juan 19.9 H (11.5-14.5) % Plt Count 103 L (130-400) K/uL MPV 11.1 (9.4-12.4) fL Immature Gran % (Auto) 0.5 % Neut % (Auto) 85.3 % Lymph % (Auto) 5.9 % [place] % (Auto) 8.1 % Eos % (Auto) 0.1 % Baso % (Auto) 0.1 % Neut # (Auto) 9.42 H (1.40-6.50) K/uL Lymph # (Auto) 0.65 L (1.2-3.4) K/uL [place] # (Auto) 0.89 H (0.11-0.59) K/uL Eos # (Auto) 0.01 (0-0.50) K/uL Baso # (Auto) 0.01 (0-0.2) K/uL Immature Gran # (Auto) 0.06 (0.01-0.20) K/uL PT Cancelled INR Cancelled Sodium (136-145) mmol/L Potassium Chloride (98-107) mmol/L Carbon Dioxide (21-32) mmol/L Anion Gap (3-11) BUN (6-23) mg/dl Creatinine (0.6-1.4) mg/dl Est Cr Clr Drug Dosing ml/min Est GFR ( Amer) ml/min Est GFR (Non-Af Amer) ml/min BUN/Creatinine Ratio (10-20) Glucose (70-99(Fasting)) mg/dl POC Glucose 131 H (70-99) mg/dl Osmolality (280-300) mOsm/kg Calcium (8.5-10.1) mg/dl Magnesium (1.7-2.4) mg/dl Total Bilirubin (0.2-1.0) mg/dl AST ALT (7-52) U/L Alkaline Phosphatase (34-104) U/L Troponin I High Sens (0-20) pg/ml Total Protein (6.0-8.3) gm/dl Albumin (3.4-5.0) gm/dl Globulin (2.5-4.0) gm/dl Albumin/Globulin Ratio (0.9-2) Lipase (11-82) U/L Ethyl Alcohol mg/dL (<10.0) mg/dl 04/28/22 04/28/22 04/28/22 Range/Units 17:02 17:02 17:02 WBC (4.8-10.8) K/ul RBC (4.70-6.10) M/uL Hgb (14.0-18.0) g/dl Hct (42.0-52.0) % MCV (80.0-100.0) fL MCH (25.0-34.0) pg MCHC (32.0-36.0) g/dL RDW Std Deviation (36.4-46.3) fL RDW Coeff of Juan (11.5-14.5) % Plt Count (130-400) K/uL MPV (9.4-12.4) fL Immature Gran % (Auto) % Neut % (Auto) % Lymph % (Auto) % [place] % (Auto) % Eos % (Auto) % Baso % (Auto) % Neut # (Auto) (1.40-6.50) K/uL Lymph # (Auto) (1.2-3.4) K/uL [place] # (Auto) (0.11-0.59) K/uL Eos # (Auto) (0-0.50) K/uL Baso # (Auto) (0-0.2) K/uL Immature Gran # (Auto) (0.01-0.20) K/uL PT INR Sodium 136 (136-145) mmol/L Potassium TNP Chloride 87 L (98-107) mmol/L Carbon Dioxide 16 L (21-32) mmol/L Anion Gap 33 H (3-11) BUN 17 (6-23) mg/dl Creatinine 3.87 H (0.6-1.4) mg/dl Est Cr Clr Drug Dosing 15.0 ml/min Est GFR ( Amer) 16.1 ml/min Est GFR (Non-Af Amer) 13.9 ml/min BUN/Creatinine Ratio 4.4 L (10-20) Glucose 146 H (70-99(Fasting)) mg/dl POC Glucose (70-99) mg/dl Osmolality 338 H (280-300) mOsm/kg Calcium 8.4 L (8.5-10.1) mg/dl Magnesium 1.5 L (1.7-2.4) mg/dl Total Bilirubin 6.8 H (0.2-1.0) mg/dl AST TNP ALT 91 H (7-52) U/L Alkaline Phosphatase 208 H (34-104) U/L Troponin I High Sens 37.5 H (0-20) pg/ml Total Protein 7.7 (6.0-8.3) gm/dl Albumin 2.9 L (3.4-5.0) gm/dl Globulin 4.8 H (2.5-4.0) gm/dl Albumin/Globulin Ratio 0.6 L (0.9-2) Lipase 38 (11-82) U/L Ethyl Alcohol mg/dL 125.1 H (<10.0) mg/dl 04/28/22 04/28/22 Range/Units 18:22 18:22 WBC (4.8-10.8) K/ul RBC (4.70-6.10) M/uL Hgb (14.0-18.0) g/dl Hct (42.0-52.0) % MCV (80.0-100.0) fL MCH (25.0-34.0) pg MCHC (32.0-36.0) g/dL RDW Std Deviation (36.4-46.3) fL RDW Coeff of Juan (11.5-14.5) % Plt Count (130-400) K/uL MPV (9.4-12.4) fL Immature Gran % (Auto) % Neut % (Auto) % Lymph % (Auto) % [place] % (Auto) % Eos % (Auto) % Baso % (Auto) % Neut # (Auto) (1.40-6.50) K/uL Lymph # (Auto) (1.2-3.4) K/uL [place] # (Auto) (0.11-0.59) K/uL Eos # (Auto) (0-0.50) K/uL Baso # (Auto) (0-0.2) K/uL Immature Gran # (Auto) (0.01-0.20) K/uL PT 18.6 H INR 1.8 H Sodium (136-145) mmol/L Potassium 3.1 L Chloride (98-107) mmol/L Carbon Dioxide (21-32) mmol/L Anion Gap (3-11) BUN (6-23) mg/dl Creatinine (0.6-1.4) mg/dl Est Cr Clr Drug Dosing ml/min Est GFR ( Amer) ml/min Est GFR (Non-Af Amer) ml/min BUN/Creatinine Ratio (10-20) Glucose (70-99(Fasting)) mg/dl POC Glucose (70-99) mg/dl Osmolality (280-300) mOsm/kg Calcium (8.5-10.1) mg/dl Magnesium (1.7-2.4) mg/dl Total Bilirubin (0.2-1.0) mg/dl AST 391 H ALT (7-52) U/L Alkaline Phosphatase (34-104) U/L Troponin I High Sens (0-20) pg/ml Total Protein (6.0-8.3) gm/dl Albumin (3.4-5.0) gm/dl Globulin (2.5-4.0) gm/dl Albumin/Globulin Ratio (0.9-2) Lipase (11-82) U/L Ethyl Alcohol mg/dL (<10.0) mg/dl Administered Medications Erythromycin (Erythromycin Op Oint 1 Gm Pkt) 1 appln OPL BID [facility] Stop: 05/09/22 10:59 Last Admin: 04/29/22 12:00 Dose: 1 appln Documented By: KJS Sodium Bicarbonate 150 meq/ (Dextrose) 1,150 mls @ 100 mls/hr IV .[id number] [facility] Stop: 05/29/22 13:59 Last Admin: 04/29/22 14:15 Dose: 100 mls/hr Documented By: KJS Phenylephrine HCl (Phenylephrine/Nss) 25 mg in 250 mls @ 43.794 mls/hr IV .[id number] [facility]; Protocol Stop: 05/29/22 11:14 Last Admin: 04/29/22 15:08 Dose: 1.1 mcg/kg/min, 53.5 mls/hr Documented By: RADHA Co-signed By: KERRY Midodrine (Midodrine Hcl 10 Mg Tab) 10 mg PO TID@0800,1200,1700 ARTURO Stop: 05/29/22 11:59 Last Admin: 04/29/22 12:37 Dose: 10 mg Documented By: RADHA Multivitamins/Minerals (Multi Vit W/Minerals Liquid 15 Ml Udp) 15 ml PO QAM ARTURO Stop: 05/29/22 10:14 Last Admin: 04/29/22 10:49 Dose: 15 ml Documented By: RADHA Discontinued Medications Dextrose (Dextrose 50% 50 Ml Syringe) 50 ml IV NOW STA Stop: 04/29/22 04:51 Last Admin: 04/29/22 05:13 Dose: 50 ml Documented By: RUSS Dextrose (Dextrose 50% 50 Ml Syringe) Confirm Administered Dose 50 ml IV .STK- MED ONE Stop: 04/29/22 05:09 Last Admin: 04/29/22 05:14 Dose: Not Given Documented By: RUSS Dextrose (Dextrose 50% 50 Ml Syringe) Confirm Administered Dose 50 ml IV .STK- MED ONE Stop: 04/29/22 14:33 Last Admin: 04/29/22 14:38 Dose: 25 ml Documented By: RADHA Glucose (Glucose 40% Gel 15 Gm Tube) Confirm Administered Dose 30 gm PO .STK-MED ONE Stop: 04/29/22 13:54 Last Admin: 04/29/22 14:14 Dose: 30 gm Documented By: RADHA Sodium Chloride (Nss 1000ml) 1,000 mls @ 125 mls/hr IV .Q8H ARTURO Stop: 05/28/22 17:14 Last Infusion: 04/29/22 01:57 Dose: 0 mls/hr Documented By: Admin: 04/28/22 17:40 Dose: 125 mls/hr Documented By: BAMBI Multivitamins 10 ml/ Thiamine HCl 100 mg/ Folic Acid 1 mg/Sodium Chloride 1,011.2 mls @ 150 mls/hr IV .[id number] ONE Stop: 04/28/22 23:48 Last Infusion: 04/29/22 00:42 Dose: 0 mls/hr Documented By: Admin: 04/28/22 17:38 Dose: 150 mls/hr Documented By: BAMBI Magnesium Sulfate/Dextrose (Magnesium Sulfate / D5w) 1 gm in 100 mls @ 100 mls/hr IV NOW STA Stop: 04/28/22 19:19 Last Infusion: 04/28/22 21:11 Dose: 0 mls/hr Documented By: Admin: 04/28/22 20:09 Dose: 100 mls/hr Documented By: REA Parenteral Electrolytes (Normosol-R) 1,000 mls @ 125 mls/hr IV .Q8H ARTURO Stop: 05/28/22 20:14 Last Infusion: 04/29/22 11:30 Dose: 0 mls/hr Documented By: Admin: 04/29/22 04:00 Dose: 125 mls/hr Documented By: Infusion: 04/29/22 04:00 Dose: 125 mls/hr Documented By: Admin: 04/28/22 21:13 Dose: 125 mls/hr Documented By: REA Magnesium Sulfate/Dextrose (Magnesium Sulfate / D5w) 1 gm in 100 mls @ 100 mls/hr IV NOW STA Stop: 04/28/22 21:34 Last Infusion: 04/28/22 22:30 Dose: 0 mls/hr Documented By: Admin: 04/28/22 21:32 Dose: 100 mls/hr Documented By: REA Sodium Bicarbonate 150 meq/ (Sterile Water) 1,150 mls @ 60 mls/hr IV .[id number] ARTURO Stop: 05/28/22 20:59 Last Admin: 04/28/22 23:42 Dose: Not Given Documented By: ANNETTA Potassium Chloride (K Jimmy / Wtr) 10 meq in 100 mls @ 100 mls/hr IV ONE ONE Stop: 04/28/22 22:05 Last Infusion: 04/29/22 00:42 Dose: 0 mls/hr Documented By: Admin: 04/28/22 22:17 Dose: 100 mls/hr Documented By: REA Thiamine HCl 100 mg/ Syringe 10 mls @ 2 mls/min IV QAM ARTURO Stop: 05/29/22 08:59 Last Admin: 04/29/22 09:51 Dose: 2 mls/min Documented By: RADHA Folic Acid 1 mg/ Syringe 10 mls @ 5 mls/min IV QAM ARTURO Stop: 05/29/22 08:59 Last Admin: 04/29/22 08:56 Dose: 5 mls/min Documented By: SENDY Phytonadione 5 mg/ Dextrose 50.5 mls @ 101 mls/hr IV 0815 ONE Stop: 04/29/22 08:44 Last Infusion: 04/29/22 09:14 Dose: 0 mls/hr Documented By: Admin: 04/29/22 08:37 Dose: 101 mls/hr Documented By: SENDY Pantoprazole Sodium 40 mg/ (Syringe) 10 mls @ 5 mls/min IV NOW ONE Stop: 04/29/22 08:43 Last Admin: 04/29/22 09:56 Dose: 5 mls/min Documented By: RADHA Albumin Human (Albumin 25% 100 Ml) 25 gm in 100 mls @ 50 mls/hr IV Q2H ARTURO Stop: 04/29/22 14:59 Last Admin: 04/29/22 12:38 Dose: 50 mls/hr Documented By: Infusion: 04/29/22 12:38 Dose: 50 mls/hr Documented By: Admin: 04/29/22 11:19 Dose: 50 mls/hr Documented By: RADHA Phenylephrine HCl (Phenylephrine/Nss) 25 mg in 250 mls @ 24.33 mls/hr IV .[id number] ARTURO; Protocol Stop: 05/29/22 10:44 Last Titration: 04/29/22 11:38 Dose: 0 mcg/kg/min, 0 mls/hr Documented By: RADHA Co-signed By: JOSÉ MIGUEL Admin: 04/29/22 11:38 Dose: 0.5 mcg/kg/min, 24.3 mls/hr Documented By: RADHA Co-signed By: GIA Sodium Bicarbonate 75 meq/ (Dextrose/Sodium Chloride) 1,075 mls @ 75 mls/hr IV .[id number] ARTURO Stop: 05/29/22 10:59 Last Admin: 04/29/22 11:38 Dose: 75 mls/hr Documented By: RADHA Phenylephrine HCl 25 mg/ (Sodium Chloride) 250 mls @ 43.794 mls/hr IV .Q5H43M ARTURO; Protocol Stop: 05/29/22 10:44 Last Titration: 04/29/22 11:25 Dose: 0.9 mcg/kg/min, 43.8 mls/hr Documented By: Titration: 04/29/22 11:20 Dose: 0.7 mcg/kg/min, 34.1 mls/hr Documented By: Admin: 04/29/22 11:15 Dose: 0.5 mcg/kg/min, 24.3 mls/hr Documented By: RADHA Co-signed By: GÓMEZ Sodium Bicarbonate (Sodium Bicarb 8.4% Inj 50 Meq/50 Ml Syr) 50 meq IV NOW STA Stop: 04/29/22 10:33 Last Admin: 04/29/22 10:49 Dose: 50 meq Documented By: RADHA Imaging Data Radiologist's Impression: Abdomen/Pelvis CT 04/28/22 17:04 CT chest diagnostic wo con, CT abd pelvis wo con CT DOSE: HISTORY: trauma, altered mental status. Fall. Right-sided rib and abdominal pain. TECHNIQUE: Multiaxial CT images of the chest , abdomen, pelvis were performed without contrast. A dose lowering technique was utilized adhering to the principles of ALARA. COMPARISON: Chest abdomen pelvis CT 05/26/2021. FINDINGS: Chest CT: Small amount of mucoid material within the proximal trachea. Otherwis e, the central airways are patent. There is a trace pleural effusions. No left pleural effusion. No pneumothorax. Motion artifact results in suboptimal evaluation. A few left basilar small linear densities favor subsegmental atelectasis. Otherwise, left lung is clear. There is marked elevation the right hemidiaphragm. This has progressed in the interval. There is consolidation within the base the right lower lobe which favors compressive atelectasis from the elevated right hemidiaphragm. A superimposed pneumonia would be difficult to exclude by imaging. No acute fractures identified within the chest. Evaluation for mediastinal injury is suboptimal due to the lack of intravenous contrast. However, there is no mediastinal hematoma or lymphadenopathy. No pericardial effusion. The heart is borderline enlarged. Mild calcified plaque within the normal caliber thoracic aorta. Mild circumferential thickening of the mid to distal esophagus is noted. Coronary artery calcifications are noted. Abdomen/pelvis CT: No pneumoperitoneum. No pneumatosis. No acute fractures id entified. Severe hepatic steatosis is again noted. Evaluation of the solid abdominal viscera is suboptimal due to the lack of intravenous contrast. Moderate amount of fluid within the upper quadrant surrounding the liver and spleen. This is new from the prior study. There is also fluid tracking along the paracolic gutters and within the deep pelvis. Some of this is low density. However, some of the the perihepatic fluid appears to represent intermediate density and could represent hemoperitoneum. However, this relative increased density within this fluid could be due to streak artifact from the patient's overlapping arms. The exact etiology is not clearly identified on this study but could be due to a hepatic laceration versus the artifact as described above. A 1.5 cm hyperdense focus within the right hepatic lobe which previously measured 1.0 cm is indeterminate. There is an additional 1.8 cm hypodense focus within the right hepatic dome on image 72. The unenhanced spleen appears unremarkable. The unenhanced pancreas, gallbladder, and kidneys appear unremarkable. 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 No retroperitoneal hematoma lymphadenopathy. Normal caliber abdominal aorta. The bladder is unremarkable. The prostate remains mildly enlarged. There is a left inguinal hernia containing a short segment of the vessel sigmoid colon, unchanged. Colonic diverticulosis. No evidence for acute diverticulitis. [id number] bowel wall thickening within the proximal colon. There is also multiple thickened loops of small bowel within the abdomen. This is new from the prior study and is consistent with a nonspecific enterocolitis. This could be due to the patient's diffuse edematous state. Moderate body wall edema. Suboptimal evaluation of the abdominal struct ures due to the streak artifact from the patient's overlapping arms. IMPRESSION: 1. Severe hepatic steatosis is again noted. Evaluation of the solid abdominal viscera is suboptimal due to the lack of intravenous contrast. Moderate amount of fluid within the upper quadrants surrounding the liver and spleen. This is new from the prior study. There is also fluid tracking along the paracolic gutters and within the deep pelvis. Some of this is low density. However, some of the the perihepatic fluid appears to represent intermediate density and could represent hemoperitoneum. However, this relative increased density within this fluid could be due to streak artifact from the patient's overlapping arms. The exact etiology is not clearly identified on this study but could be due to an occult hepatic laceration versus the artifact as described above. 2. No acute process within the chest. 3. Chronic elevation the right hemidiaphragm which has progressed. 4. No acute fractures identified. 5. Diffuse body wall edema. 6. Multiple thickened loops of small and large bowel consistent with a nonspecific enterocolitis. This could be due to the patient's diffuse edematous state. 7. Hyperdense right hepatic lobe lesions as described above which are indeterminate. Consider follow-up abdominal MRI in 3-6 months to ensure resolution. 8. Additional findings as described above. ACT 112: Positive. There are findings on this exam that require communication between the performing entity and the patient following Patient Test Result Information Act ([place] Act 112) guidelines. Electronically signed by: Nathaniel Schultz M.D. 04/28/2022 7:[address] 04/28/22 17:[address] DOSE: 2066.38 mGy.cm HISTORY: Fall. trauma TECHNIQUE: Multiaxial CT images of the cervical spine were performed and reformatted in the sagittal and coronal plane without the use of contrast. A dose lowering technique was utilized adhering to the principles of ALARA. COMPARISON: Cervical spine CT 03/28/2022. FINDINGS: No fractures. Advanced degenerative changes again noted throughout the cervical spine with multiple fused vertebral bodies and facets from the C2-C4 levels. There is straightening of the cervical spine. Prevertebral soft tissues and the C1-C2 interval are intact. No pneumothorax. IMPRESSION: No fractures within the cervical spine. ACT 112: Negative or not required by law. Electronically signed by: Nathaniel Schultz M.D. 04/28/2022 7:[address] 04/28/22 17:04 CT chest diagnostic wo con, CT abd pelvis wo con CT DOSE: HISTORY: trauma, altered mental status. Fall. Right-sided rib and abdominal pain. TECHNIQUE: Multiaxial CT images of the chest , abdomen, pelvis were performed without contrast. A dose lowering technique was utilized adhering to the principles of ALARA. COMPARISON: Chest abdomen pelvis CT 05/26/2021. FINDINGS: Chest CT: Small amount of mucoid material within the proximal trachea. Otherwise, the central airways are patent. There is a trace pleural effusions. No left pleural effusion. No pneumothorax. Motion artifact results in suboptimal evaluation. A few left basilar small linear densities favor subsegmental atelectasis. Otherwise, left lung is clear. There is marked elevation the right hemidiaphragm. This has progressed in the interval. There is consolidation within the base the right lower lobe which favors compressive atelectasis from the elevated right hemidiaphragm. A superimposed pneumonia would be difficult to exclude by imaging. No acute fractures identified within the chest. Evaluation for mediastinal injury is suboptimal due to the lack of intravenous contrast. However, there is no mediastinal hematoma or lymphadenopathy. No pericardial effusion. The heart is borderline enlarged. Mild calcified plaque within the normal caliber thoracic aorta. Mild circumferential thickening of the mid to distal esophagus is noted. Coronary artery calcifications are noted. Abdomen/pelvis CT: No pneumoperitoneum. No pneumatosis. No acute fractures identified. Severe hepatic steatosis is again noted. Evaluation of the solid abdominal viscera is suboptimal due to the lack of intravenous contrast. Moderate amount of fluid within the upper quadrant surrounding the liver and spleen. This is new from the prior study. There is also fluid tracking along the paracolic gutters and within the deep pelvis. Some of this is low density. Howev er, some of the the perihepatic fluid appears to represent intermediate density and could represent hemoperitoneum. However, this relative increased density within this fluid could be due to streak artifact from the patient's overlapping arms. The exact etiology is not clearly identified on this study but could be due to a hepatic laceration versus the artifact as described above. A 1.5 cm hyperdense focus within the right hepatic lobe which previously measured 1.0 cm is indeterminate. There is an additional 1.8 cm hypodense focus within the right hepatic dome on image 72. The unenhanced spleen appears unremarkable. The unenhanced pancreas, gallbladder, and kidneys appear unremarkable. 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 No retroperitoneal hematoma lymphadenopathy. Normal caliber abdominal aorta. The bladder is unremarkable. The prostate remains mildly enlarged. There is a left inguinal hernia containing a short segment of the vessel sigmoid colon, unchanged. Colonic diverticulosis. No evidence for acute diverticulitis. Qlzv-ca-[id number] bowel wall thickening wit hin the proximal colon. There is also multiple thickened loops of small bowel within the abdomen. This is new from the prior study and is consistent with a nonspecific enterocolitis. This could be due to the patient's diffuse edematous state. Moderate body wall edema. Suboptimal evaluation of the abdominal structures due to the streak artifact from the patient's overlapping arms. IMPRESSION: 1. Severe hepatic steatosis is again noted. Evaluation of the solid abdominal viscera is suboptimal due to the lack of intravenous contrast. Moderate amount of fluid within the upper quadrants surrounding the liver and spleen. This is new from the prior study. There is also fluid tracking along the paracolic gutters and within the deep pelvis. Some of this is low density. However, some of the the perihepatic fluid appears to represent intermediate density and could represent hemoperitoneum. However, this relative increased density within this fluid could be due to streak artifact from the patient's overlapping arms. The exact etiology is not clearly identified on this study but could be due to an occult hepatic laceration versus the artifact as described above. 2. No acute process within the chest. 3. Chronic elevation the right hemidiaphragm which has progressed. 4. No acute fractures identified. 5. Diffuse body wall edema. 6. Multiple thickened loops of small and large bowel consistent with a nonspecific enterocolitis. This could be due to the patient's diffuse edematous state. 7. Hyperdense right hepatic lobe lesions as described above which are indeterminate. Consider follow-up abdominal MRI in 3-6 months to ensure resolution. 8. Additional findings as described above. ACT 112: Positive. There are findings on this exam that require communication between the performing entity and the patient following Patient Test Result Information Act ([place] Act 112) guidelines. Electronically signed by: Nathaniel Schultz M.D. 04/28/2022 7:[address] 04/28/22 17:[address] DOSE: HISTORY: trauma TECHNIQUE: Multiaxial CT images of the head were performed without the use of intravenous contrast. Automated exposure control was utilized for this study. A dose lowering technique was utilized adhering to the principles of ALARA. Comparison: Head CT 03/31/2022. Findings: The paranasal sinuses and mastoid air cells are clear. The calvarium and skull base are intact. There is no mass, hematoma, midline shift, acute infarct. White matter hypodensity is nonspecific but suggestive of microvascular ischemic change. The ventricles and sulci demonstrate mild age-related involutional changes. Motion artifact. 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 Impression: Motion artifact. No definite acute intracranial abnormality. ACT 112: Negative or not required by law. Electronically signed by: Nathaniel Schultz M.D. 04/28/2022 7:04 PM Tibia/Fibula X-Ray 04/28/22 17:24 XR tibia fibula RT 2V CLINICAL HISTORY: trauma. Right lower leg pain. COMPARISON STUDY: Right knee 03/31/2022. FINDINGS: No fracture or dislocation within the right tibia or fibula. Vascular calcifications are noted. No radiopaque foreign bodies. Mild diffuse soft tissue edema is noted. IMPRESSION: No fractures within the right lower leg. ACT 112: Negative or not required by law. Electronically signed by: Nathaniel Schultz M.D. 04/28/2022 6:21 PM Discharge Plan Visit Data Chief Complaint: Lethargic ED Provider: Marcella Hurst Discharge Problem: Altered mental status, CHI (closed head injury), Hypokalemia, Elevated troponin, BRITTA (acute kidney injury), Abnormal LFTs, Dehydration Patient Disposition: Admitted As Inpatient Discharge Instructions Interventions: ED Discharge Assessment Last Done: 04/29/22 01:06
[2022-04-28 18:10] LABS: Alanine Aminotransferase 91 U/L (7-52); Albumin Globulin Ratio 0.6 (0.9-2); Albumin Level 2.9 gm/dl (3.4-5.0); Alkaline Phosphatase 208 U/L (34-104); Anion Gap 33 (3-11); BUN Creatinine Ratio 4.4 (10-20); Bilirubin,Total 6.8 mg/dl (0.2-1.0); Blood Urea Nitrogen 17 mg/dl (6-23); Calcium 8.4 mg/dl (8.5-10.1); Carbon Dioxide 16 mmol/L (21-32); Chloride 87 mmol/L (98-107); Est GFR (African American) 16.1 ml/min; Est GFR (Non-African American) 13.9 ml/min; Globulin 4.8 gm/dl (2.5-4.0); Glucose 146 mg/dl (70-99(Fasting)); Lipase 38 U/L (11-82); Magnesium 1.5 mg/dl (1.7-2.4); Sodium 136 mmol/L (136-145); Total Protein 7.7 gm/dl (6.0-8.3); Troponin I High Sensitivity 37.5 pg/ml (0-20)
[2022-04-28 18:19] LABS: Basophils # (auto) 0.01 K/uL (0-0.2); Basophils % (auto) 0.1 %; Eosinophils # (auto) 0.01 K/uL (0-0.50); Eosinophils % (auto) 0.1 %; Hematocrit (blood only) 34.1 % (42.0-52.0); Hemoglobin 11.9 g/dl (14.0-18.0); Immature Granulocytes # (auto) 0.06 K/uL (0.01-0.20); Immature Granulocytes % (auto) 0.5 %; Lymphocytes # (auto) 0.65 K/uL (1.2-3.4); Lymphocytes % (auto) 5.9 %; Mean Corpuscular Hemoglobin 35.8 pg (25.0-34.0); Mean Corpuscular Hgb Conc 34.9 g/dL (32.0-36.0); Mean Corpuscular Volume 102.7 fL (80.0-100.0); Mean Platelet Volume 11.1 fL (9.4-12.4); Monocytes # (auto) 0.89 K/uL (0.11-0.59); Monocytes % (auto) 8.1 %; Neutrophils # (auto) 9.42 K/uL (1.40-6.50); Neutrophils % (auto) 85.3 %; Platelet Count 103 K/uL (130-400); RDW Coefficient of Variation 19.9 % (11.5-14.5); RDW Standard Deviation 70.5 fL (36.4-46.3); Red Blood Count 3.32 M/uL (4.70-6.10); White Blood Count 11.04 K/ul (4.8-10.8)
[2022-04-28] MEDS ORDERED: MAGNESIUM SULFATE / D5W 1 GM/100 ML BAG IV STA ×2 (18:20→20:35)
--- NOTE | 2022-04-28 18:22 | XRay Report ---
XR tibia fibula RT 2V CLINICAL HISTORY: trauma. Right lower leg pain. COMPARISON STUDY: Right knee 03/31/2022. FINDINGS: No fracture or dislocation within the right tibia or fibula. Vascular calcifications are no yomaira. No radiopaque foreign bodies. Mild diffuse soft tissue edema is noted. IMPRESSION: No fractures within the right lower leg. ACT 112: Negative or not required by law. Electronically signed by: Nathaniel Schultz M.D. 04/28/2022 6:21 PM
[2022-04-28 19:01] LABS: Potassium 3.1 mmol/L (3.5-5.1)
--- NOTE | 2022-04-28 19:07 | CT Scan Report ---
HEAD CT NONCONTRAST CT DOSE: HISTORY: trauma TECHNIQUE: Multiaxial CT images of the head were performed without the use of intravenous contrast. A utomated exposure control was utilized for this study. A dose lowering technique was utilized adheri ng to the principles of ALARA. Comparison: Head CT 03/31/2022. Findings: The paranasal sinuses and mastoid air cells are clear. The calvarium and skull base are int act. There is no mass, hematoma, midline shift, acute infarct. White matter hypodensity is nonspecifi c but suggestive of microvascular ischemic change. The ventricles and sulci demonstrate mild age-rela yomaira involutional changes. Motion artifact. 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 Impression: Motion artifact. No definite acute intracranial abnormality. ACT 112: Negative or not required by law. Electronically signed by: Nathaniel Schultz M.D. 04/28/2022 7:04 PM
[2022-04-28 19:12] LABS: INR 1.8 (0.9-1.1); Prothrombin Time 18.6 Seconds (9.0-12.0)
--- NOTE | 2022-04-28 19:12 | CT Scan Report ---
CERVICAL SPINE CT CT DOSE: 2066.38 mGy.cm HISTORY: Fall. trauma TECHNIQUE: Multiaxial CT images of the cervical spine were performed and reformatted in the sagittal and coronal plane without the use of contrast. A dose lowering technique was utilized adhering to th e principles of ALARA. COMPARISON: Cervical spine CT 03/28/2022. FINDINGS: No fractures. Advanced degenerative changes again noted throughout the cervical spine with multiple fused vertebral bodies and facets from the C2-C4 levels. There is straightening of the cervi jonnie spine. Prevertebral soft tissues and the C1-C2 interval are intact. No pneumothorax. IMPRESSION: No fractures within the cervical spine. ACT 112: Negative or not required by law. Electronically signed by: Nathaniel Schultz M.D. 04/28/2022 7:10 PM
--- NOTE | 2022-04-28 19:37 | CT Scan Report ---
CT chest diagnostic wo con, CT abd pelvis wo con CT DOSE: HISTORY: trauma, altered mental status. Fall. Right-sided rib and abdominal pain. TECHNIQUE: Multiaxial CT images of the chest , abdomen, pelvis were performed without contrast. A do se lowering technique was utilized adhering to the principles of ALARA. COMPARISON: Chest abdomen pelvis CT 05/26/2021. FINDINGS: Chest CT: Small amount of mucoid material within the proximal trachea. Otherwise, the central airways are patent. There is a trace pleural effusions. No left pleural effusion. No pneumothorax. Motion ar tifact results in suboptimal evaluation. A few left basilar small linear densities favor subsegmental atelectasis. Otherwise, left lung is clear. There is marked elevation the right hemidiaphragm. This has progressed in the interval. There is consolidation within the base the right lower lobe which fav ors compressive atelectasis from the elevated right hemidiaphragm. A superimposed pneumonia would be difficult to exclude by imaging. No acute fractures identified within the chest. Evaluation for media stinal injury is suboptimal due to the lack of intravenous contrast. However, there is no mediastinal hematoma or lymphadenopathy. No pericardial effusion. The heart is borderline enlarged. Mild calcifi ed plaque within the normal caliber thoracic aorta. Mild circumferential thickening of the mid to dis catrachito esophagus is noted. Coronary artery calcifications are noted. Abdomen/pelvis CT: No pneumoperitoneum. No pneumatosis. No acute fractures identified. Severe hepatic steatosis is again noted. Evaluation of the solid abdominal viscera is suboptimal due to the lack of intravenous contrast. Moderate amount of fluid within the upper quadrant surrounding the liver and s pleen. This is new from the prior study. There is also fluid tracking along the paracolic gutters and within the deep pelvis. Some of this is low density. However, some of the the perihepatic fluid appe ars to represent intermediate density and could represent hemoperitoneum. However, this relative incr eased density within this fluid could be due to streak artifact from the patient's overlapping arms. The exact etiology is not clearly identified on this study but could be due to a hepatic laceration v ersus the artifact as described above. A 1.5 cm hyperdense focus within the right hepatic lobe which previously measured 1.0 cm is indeterminate. There is an additional 1.8 cm hypodense focus within the right hepatic dome on image 72. The unenhanced spleen appears unremarkable. The unenhanced pancreas, gallbladder, and kidneys appear unremarkable. Stable 1.7 cm aneurysmal dilatation of the celiac aleena ry. No retroperitoneal hematoma lymphadenopathy. Normal caliber abdominal aorta. The bladder is unrem arkable. The prostate remains mildly enlarged. There is a left inguinal hernia containing a short seg ment of the vessel sigmoid colon, unchanged. Colonic diverticulosis. No evidence for acute diverticul itis. [id number] bowel wall thickening within the proximal colon. There is also multiple thicke dannie loops of small bowel within the abdomen. This is new from the prior study and is consistent with a nonspecific enterocolitis. This could be due to the patient's diffuse edematous state. Moderate bod y wall edema. Suboptimal evaluation of the abdominal structures due to the streak artifact from the p atient's overlapping arms. IMPRESSION: 1. Severe hepatic steatosis is again noted. Evaluation of the solid abdominal viscera is suboptimal d ue to the lack of intravenous contrast. Moderate amount of fluid within the upper quadrants surroundi ng the liver and spleen. This is new from the prior study. There is also fluid tracking along the par acolic gutters and within the deep pelvis. Some of this is low density. However, some of the the michelle hepatic fluid appears to represent intermediate density and could represent hemoperitoneum. However, this relative increased density within this fluid could be due to streak artifact from the patient's overlapping arms. The exact etiology is not clearly identified on this study but could be due to an o ccult hepatic laceration versus the artifact as described above. 2. No acute process within the chest. 3. Chronic elevation the right hemidiaphragm which has progressed. 4. No acute fractures identified. 5. Diffuse body wall edema. 6. Multiple thickened loops of small and large bowel consistent with a nonspecific enterocolitis. Thi s could be due to the patient's diffuse edematous state. 7. Hyperdense right hepatic lobe lesions as described above which are indeterminate. Consider follow- up abdominal MRI in 3-6 months to ensure resolution. 8. Additional findings as described above. ACT 112: Positive. There are findings on this exam that require communication between the performing entity and the patient following Patient Test Result Information Act ([place] Act 112) guidelines. Electronically signed by: Nathaniel Schultz M.D. 04/28/2022 7:35 PM
[2022-04-28] MEDS ORDERED: SODIUM BICARBONATE 8.4% 150 MEQ in WATER, STERILE 1,000 ML IV SCH (21:00)
[2022-04-28] MEDS ORDERED: POTASSIUM CHLORIDE / WTR 10 MEQ/100 ML PLCT IV ONE (21:06)
[2022-04-28] MEDS: NORMOSOL-R 1,000 ML IV SCH (21:13)
--- NOTE | 2022-04-28 21:16 | History & Physical Report ---
Date of Service April 28, 2022 Assessment & Plan (1) CHI (closed head injury): (2) Abnormal LFTs: (3) BRITTA (acute kidney injury): (4) Dehydration: (5) (HFpEF) heart failure with preserved ejection fraction: (6) Folate deficiency: (7) Alcoholism: (8) Gait disorder, alcoholic: (9) Anasarca: (10) Hypertension: (11) Altered mental status: Plan Altered mental status/alcoholism- Patient did fall and hit his head today, however, his symptoms had begun significantly prior to that CT head negative for injury Alcohol level 125.1 Ammonia level added to normal at 59 Likely has an element of Warnicke's encephalopathy aggravated by nutritional deficiencies Receiving a banana bag in the ED Anion gap 33, with calculated osmolal gap is 18.1 suggesting an intake in addition to alcohol Continue IV fluid resuscitation NSS at 125 mils per hour Follow serial BMP and magnesium levels at 4-hour intervals for today AWSS protocol with IV Ativan Thiamine 100 mg IV every morning Folic acid 1 mg IV every morning Hypomagnesemia- Replace IV and recheck laboratories serially Abnormal LFTs- CT does not note cirrhosis but does note anasarca Coagulopathy- INR 1.8, follow serially No active bleeding MELD score 33 Acute kidney injury Creatinine 3.87, with baseline 0.73 Difficult time obtaining access Continue banana bag Continue normal saline at 125 mils per hour Thrombocytopenia- Platelets 103 Secondary to alcoholism Follow serially History of Present Illness Chief Complaint: The patient was referred to the emergency department via EMS by his caregiver due to worsening confusion, ongoing alcohol use, and decreased oral intake over the past week, complicated by a fall this morning where he did strike his head. The patient is a very poor historian, with HPI and ROS being very limited Primary Care Provider: Chong Reyes DO The patient is a 77-year-old male with a past medical history including closed head injury, acute kidney injury, HFpEF, folate deficiency, alcohol use disorder, ambulatory dysfunction, hypertension, carotid artery disease, celiac artery aneurysm, dyslipidemia and alcoholism. Patient is referred to the emergency department by caregiver as noted above. The patient is very lethargic and does not contribute significantly to his HPI or review of systems Allergies Allergy/AdvReac Type Severity Reaction Status Date / Time No Known Allergies Allergy Verified 04/28/22 19:22 Home Medications Medication Instructions Recorded Confirmed Type folic acid 1 mg tablet 1 mg PO QAM #30 tabs 03/16/22 04/28/22 Rx furosemide 20 mg tablet (Lasix) 20 mg PO DAILY PRN edema #120 tabs 03/29/22 04/28/22 Rx potassium chloride 20 mEq 20 meq PO DAILY #120 tabs 03/29/22 04/28/22 Rx tablet,extended release magnesium oxide 400 mg PO DAILY #60 tabs 03/30/22 04/28/22 Rx Past Med/Surg History Medical History (Updated 04/29/22 @ 05:41 by Gianni Solitario MD) Alcohol use disorder in remission Alcoholism Anemia Arteriosclerosis of carotid artery Celiac artery aneurysm Diverticulosis Dyslipidemia Erectile dysfunction Gait disorder, alcoholic Hypertension Hypomagnesemia Internal hemorrhoids Tubular adenoma of colon Surgical History H/O hernia repair abdominal hernia repair with mesh (2002); hospital in [facility] H/O tooth extraction Family History Mother Dementia Father Stroke Grandfather (Maternal) Heart disease Denies family history of Ovarian cancer Prostate cancer Myocardial infarction Breast cancer Lung cancer Pulmonary embolism Cancer Social History Smoking Status: Unknown if ever smoked Tobacco Type: Cigarettes Second Hand Exposure: No; Hx Alcohol Use: Yes Alcohol type: beer and hard liquor Alcohol Intake Frequency: 4 or More x per/Week Hx Substance Use: Yes Preferred Language: Tanzanian Communication Ability: Effective Visual Impairment: No Limitations Hearing Ability: Normal Lgsw Required: No Beliefs That Will Affect Care: None marital status: Single Current Living Situation: Alone current occupational status: retired current occupation: does consulting work on the side How many Children do You have: 2 Other Information That Helps Us Care for You: Yes (patient needs help at home) Feels Safe at Home: Yes Safety Concerns: Feels Safe At This Time Childhood Exposure to Second-Hand Smoke: No caffeine: Yes Dental Care, Regularly: Yes Physical Activity Frequency: 5-6 Times per Week Seatbelt Use: always Sunscreen Use: Yes Assistive Devices: None Review of Systems Review of Systems: Severely limited as noted above Physical Exam Physical Exam: The patient is lethargic, disheveled appearing, normocephalic and atraumatic, lying in bed, staring at the ceiling and in no acute distress. HEENT--PERRL, EOMI, mucous membranes icteric and oropharynx dry. Neck--supple. No JVD. No bruits. Thyroid normal, trachea midline, no adenopathy. Heart--normal S1 and S2. No murmurs, rubs or gallops. Lungs--clear bilaterally, no respiratory distress, no accessory muscle use. Abdomen--normal bowel sounds and soft. Distended, nontender Extremities--1+ bilateral pretibial pitting edema Dermatologic--jaundiced Neurologic--cranial nerves II through XII grossly intact. Limited exam Rheumatologic--limited exam. Psychiatric--unresponsive. Results & Data Results & Data Vital Signs (Past 12 Hours) Vital Signs Temp Pulse Pulse Resp BP BP Pulse Ox 04/28/22 20:12 96 H 16 93/61 L 95 04/28/22 19:30 92 H 16 107/75 96 04/28/22 17:55 99 H 04/28/22 17:30 87 20 92/77 L 96 04/28/22 17:08 99 H 18 112/75 99 04/28/22 16:48 36.9 C 97 H 16 100/84 95 O2 Del Method 04/28/22 20:12 Room Air 04/28/22 19:30 Room Air 04/28/22 17:55 04/28/22 17:30 Room Air 04/28/22 17:08 Room Air 04/28/22 16:48 Room Air Laboratory Results Laboratory Results WBC 11.04 K/ul (4.8-10.8) H 04/28/22 17:02 RBC 3.32 M/uL (4.70-6.10) L 04/28/22 17:02 Hgb 11.9 g/dl (14.0-18.0) L 04/28/22 17:02 POC Hgb 11.2 g/dl (14.0-18.0) L 04/28/22 22:46 Hct 34.1 % (42.0-52.0) L 04/28/22 17:02 POC Hct 33 % (42-52) L 04/28/22 22:46 MCV 102.7 fL (80.0-100.0) H 04/28/22 17:02 MCH 35.8 pg (25.0-34.0) H 04/28/22 17:02 MCHC 34.9 g/dL (32.0-36.0) 04/28/22 17:02 RDW Std Deviation 70.5 fL (36.4-46.3) H 04/28/22 17:02 RDW Coeff of Juan 19.9 % (11.5-14.5) H 04/28/22 17: Plt Count 103 K/uL (130-400) L 04/28/22 17:02 MPV 11.1 fL (9.4-12.4) 04/28/22 17: Immature Gran % (Auto) 0.5 % 04/28/22 17: Neut % (Auto) 85.3 % 04/28/22 17:02 Lymph % (Auto) 5.9 % 04/28/22 17:02 Gooding % (Auto) 8.1 % 04/28/22 17: Eos % (Auto) 0.1 % 04/28/22 17:02 Baso % (Auto) 0.1 % 04/28/22 17:02 Neut # (Auto) 9.42 K/uL (1.40-6.50) H 04/28/22 17:02 Lymph # (Auto) 0.65 K/uL (1.2-3.4) L 04/28/22 17:02 Gooding # (Auto) 0.89 K/uL (0.11-0.59) H 04/28/22 17:02 Eos # (Auto) 0.01 K/uL (0-0.50) 04/28/22 17:02 Baso # (Auto) 0.01 K/uL (0-0.2) 04/28/22 17:02 Immature Gran # (Auto) 0.06 K/uL (0.01-0.20) 04/28/22 17:02 PT 18.6 Seconds (9.0-12.0) H 04/28/22 18:22 INR 1.8 (0.9-1.1) H 04/28/22 18:22 POC pH 7.39 (7.35-7.45) 04/28/22 22:46 POC pCO2 26 mmHg (35-46) L 04/28/22 22:46 POC pO2 98 mmHg (80-95) H 04/28/22 22:46 POC HCO3 16 misty/L (19-24) L 04/28/22 22:46 POC Total CO2 16 mmol/L (24-31) L 04/28/22 22:46 POC Base Excess -9.0 misty/L (-9-1.8) 04/28/22 22:46 POC ABG O2 Sat 98.0 % (90-95) H 04/28/22 22:46 POC Sodium 136 mmol/L (135-144) 04/28/22 22:46 Sodium 140 mmol/L (136-145) 04/29/22 02:22 POC Potassium 3.3 mmol/L (3.3-5.0) 04/28/22 22:46 Potassium 3.9 mmol/L (3.5-5.1) D 04/29/22 02:22 Chloride 95 mmol/L (98-107) L 04/29/22 02:22 Carbon Dioxide 12 mmol/L (21-32) L 04/29/22 02:22 Anion Gap 33 (3-11) H 04/29/22 02:22 BUN 17 mg/dl (6-23) 04/29/22 02:22 Creatinine 4.05 mg/dl (0.6-1.4) H 04/29/22 02:22 Est Cr Clr Drug Dosing 14.3 ml/min 04/29/22 02:22 Est GFR ( Amer) 15.2 ml/min 04/29/22 02:22 Est GFR (Non-Af Amer) 13.1 ml/min 04/29/22 02:22 BUN/Creatinine Ratio 4.2 (10-20) L 04/29/22 02:22 Glucose 44 mg/dl (70-99(Fasting)) L* 04/29/22 02:22 POC Glucose 131 mg/dl (70-99) H 04/28/22 16:51 Osmolality 338 mOsm/kg (280-300) H 04/28/22 17:02 Calcium 7.6 mg/dl (8.5-10.1) L 04/29/22 02:22 Magnesium 1.5 mg/dl (1.7-2.4) L 04/28/22 17:02 Total Bilirubin 6.8 mg/dl (0.2-1.0) H 04/28/22 17:02 AST 391 U/L (13-39) H 04/28/22 18:22 ALT 91 U/L (7-52) H 04/28/22 17:02 Alkaline Phosphatase 208 U/L (34-104) H 04/28/22 17:02 Ammonia 59.0 umol/L (18-72) 04/28/22 21:20 Troponin I High Sens 37.5 pg/ml (0-20) H 04/28/22 17:02 Total Protein 7.7 gm/dl (6.0-8.3) 04/28/22 17:02 Albumin 2.9 gm/dl (3.4-5.0) L 04/28/22 17:02 Globulin 4.8 gm/dl (2.5-4.0) H 04/28/22 17:02 Albumin/Globulin Ratio 0.6 (0.9-2) L 04/28/22 17:02 Lipase 38 U/L (11-82) 04/28/22 17:02 Urine Color Brown 04/29/22 03:25 Urine Appearance Cloudy (Clear) A 04/29/22 03:25 Urine pH 5.0 (4.5-7.5) 04/29/22 03:25 Ur Specific [place] 1.020 (1.000-1.030) 04/29/22 03:25 Urine Protein 3+ (Negative) H 04/29/22 03:25 Urine Glucose (UA) Trace (Negative) H 04/29/22 03:25 Urine Ketones 1+ (Negative) H 04/29/22 03:25 Urine Blood 1+ (Negative) H 04/29/22 03:25 Urine Nitrite Positive (Negative) A 04/29/22 03:25 Urine Bilirubin 3+ (Negative) H 04/29/22 03:25 Urine Urobilinogen Positive (Negative) H 04/29/22 03:25 Ur Leukocyte Esterase 3+ (Negative) H 04/29/22 03:25 Urine RBC 0-4 /hpf (0-4) 04/29/22 03:25 Urine WBC >30 /hpf (0-5) H 04/29/22 03:25 Ur Epithelial Cells 0-5 /lpf (0-5) 03/18/23 03:25 Urine Bacteria 2+ (Negative) H 04/29/22 03:25 Urine Opiates Screen Neg (Neg) 04/29/22 03:25 Ur Methadone, Qual Neg (Neg) 04/29/22 03:25 Urine Barbiturates Neg (Neg) 04/29/22 03:25 Ur Phencyclidine (PCP) Neg (Neg) 04/29/22 03:25 U Amphetamin/Meth Scrn Neg (Neg) 04/29/22 03:25 MDMA (Ecstasy) Screen Neg (Neg) 04/29/22 03:25 U Benzodiazepines Scrn Neg (Neg) 04/29/22 03:25 Ur Cocaine Metabolite Neg (Neg) 04/29/22 03:25 U Marijuana (THC) Screen Neg (Neg) 04/29/22 03:25 Ethyl Alcohol mg/dL 125.1 mg/dl (<10.0) H 04/28/22 17:02 SARS-CoV-2, RNA, NAAT NEGATIVE (NEGATIVE) 04/28/22 21:37 Impressions Abdomen/Pelvis CT 04/28/22 17:04 CT chest diagnostic wo con, CT abd pelvis wo con CT DOSE: HISTORY: trauma, altered mental status. Fall. Right-sided rib and abdominal pain. TECHNIQUE: Multiaxial CT images of the chest , abdomen, pelvis were performed without contrast. A dose lowering technique was utilized adhering to the principles of ALARA. COMPARISON: Chest abdomen pelvis CT 05/26/2021. FINDINGS: Chest CT: Small amount of mucoid material within the proximal trachea. Otherwise, the central airways are patent. There is a trace pleural effusions. No left pleural effusion. No pneumothorax. Motion artifact results in suboptimal evaluation. A few left basilar small linear densities favor subsegmental atelectasis. Otherwise, left lung is clear. There is marked elevation the right hemidiaphragm. This has progressed in the interval. There is consolidation within the base the right lower lobe which favors compressive atelectasis from the elevated right hemidiaphragm. A superimposed pneumonia would be difficult to exclude by imaging. No acute fractures identified within the chest. Evaluation for mediastinal injury is suboptimal due to the lack of intravenous contrast. However, there is no mediastinal hematoma or lymphadenopathy. No pericardial effusion. The heart is borderline enlarged. Mild calcified plaque within the normal caliber thoracic aorta. Mild circumferential thickening of the mid to distal esophagus is noted. Coronary artery calcifications are noted. Abdomen/pelvis CT: No pneumoperitoneum. No pneumatosis. No acute fractures identified. Severe hepatic steatosis is again noted. Evaluation of the solid abdominal viscera is suboptimal due to the lack of intravenous contrast. Moderate amount of fluid within the upper quadrant surrounding the liver and spleen. This is new from the prior study. There is also fluid tracking along the paracolic gutters and within the deep pelvis. Some of this is low density. However, some of the the perihepatic fluid appears to represent intermediate density and could represent hemoperitoneum. However, this relative increased density within this fluid could be due to streak artifact from the patient's overlapping arms. The exact etiology is not clearly identified on this study but could be due to a hepatic laceration versus the artifact as described above. A 1.5 cm hyperdense focus within the right hepatic lobe which previously measured 1.0 cm is indeterminate. There is an additional 1.8 cm hypodense focus within the right hepatic dome on image 72. The unenhanced spleen appears unremarkable. The unenhanced pancreas, gallbladder, and kidneys appear unremarkable. 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 No retroperitoneal hematoma lymphadenopathy. Normal caliber abdominal aorta. The bladder is unremarkable. The prostate remains mildly enlarged. There is a left inguinal hernia containing a short segment of the vessel sigmoid colon, unchanged. Colonic diverticulosis. No evidence for acute diverticulitis. [id number] bowel wall thickening within the proximal colon. There is also multiple thickened loops of small bowel within the abdomen. This is new from the prior study and is consistent with a nonspecific enterocolitis. This could be due to the patient's diffuse edematous state. Moderate body wall edema. Suboptimal evaluation of the abdominal structures due to the streak artifact from the patient's overlapping arms. IMPRESSION: 1. Severe hepatic steatosis is again noted. Evaluation of the solid abdominal viscera is suboptimal due to the lack of intravenous contrast. Moderate amount of fluid within the upper quadrants surrounding the liver and spleen. This is new from the prior study. There is also fluid tracking along the paracolic gutters and within the deep pelvis. Some of this is low density. However, some of the the perihepatic fluid appears to represent intermediate density and could represent hemoperitoneum. However, this relative increased density within this fluid could be due to streak artifact from the patient's overlapping arms. The exact etiology is not clearly identified on this study but could be due to an occult hepatic laceration versus the artifact as described above. 2. No acute process within the chest. 3. Chronic elevation the right hemidiaphragm which has progressed. 4. No acute fractures identified. 5. Diffuse body wall edema. 6. Multiple thickened loops of small and large bowel consistent with a nonspecific enterocolitis. This could be due to the patient's diffuse edematous state. 7. Hyperdense right hepatic lobe lesions as described above which are indeterminate. Consider follow-up abdominal MRI in 3-6 months to ensure resolution. 8. Additional findings as described above. ACT 112: Positive. There are findings on this exam that require communication between the performing entity and the patient following Patient Test Result Information Act ([place] Act 112) guidelines. Electronically signed by: Nathaniel Schultz M.D. 04/28/2022 7:[address] 04/28/22 17:[address] DOSE: 2066.38 mGy.cm HISTORY: Fall. trauma TECHNIQUE: Multiaxial CT images of the cervical spine were performed and reformatted in the sagittal and coronal plane without the use of contrast. A dose lowering technique was utilized adhering to the principles of ALARA. COMPARISON: Cervical spine CT 03/28/2022. FINDINGS: No fractures. Advanced degenerative changes again noted throughout the cervical spine with multiple fused vertebral bodies and facets from the C2-C4 levels. There is straightening of the cervical spine. Prevertebral soft tissues and the C1-C2 interval are intact. No pneumothorax. IMPRESSION: No fractures within the cervical spine. ACT 112: Negative or not required by law. Electronically signed by: Nathaniel Schultz M.D. 04/28/2022 7:[address] 04/28/22 17:04 CT chest diagnostic wo con, CT abd pelvis wo con CT DOSE: HISTORY: trauma, altered mental status. Fall. Right-sided rib and abdominal pain. TECHNIQUE: Multiaxial CT images of the chest , abdomen, pelvis were performed without contrast. A dose lowering technique was utilized adhering to the principles of ALARA. COMPARISON: Chest abdomen pelvis CT 05/26/2021. FINDINGS: Chest CT: Small amount of mucoid material within the proximal trachea. Otherwise , the central airways are patent. There is a trace pleural effusions. No left pleural effusion. No pneumothorax. Motion artifact results in suboptimal evaluation. A few left basilar small linear densities favor subsegmental atelectasis. Otherwise, left lung is clear. There is marked elevation the right hemidiaphragm. This has progressed in the interval. There is consolidation within the base the right lower lobe which favors compressive atelectasis from the elevated right hemidiaphragm. A superimposed pneumonia would be difficult to exclude by imaging. No acute fractures identified within the chest. Evaluation for mediastinal injury is suboptimal due to the lack of intravenous contrast. However, there is no mediastinal hematoma or lymphadenopathy. No pericardial effusion. The heart is borderline enlarged. Mild calcified plaque within the normal caliber thoracic aorta. Mild circumferential thickening of the mid to distal esophagus is noted. Coronary artery calcifications are noted. Abdomen/pelvis CT: No pneumoperitoneum. No pneumatosis. No acute fractures identified. Severe hepatic steatosis is again noted. Evaluation of the solid abdominal viscera is suboptimal due to the lack of intravenous contrast. Moderate amount of fluid within the upper quadrant surrounding the liver and spleen. This is new from the prior study. There is also fluid tracking along the paracolic gutters and within the deep pelvis. Some of this is low density. However, some of the the perihepatic fluid appears to represent intermediate density and could represent hemoperitoneum. However, this relative increased density within this fluid could be due to streak artifact from the patient's overlapping arms. The exact etiology is not clearly identified on this study but could be due to a hepatic laceration versus the artifact as described above. A 1.5 cm hyperdense focus within the right hepatic lobe which previously measured 1.0 cm is indeterminate. There is an additional 1.8 cm hypodense focus within the right hepatic dome on image 72. The unenhanced spleen appears unremarkable. The unenhanced pancreas, gallbladder, and kidneys appear unremarkable. 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 No retroperitoneal hematoma lymphadenopathy. Normal caliber abdominal aorta. The bladder is unremarkable. The prostate remains mildly enlarged. There is a left inguinal hernia containing a short segment of the vessel sigmoid colon, unchanged. Colonic diverticulosis. No evidence for acute diverticulitis. [id number] bowel wall thickening within the proximal colon. There is also multiple thickened loops of small bowel within the abdomen. This is new from the prior study and is consistent with a nonspecific enterocolitis. This could be due to the patient's diffuse edematous state. Moderate body wall edema. Suboptimal evaluation of the abdominal structures due to the streak artifact from the patient's overlapping arms. IMPRESSION: 1. Severe hepatic steatosis is again noted. Evaluation of the solid abdominal viscera is suboptimal due to the lack of intravenous contrast. Moderate amount of fluid within the upper quadrants surrounding the liver and spleen. This is new from the prior study. There is also fluid tracking along the paracolic gutters and within the deep pelvis. Some of this is low density. However, some of the the perihepatic fluid appears to represent intermediate density and could represent hemoperitoneum. However, this relative increased density within this fluid could be due to streak artifact from the patient's overlapping arms. The exact etiology is not clearly identified on this study but could be due to an occult hepatic laceration versus the artifact as described above. 2. No acute process within the chest. 3. Chronic elevation the right hemidiaphragm which has progressed. 4. No acute fractures identified. 5. Diffuse body wall edema. 6. Multiple thickened loops of small and large bowel consistent with a nonspecific enterocolitis. This could be due to the patient's diffuse edematous state. 7. Hyperdense right hepatic lobe lesions as described above which are indeterminate. Consider follow-up abdominal MRI in 3-6 months to ensure resolution. 8. Additional findings as described above. ACT 112: Positive. There are findings on this exam that require communication between the performing entity and the patient following Patient Test Result Information Act ([place] Act 112) guidelines. Electronically signed by: Nathaniel Schultz M.D. 04/28/2022 7:[address] 04/28/22 17:[address] DOSE: HISTORY: trauma TECHNIQUE: Multiaxial CT images of the head were performed without the use of intravenous contrast. Automated exposure control was utilized for this study. A dose lowering technique was utilized adhering to the principles of ALARA. Comparison: Head CT 03/31/2022. Findings: The paranasal sinuses and mastoid air cells are clear. The calvarium and skull base are intact. There is no mass, hematoma, midline shift, acute infarct. White matter hypodensity is nonspecific but suggestive of microvascular ischemic change. The ventricles and sulci demonstrate mild age-related involutional changes. Motion artifact. 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 Impression: Motion artifact. No definite acute intracranial abnormality. ACT 112: Negative or not required by law. Electronically signed by: Nathaniel Schultz M.D. 04/28/2022 7:04 PM Tibia/Fibula X-Ray 04/28/22 17:24 XR tibia fibula RT 2V CLINICAL HISTORY: trauma. Right lower leg pain. COMPARISON STUDY: Right knee 03/31/2022. FINDINGS: No fracture or dislocation within the right tibia or fibula. Vascular calcifications are noted. No radiopaque foreign bodies. Mild diffuse soft tissue edema is noted. IMPRESSION: No fractures within the right lower leg. ACT 112: Negative or not required by law. Electronically signed by: Nathaniel Schultz M.D. 04/28/2022 6:21 PM Code Status & VTE Plan Code Status Full code VTE Prophylaxis Plan VTE Prophylaxis will be ordered: Yes PG Care Time/CCT Total # of Minutes Spent Total Time Spent with Patient: Total time spent is greater than 50% in coordination of care (as documented) at patient's floor/unit and/or counseling patient: Coding Level of Care Code 00068 INT INP/OBS CARE 3MIN Diagnoses CHI (closed head injury) S09.90XA Abnormal LFTs R79.89 BRITTA (acute kidney injury) N17.9 Dehydration E86.0 (HFpEF) heart failure with preserved ejection fraction I50.30 Folate deficiency E53.8 Alcoholism F10.20 Gait disorder, alcoholic F10.20; R26.9 Anasarca R60.1 Hypertension I10 Altered mental status R41.82
[2022-04-28 23:01] LABS: iSTAT Arterial Blood Gas HCO3 16 meg/L (19-24); iSTAT Arterial Blood Gas pCO2 26 mmHg (35-46); iSTAT Arterial Blood Gas pH 7.39 (7.35-7.45); iSTAT Arterial Blood Gas pO2 98 mmHg (80-95); iSTAT Carbon Dioxide 16 mmol/L (24-31); iSTAT Hematocrit 33 % (42-52); iSTAT Hemoglobin 11.2 g/dl (14.0-18.0); iSTAT Potassium 3.3 mmol/L (3.3-5.0); iSTAT Sodium 136 mmol/L (135-144)
[2022-04-29] MEDS ORDERED: ONDANSETRON INJ 2 MG/ML 2 ML VIAL IV PRN (01:05)
[2022-04-29 03:50] LABS: Appearance Urine Cloudy (Clear); Bilirubin Urine 3+ (Negative); Blood Urine 1+ (Negative); Color Urine Brown; Glucose Urine UA Trace (Negative); Ketones Urine 1+ (Negative); Leukocyte Esterase Urine 3+ (Negative); Nitrite Urine Positive (Negative); Protein Urine 3+ (Negative); Urobilinogen Urine Positive (Negative)
[2022-04-29] MEDS: NORMOSOL-R 1,000 ML IV SCH (04:00)
[2022-04-29 04:06] LABS: Amphetamines+Metham, Urine Neg (Neg); Barbiturates, Urine Neg (Neg); Benzodiazepine, Urine Neg (Neg); Cocaine, Urine Neg (Neg); MDMA (Ecstacy), Urine Neg (Neg); Methadone, Urine Neg (Neg); Opiate, Urine Neg (Neg); Phencyclidine, Urine Neg (Neg)
[2022-04-29 04:14] LABS: BUN Creatinine Ratio 4.2 (10-20); Calcium 7.6 mg/dl (8.5-10.1); Creatinine Clr Calc Pharmacy 14.3 ml/min; Est GFR (African American) 15.2 ml/min; Est GFR (Non-African American) 13.1 ml/min; Potassium 3.9 mmol/L (3.5-5.1)
[2022-04-29 04:20] LABS: Bacteria Urine 2+ (Negative); Epithelial Cell Urine 0-5 /lpf (0-5); RBC Urine 0-4 /hpf (0-4); WBC Urine >30 /hpf (0-5)
[2022-04-29] MEDS ORDERED: DEXTROSE 50% 50 ML SYRINGE IV STA (04:50)
[2022-04-29] MEDS ORDERED: DEXTROSE 50% 50 ML SYRINGE IV ONE ×2 (05:08→14:32)
[2022-04-29] MEDS ORDERED: LORazepam 2 MG/1 ML VIAL IV PRN ×3 (05:49)
[2022-04-29] MEDS ORDERED: Ativan IV Alcohol Withdrawal--Active Protocol IV PRN (05:49)
[2022-04-29 06:55] LABS: Basophils # (auto) 0.01 K/uL (0-0.2); Basophils % (auto) 0.1 %; Hematocrit (blood only) 26.9 % (42.0-52.0); Hemoglobin 9.3 g/dl (14.0-18.0); Immature Granulocytes # (auto) 0.05 K/uL (0.01-0.20); Immature Granulocytes % (auto) 0.4 %; Lymphocytes # (auto) 0.77 K/uL (1.2-3.4); Lymphocytes % (auto) 6.3 %; Mean Corpuscular Hemoglobin 35.5 pg (25.0-34.0); Mean Corpuscular Hgb Conc 34.6 g/dL (32.0-36.0); Mean Corpuscular Volume 102.7 fL (80.0-100.0); Mean Platelet Volume 11.1 fL (9.4-12.4); Monocytes # (auto) 1.15 K/uL (0.11-0.59); Monocytes % (auto) 9.5 %; Neutrophils # (auto) 10.16 K/uL (1.40-6.50); Neutrophils % (auto) 83.7 %; Platelet Count 102 K/uL (130-400); RDW Coefficient of Variation 19.8 % (11.5-14.5); RDW Standard Deviation 70.8 fL (36.4-46.3); Red Blood Count 2.62 M/uL (4.70-6.10); White Blood Count 12.14 K/ul (4.8-10.8)
[2022-04-29 07:10] LABS: Partial Thromboplastin Ratio 1.6; Partial Thromboplastin Time 44.2 Seconds (21.0-31.0); Prothrombin Time 20.3 Seconds (9.0-12.0)
[2022-04-29 07:23] LABS: Total Protein 5.9 gm/dl (6.0-8.3)
--- NOTE | 2022-04-29 07:32 | Electrocardiogram Report ---
Test Reason : Blood Pressure : / mmHG Vent. Rate : 096 BPM Atrial Rate : 096 BPM P-R Int : 150 ms QRS Dur : 084 ms QT Int : 564 ms P-R-T Axes : 054 006 068 degrees QTc Int : 712 ms Sinus rhythm with occasional Premature ventricular complexes Low voltage QRS Cannot rule out Anterior infarct (cited on or before 13-MAR-2022) Nonspecific ST abnormality Prolonged QT Abnormal ECG Confirmed by Matthew Armendariz ([id number]) on 04/29/2022 7:32:05 AM Referred By: REFERRED SELF Confirmed By:Chris Armendariz
[2022-04-29 07:48] LABS: Albumin Globulin Ratio 0.6 (0.9-2); Albumin Level 2.3 gm/dl (3.4-5.0); BUN Creatinine Ratio 4.2 (10-20); Bilirubin,Total 5.8 mg/dl (0.2-1.0); Calcium 7.5 mg/dl (8.5-10.1); Creatinine Clr Calc Pharmacy 14.2 ml/min; Est GFR (African American) 15.1 ml/min; Globulin 3.6 gm/dl (2.5-4.0); Magnesium 1.8 mg/dl (1.7-2.4); Potassium 3.7 mmol/L (3.5-5.1)
[2022-04-29] MEDS ORDERED: PHYTONADIONE 5 MG in DEXTROSE 5% 50 ML IV ONE (08:15)
[2022-04-29] MEDS ORDERED: PANTOprazole 40 MG in SYRINGE 0 ML IV ONE (08:42)
--- NOTE | 2022-04-29 08:49 | Hospitalist Progress Note ---
Date of Service April 29, 2022 Assessment & Plan (1) Acute alcoholic hepatitis: Plan: Rising LFTs, coagulopathy, etc in the setting of heavy etoh consumption are c/w acute alcoholic hepatitis. MELD score is very high (>35), Madrey's Discriminant function score is very high, and patient has severe acidosis with BRITTA. Defer use of steroids to ICU attending. He is at high risk of further decompensation, hepatic encephalopathy, etoh withdrawal, etc. Prognosis is guarded. Cont supportive care, serial labs, trial of IV vitamin K, etc. Consider acute hepatitis profile, GI consult, portal vein dopplers to r/o PVT, and empiric rocephin although there is no definitive history of esophageal varices. I cannot find an old EGD in the medical record. Further, there is no clinical evidence of SBP. (2) BRITTA (acute kidney injury): Plan: Severe, with considerable oliguria. Appreciate nephrology consultation with Dr Espinal. BRITTA likely prerenal in etiology as he looks markedly intra-vascularly volume depleted (but does have excess ascites, etc). CT a/p without signs of obstructive uropathy. Urine Na is high which argues against HRS. Cont to provide gentle fluids; bicarbonate infusion initiated by Dr Conde, fence erector supervisor. In addition, albumin infusions with midodrine +/- pressors will be initiated to support his blood pressure and thereby improve renal perfusion. Although there was initially some concern for volatile organic substance ingestion (rubbing alcohol, etc) at this time it is unlikely. Fomepizole to be deferred for now. Cont serial BMP checks. Wang placed. (3) Hypotension: Plan: intravascular volume contraction at least 1 of the culprits decreased effective circulating volume in setting of acute liver injury/hepatitis likely also to blame; hence, IV albumin with midodrine begun by ICU attending pressors to be used to keep MAP>65 cortisol noted to be robust no evidence of cardiogenic shock septic shock unlikely IV fluids, IV albumin, midodrine, pressors to be utilized also considering octreotide per ICU attending (4) Acidosis: Plan: AGMA including lactic acidosis, acidosis from #2. Alcohol also playing a role. Lactic acid levels may be unreliable in the setting of his acute liver failure as the liver metabolizes lactate. Bicarb infusion initiated in ICU. Serial BMPs with blood gases. Initially it was felt that his osmolality gap was elevated but later felt to be corrected. To be complete methanol and ethylene glycol levels have been dispatched but likely to be normal. Again fomepizole to be deferred. Cont supportive care with serial labs. Appreciate nephrology & critical care consults. (5) High serum osmolar gap: Plan: see above discussion (6) Coagulopathy: Plan: 2nd to #1 worsening rapidly prognosis guarded trial of vitamin K supplementation this am - 5mg IV x 1 however, INR worsened further despite vitamin K arguing that the primary issue is acute hepatitis DIC panel dispatched as platelets are mildly low d-dimer elevated; fibrinogen is low; FDP is high; PTT is high suspect that DIC is not present - above labs more c/w acute liver injury/h epatitis, acute phase reactants (d-dimer), etc. continue serial coags of note -repeat CT a/p obtained to ensure no hemoperitoneum; this repeat study is more suggestive of ascites than blood (7) Abnormal LFTs: Plan: due to #1 above (8) Abnormal CT of the abdomen: Plan: initial concern for hemoperitoneum, possibly due to a liver laceration or other problem repeat CT a/p not suspicious for internal bleeding/hemoperitoneum/liver lac or other issue related to trauma (he fell at home) or from his coagulopathy (9) Acute metabolic encephalopathy: Plan: 2nd to etoh ingestion, severe acidosis, acute liver injury/hepatitis, BRITTA, etc. cannot rule out UTI (u/a somewhat suggestive) cannot rule out SBP but unlikely CT head neg for ICH or acute findings (10) Alcoholism: Plan: high risk of withdrawal institute appropriate meds as needed thiamine, folate supplementation (11) Dehydration: Plan: 2nd to poor oral intake at home provide IV fluids as above (12) (HFpEF) heart failure with preserved ejection fraction: Plan: ascites, etc is due to his liver and kidney issues rather than HFpEF (13) Anasarca: (14) Conjunctivitis: Plan: left eye erythromycin eye ointment BID (15) Hypoglycemia: Plan: likely due to inadequate hepatic gluconeogenesis in the setting of acute hepatitis also he has poor muscle reserve from chronic malnutrition and thus less stores of glycogen stress of illness to blame as well added dextrose to IV fluids serial BSGs Plan updated pt's daughter, Judy, extensively today after I saw patient, placed orders for repeat CT, placed numerous blood orders, gave fluid bolus, etc I then discussed Mr Amin's care with d/w Dr Conde from ICU team patient then accepted to ICU and transferred shortly thereafter total critical care time due to management of multi-organ failure in this critically ill gentleman -- 70 minutes Admission and Anticipated Discharge Date Admission Date: April 28, 2022 Subjective chart reviewed in detail during rounds the patient was asleep he did arouse to his name being called he thought he was in "[facility]" he denied any abd pain, chest pain, or dyspnea he states he drinks Tequila when asked if he drank any other form of alcohol such as rubbing alcohol he denied such it was difficult to get additional history from him as he was very sleepy Review of Systems Review of Systems: neuro - denied any headache cv - denied cp GI - denied vomiting - condom cath in place gen - no fevers HENT - denied recent URI Physical Exam Physical Exam: gen - very ill-appearing, altered, disheveled, dehydrated eyes - PERRL; left eye with copious matting, conjunctival injection, and purulent discharge mouth - severely dry MM; ?thrush plaques on buccal mucosa; breath smells of alcohol neck - no JVD heart - RRR, s1 s2 lungs - CTA b/l abd - markedly distended, nontender, liver edge palpable, BS+ but decreased, no peritoneal signs skin - negative richmond-murillo's sign; abrasion/skin tear right power; scattered abrasions other locations b/l legs ext - no edema, pulses 1+ b/l, cool to touch neuro - strength 5/5 x 4 exts; no facial droop Results & Data Results & Data Vital Signs (Past 12 Hours) Vital Signs Temp Pulse Pulse Resp BP BP Pulse Ox 04/29/22 07:42 36.9 C 95 H 18 86/55 L 98 04/29/22 04:34 04/29/22 03:53 36.8 C 85 15 104/76 96 04/29/22 03:00 92 H 18 103/81 99 04/29/22 01:00 98 H 20 108/61 97 04/29/22 00:00 93 H 19 117/57 L 98 04/28/22 22:53 91 H 22 94/67 L 98 04/28/22 21:23 95 H 20 101/69 99 O2 Del Method O2 Flow Rate 04/29/22 07:42 Nasal Cannula 3 04/29/22 04:34 Nasal Cannula 3 04/29/22 03:53 Nasal Cannula 3 04/29/22 03:00 Nasal Cannula 3 04/29/22 01:00 Nasal Cannula 3 04/29/22 00:00 Nasal Cannula 3 04/28/22 22:53 Nasal Cannula 2 04/28/22 21:23 Room Air Laboratory Results Laboratory Results - last 24 hr 04/29/22 04/29/22 04/29/22 02:22 03:25 03:25 WBC RBC Hgb Hct MCV MCH MCHC RDW Std Deviation RDW Coeff of Juan Plt Count MPV Immature Gran % (Auto) Neut % (Auto) Lymph % (Auto) [place] % (Auto) Eos % (Auto) Baso % (Auto) Neut # (Auto) Lymph # (Auto) [place] # (Auto) Eos # (Auto) Baso # (Auto) Immature Gran # (Auto) PT INR APTT PTT Ratio Fibrinogen Fibrin Degrad Products D-Dimer ABG pH ABG pCO2 ABG pO2 ABG HCO3 ABG O2 Saturation ABG Base Excess Sheng Test Oxygen Given Sodium 140 Potassium 3.9 D Chloride 95 L Carbon Dioxide 12 L Anion Gap 33 H BUN 17 Creatinine 4.05 H Est Cr Clr Drug Dosing 14.3 Est GFR ( Amer) 15.2 Est GFR (Non-Af Amer) 13.1 BUN/Creatinine Ratio 4.2 L Glucose 44 L* POC Glucose Osmolality Lactate Calcium 7.6 L Magnesium Total Bilirubin Direct Bilirubin AST ALT Alkaline Phosphatase Total Creatine Kinase Total Protein Albumin Globulin Albumin/Globulin Ratio Random Cortisol Urine Color Brown Urine Appearance Cloudy A Urine pH 5.0 Ur Specific [place] 1.020 Urine Protein 3+ H Urine Glucose (UA) Trace H Urine Ketones 1+ H Urine Blood 1+ H Urine Nitrite Positive A Urine Bilirubin 3+ H Urine Urobilinogen Positive H Ur Leukocyte Esterase 3+ H Urine WBC (Auto) Urine RBC (Auto) U Hyaline Cast (Auto) U Epithel Cells (Auto) Urine Bacteria (Auto) Urine RBC 0-4 Urine WBC >30 H Ur Epithelial Cells 0-5 Ur Renal Epithelial Cell Urine Bacteria 2+ H Ur Random Creatinine Ur Random Sodium Urine Opiates Screen Neg Ur Methadone, Qual Neg Urine Barbiturates Neg Ur Phencyclidine (PCP) Neg U Amphetamin/Meth Scrn Neg MDMA (Ecstasy) Screen Neg U Benzodiazepines Scrn Neg Ur Cocaine Metabolite Neg U Marijuana (THC) Screen Neg Ethylene Glycol Volat Analys Perform On Methyl Alcohol Level 04/29/22 04/29/22 04/29/22 05:38 05:51 05:51 WBC 12.14 H RBC 2.62 L Hgb 9.3 L Hct 26.9 L MCV 102.7 H MCH 35.5 H MCHC 34.6 RDW Std Deviation 70.8 H RDW Coeff of Juan 19.8 H Plt Count 102 L MPV 11.1 Immature Gran % (Auto) 0.4 Neut % (Auto) 83.7 Lymph % (Auto) 6.3 [place] % (Auto) 9.5 Eos % (Auto) 0.0 Baso % (Auto) 0.1 Neut # (Auto) 10.16 H Lymph # (Auto) 0.77 L [place] # (Auto) 1.15 H Eos # (Auto) 0.00 Baso # (Auto) 0.01 Immature Gran # (Auto) 0.05 PT INR APTT PTT Ratio Fibrinogen Fibrin Degrad Products D-Dimer ABG pH ABG pCO2 ABG pO2 ABG HCO3 ABG O2 Saturation ABG Base Excess Sheng Test Oxygen Given Sodium 139 Potassium 3.7 Chloride 92 L Carbon Dioxide 16 L Anion Gap 31 H BUN 17 Creatinine 4.08 H Est Cr Clr Drug Dosing 14.2 Est GFR ( Amer) 15.1 Est GFR (Non-Af Amer) 13.0 BUN/Creatinine Ratio 4.2 L Glucose 97 POC Glucose 123 H Osmolality Lactate Calcium 7.5 L Magnesium 1.8 Total Bilirubin 5.8 H Direct Bilirubin AST 419 H ALT 81 H Alkaline Phosphatase 160 H Total Creatine Kinase Total Protein 5.9 L D Albumin 2.3 L Globulin 3.6 Albumin/Globulin Ratio 0.6 L Random Cortisol Urine Color Urine Appearance Urine pH Ur Specific [place] Urine Protein Urine Glucose (UA) Urine Ketones Urine Blood Urine Nitrite Urine Bilirubin Urine Urobilinogen Ur Leukocyte Esterase Urine WBC (Auto) Urine RBC (Auto) U Hyaline Cast (Auto) U Epithel Cells (Auto) Urine Bacteria (Auto) Urine RBC Urine WBC Ur Epithelial Cells Ur Renal Epithelial Cell Urine Bacteria Ur Random Creatinine Ur Random Sodium Urine Opiates Screen Ur Methadone, Qual Urine Barbiturates Ur Phencyclidine (PCP) U Amphetamin/Meth Scrn MDMA (Ecstasy) Screen U Benzodiazepines Scrn Ur Cocaine Metabolite U Marijuana (THC) Screen Ethylene Glycol Volat Analys Perform On Methyl Alcohol Level 04/29/22 04/29/22 04/29/22 05:51 08:25 08:25 WBC RBC Hgb Hct MCV MCH MCHC RDW Std Deviation RDW Coeff of Juan Plt Count MPV Immature Gran % (Auto) Neut % (Auto) Lymph % (Auto) [place] % (Auto) Eos % (Auto) Baso % (Auto) Neut # (Auto) Lymph # (Auto) [place] # (Auto) Eos # (Auto) Baso # (Auto) Immature Gran # (Auto) PT 20.3 H INR 2.0 H APTT 44.2 H PTT Ratio 1.6 Fibrinogen Fibrin Degrad Products D-Dimer ABG pH ABG pCO2 ABG pO2 ABG HCO3 ABG O2 Saturation ABG Base Excess Sheng Test Oxygen Given Sodium 139 Potassium 3.5 Chloride 92 L Carbon Dioxide 16 L Anion Gap 31 H BUN 17 Creatinine 4.19 H Est Cr Clr Drug Dosing 13.8 Est GFR ( Amer) 14.6 Est GFR (Non-Af Amer) 12.6 BUN/Creatinine Ratio 4.1 L Glucose 62 L POC Glucose Osmolality Lactate Calcium 7.4 L Magnesium Total Bilirubin Direct Bilirubin AST ALT Alkaline Phosphatase Total Creatine Kinase Total Protein Albumin Globulin Albumin/Globulin Ratio Random Cortisol 40.32 Urine Color Urine Appearance Urine pH Ur Specific [place] Urine Protein Urine Glucose (UA) Urine Ketones Urine Blood Urine Nitrite Urine Bilirubin Urine Urobilinogen Ur Leukocyte Esterase Urine WBC (Auto) Urine RBC (Auto) U Hyaline Cast (Auto) U Epithel Cells (Auto) Urine Bacteria (Auto) Urine RBC Urine WBC Ur Epithelial Cells Ur Renal Epithelial Cell Urine Bacteria Ur Random Creatinine Ur Random Sodium Urine Opiates Screen Ur Methadone, Qual Urine Barbiturates Ur Phencyclidine (PCP) U Amphetamin/Meth Scrn MDMA (Ecstasy) Screen U Benzodiazepines Scrn Ur Cocaine Metabolite U Marijuana (THC) Screen Ethylene Glycol Volat Analys Perform On Methyl Alcohol Level 04/29/22 04/29/22 04/29/22 08:25 08:25 08:25 WBC RBC Hgb Hct MCV MCH MCHC RDW Std Deviation RDW Coeff of Juan Plt Count MPV Immature Gran % (Auto) Neut % (Auto) Lymph % (Auto) [place] % (Auto) Eos % (Auto) Baso % (Auto) Neut # (Auto) Lymph # (Auto) [place] # (Auto) Eos # (Auto) Baso # (Auto) Immature Gran # (Auto) PT INR APTT PTT Ratio Fibrinogen Fibrin Degrad Products D-Dimer ABG pH ABG pCO2 ABG pO2 ABG HCO3 ABG O2 Saturation ABG Base Excess Sheng Test Oxygen Given Sodium Potassium Chloride Carbon Dioxide Anion Gap BUN Creatinine Est Cr Clr Drug Dosing Est GFR ( Amer) Est GFR (Non-Af Amer) BUN/Creatinine Ratio Glucose POC Glucose Osmolality 310 H Lactate Calcium Magnesium Total Bilirubin Direct Bilirubin AST ALT Alkaline Phosphatase Total Creatine Kinase Total Protein Albumin Globulin Albumin/Globulin Ratio Random Cortisol Urine Color Urine Appearance Urine pH Ur Specific [place] Urine Protein Urine Glucose (UA) Urine Ketones Urine Blood Urine Nitrite Urine Bilirubin Urine Urobilinogen Ur Leukocyte Esterase Urine WBC (Auto) Urine RBC (Auto) U Hyaline Cast (Auto) U Epithel Cells (Auto) Urine Bacteria (Auto) Urine RBC Urine WBC Ur Epithelial Cells Ur Renal Epithelial Cell Urine Bacteria Ur Random Creatinine Ur Random Sodium Urine Opiates Screen Ur Methadone, Qual Urine Barbiturates Ur Phencyclidine (PCP) U Amphetamin/Meth Scrn MDMA (Ecstasy) Screen U Benzodiazepines Scrn Ur Cocaine Metabolite U Marijuana (THC) Screen Ethylene Glycol Pending Volat Analys Perform On Pending Methyl Alcohol Level Pending 04/29/22 04/29/22 04/29/22 08:25 08:25 08:25 WBC RBC Hgb Hct MCV MCH MCHC RDW Std Deviation RDW Coeff of Juan Plt Count MPV Immature Gran % (Auto) Neut % (Auto) Lymph % (Auto) [place] % (Auto) Eos % (Auto) Baso % (Auto) Neut # (Auto) Lymph # (Auto) [place] # (Auto) Eos # (Auto) Baso # (Auto) Immature Gran # (Auto) PT INR APTT PTT Ratio Fibrinogen 111 L Fibrin Degrad Products >40 H D-Dimer 6150 H* ABG pH 7.33 L ABG pCO2 25 L ABG pO2 105 H ABG HCO3 13 L ABG O2 Saturation 98.5 H ABG Base Excess -11.3 L Sheng Test Pos Oxygen Given 3L Sodium Potassium Chloride Carbon Dioxide Anion Gap BUN Creatinine Est Cr Clr Drug Dosing Est GFR ( Amer) Est GFR (Non-Af Amer) BUN/Creatinine Ratio Glucose POC Glucose Osmolality Lactate Calcium Magnesium Total Bilirubin Direct Bilirubin AST ALT Alkaline Phosphatase Total Creatine Kinase Total Protein Albumin Globulin Albumin/Globulin Ratio Random Cortisol Urine Color Urine Appearance Urine pH Ur Specific [place] Urine Protein Urine Glucose (UA) Urine Ketones Urine Blood Urine Nitrite Urine Bilirubin Urine Urobilinogen Ur Leukocyte Esterase Urine WBC (Auto) Urine RBC (Auto) U Hyaline Cast (Auto) U Epithel Cells (Auto) Urine Bacteria (Auto) Urine RBC Urine WBC Ur Epithelial Cells Ur Renal Epithelial Cell Urine Bacteria Ur Random Creatinine Ur Random Sodium Urine Opiates Screen Ur Methadone, Qual Urine Barbiturates Ur Phencyclidine (PCP) U Amphetamin/Meth Scrn MDMA (Ecstasy) Screen U Benzodiazepines Scrn Ur Cocaine Metabolite U Marijuana (THC) Screen Ethylene Glycol Volat Analys Perform On Methyl Alcohol Level 04/29/22 04/29/22 04/29/22 08:25 08:25 12:55 WBC RBC Hgb Hct MCV MCH MCHC RDW Std Deviation RDW Coeff of Juan Plt Count MPV Immature Gran % (Auto) Neut % (Auto) Lymph % (Auto) [place] % (Auto) Eos % (Auto) Baso % (Auto) Neut # (Auto) Lymph # (Auto) [place] # (Auto) Eos # (Auto) Baso # (Auto) Immature Gran # (Auto) PT INR APTT PTT Ratio Fibrinogen Fibrin Degrad Products D-Dimer ABG pH ABG pCO2 ABG pO2 ABG HCO3 ABG O2 Saturation ABG Base Excess Sheng Test Oxygen Given Sodium 140 Potassium 3.4 L Chloride 91 L Carbon Dioxide 15 L Anion Gap 34 H BUN 17 Creatinine 4.01 H Est Cr Clr Drug Dosing 14.5 Est GFR ( Amer) 15.4 Est GFR (Non-Af Amer) 13.3 BUN/Creatinine Ratio 4.2 L Glucose 43 L* POC Glucose Osmolality Lactate > 17.0 H* Calcium 7.4 L Magnesium Total Bilirubin Direct Bilirubin AST ALT Alkaline Phosphatase Total Creatine Kinase 288 H Total Protein Albumin Globulin Albumin/Globulin Ratio Random Cortisol Urine Color Urine Appearance Urine pH Ur Specific [place] Urine Protein Urine Glucose (UA) Urine Ketones Urine Blood Urine Nitrite Urine Bilirubin Urine Urobilinogen Ur Leukocyte Esterase Urine WBC (Auto) Urine RBC (Auto) U Hyaline Cast (Auto) U Epithel Cells (Auto) Urine Bacteria (Auto) Urine RBC Urine WBC Ur Epithelial Cells Ur Renal Epithelial Cell Urine Bacteria Ur Random Creatinine Ur Random Sodium Urine Opiates Screen Ur Methadone, Qual Urine Barbiturates Ur Phencyclidine (PCP) U Amphetamin/Meth Scrn MDMA (Ecstasy) Screen U Benzodiazepines Scrn Ur Cocaine Metabolite U Marijuana (THC) Screen Ethylene Glycol Volat Analys Perform On Methyl Alcohol Level 04/29/22 04/29/22 04/29/22 13:57 14:21 14:24 WBC RBC Hgb Hct MCV MCH MCHC RDW Std Deviation RDW Coeff of Juan Plt Count MPV Immature Gran % (Auto) Neut % (Auto) Lymph % (Auto) [place] % (Auto) Eos % (Auto) Baso % (Auto) Neut # (Auto) Lymph # (Auto) [place] # (Auto) Eos # (Auto) Baso # (Auto) Immature Gran # (Auto) PT INR APTT PTT Ratio Fibrinogen Fibrin Degrad Products D-Dimer ABG pH ABG pCO2 ABG pO2 ABG HCO3 ABG O2 Saturation ABG Base Excess Sheng Test Oxygen Given Sodium Potassium Chloride Carbon Dioxide Anion Gap BUN Creatinine Est Cr Clr Drug Dosing Est GFR ( Amer) Est GFR (Non-Af Amer) BUN/Creatinine Ratio Glucose POC Glucose 46 L* 54 L* 54 L* Osmolality Lactate Calcium Magnesium Total Bilirubin Direct Bilirubin AST ALT Alkaline Phosphatase Total Creatine Kinase Total Protein Albumin Globulin Albumin/Globulin Ratio Random Cortisol Urine Color Urine Appearance Urine pH Ur Specific [place] Urine Protein Urine Glucose (UA) Urine Ketones Urine Blood Urine Nitrite Urine Bilirubin Urine Urobilinogen Ur Leukocyte Esterase Urine WBC (Auto) Urine RBC (Auto) U Hyaline Cast (Auto) U Epithel Cells (Auto) Urine Bacteria (Auto) Urine RBC Urine WBC Ur Epithelial Cells Ur Renal Epithelial Cell Urine Bacteria Ur Random Creatinine Ur Random Sodium Urine Opiates Screen Ur Methadone, Qual Urine Barbiturates Ur Phencyclidine (PCP) U Amphetamin/Meth Scrn MDMA (Ecstasy) Screen U Benzodiazepines Scrn Ur Cocaine Metabolite U Marijuana (THC) Screen Ethylene Glycol Volat Analys Perform On Methyl Alcohol Level 04/29/22 04/29/22 04/29/22 14:51 17:51 20:07 WBC RBC Hgb Hct MCV MCH MCHC RDW Std Deviation RDW Coeff of Juan Plt Count MPV Immature Gran % (Auto) Neut % (Auto) Lymph % (Auto) [place] % (Auto) Eos % (Auto) Baso % (Auto) Neut # (Auto) Lymph # (Auto) [place] # (Auto) Eos # (Auto) Baso # (Auto) Immature Gran # (Auto) PT INR APTT PTT Ratio Fibrinogen Fibrin Degrad Products D-Dimer ABG pH ABG pCO2 ABG pO2 ABG HCO3 ABG O2 Saturation ABG Base Excess Sheng Test Oxygen Given Sodium 140 Potassium 3.6 Chloride 92 L Carbon Dioxide 17 L Anion Gap 31 H BUN 18 Creatinine 4.49 H D Est Cr Clr Drug Dosing 12.9 Est GFR ( Amer) 13.4 Est GFR (Non-Af Amer) 11.6 BUN/Creatinine Ratio 4.0 L Glucose 139 H POC Glucose 114 H 129 H Osmolality Lactate Calcium 7.8 L Magnesium Total Bilirubin 7.6 H Direct Bilirubin 4.1 H AST 605 H ALT 109 H Alkaline Phosphatase 145 H Total Creatine Kinase Total Protein 6.4 Albumin 2.9 L Globulin Albumin/Globulin Ratio Random Cortisol Urine Color Urine Appearance Urine pH Ur Specific [place] Urine Protein Urine Glucose (UA) Urine Ketones Urine Blood Urine Nitrite Urine Bilirubin Urine Urobilinogen Ur Leukocyte Esterase Urine WBC (Auto) Urine RBC (Auto) U Hyaline Cast (Auto) U Epithel Cells (Auto) Urine Bacteria (Auto) Urine RBC Urine WBC Ur Epithelial Cells Ur Renal Epithelial Cell Urine Bacteria Ur Random Creatinine Ur Random Sodium Urine Opiates Screen Ur Methadone, Qual Urine Barbiturates Ur Phencyclidine (PCP) U Amphetamin/Meth Scrn MDMA (Ecstasy) Screen U Benzodiazepines Scrn Ur Cocaine Metabolite U Marijuana (THC) Screen Ethylene Glycol Volat Analys Perform On Methyl Alcohol Level 04/29/22 04/29/22 04/29/22 20:07 20:10 21:56 WBC RBC Hgb Hct MCV MCH MCHC RDW Std Deviation RDW Coeff of Juan Plt Count MPV Immature Gran % (Auto) Neut % (Auto) Lymph % (Auto) [place] % (Auto) Eos % (Auto) Baso % (Auto) Neut # (Auto) Lymph # (Auto) [place] # (Auto) Eos # (Auto) Baso # (Auto) Immature Gran # (Auto) PT 26.7 H INR 2.6 H APTT PTT Ratio Fibrinogen Fibrin Degrad Products D-Dimer ABG pH ABG pCO2 ABG pO2 ABG HCO3 ABG O2 Saturation ABG Base Excess Sheng Test Oxygen Given Sodium Potassium Chloride Carbon Dioxide Anion Gap BUN Creatinine Est Cr Clr Drug Dosing Est GFR ( Amer) Est GFR (Non-Af Amer) BUN/Creatinine Ratio Glucose POC Glucose Osmolality Lactate > 17.0 H* Calcium Magnesium Total Bilirubin Direct Bilirubin AST ALT Alkaline Phosphatase Total Creatine Kinase Total Protein Albumin Globulin Albumin/Globulin Ratio Random Cortisol Urine Color Yellow Urine Appearance Cloudy A Urine pH 5.5 Ur Specific [place] 1.007 Urine Protein 1+ H Urine Glucose (UA) Negative Urine Ketones Negative Urine Blood 3+ H Urine Nitrite Negative Urine Bilirubin Negative Urine Urobilinogen Negative Ur Leukocyte Esterase 2+ H Urine WBC (Auto) 10-30 H Urine RBC (Auto) 5-10 H U Hyaline Cast (Auto) 1-5 U Epithel Cells (Auto) >30 H Urine Bacteria (Auto) Negative Urine RBC Urine WBC Ur Epithelial Cells Ur Renal Epithelial Cell 0-5 Urine Bacteria Ur Random Creatinine Ur Random Sodium Urine Opiates Screen Ur Methadone, Qual Urine Barbiturates Ur Phencyclidine (PCP) U Amphetamin/Meth Scrn MDMA (Ecstasy) Screen U Benzodiazepines Scrn Ur Cocaine Metabolite U Marijuana (THC) Screen Ethylene Glycol Volat Analys Perform On Methyl Alcohol Level 04/29/22 Unknown WBC RBC Hgb Hct MCV MCH MCHC RDW Std Deviation RDW Coeff of Juan Plt Count MPV Immature Gran % (Auto) Neut % (Auto) Lymph % (Auto) [place] % (Auto) Eos % (Auto) Baso % (Auto) Neut # (Auto) Lymph # (Auto) [place] # (Auto) Eos # (Auto) Baso # (Auto) Immature Gran # (Auto) PT INR APTT PTT Ratio Fibrinogen Fibrin Degrad Products D-Dimer ABG pH ABG pCO2 ABG pO2 ABG HCO3 ABG O2 Saturation ABG Base Excess Sheng Test Oxygen Given Sodium Potassium Chloride Carbon Dioxide Anion Gap BUN Creatinine Est Cr Clr Drug Dosing Est GFR ( Amer) Est GFR (Non-Af Amer) BUN/Creatinine Ratio Glucose POC Glucose Osmolality Lactate Calcium Magnesium Total Bilirubin Direct Bilirubin AST ALT Alkaline Phosphatase Total Creatine Kinase Total Protein Albumin Globulin Albumin/Globulin Ratio Random Cortisol Urine Color Urine Appearance Urine pH Ur Specific [place] Urine Protein Urine Glucose (UA) Urine Ketones Urine Blood Urine Nitrite Urine Bilirubin Urine Urobilinogen Ur Leukocyte Esterase Urine WBC (Auto) Urine RBC (Auto) U Hyaline Cast (Auto) U Epithel Cells (Auto) Urine Bacteria (Auto) Urine RBC Urine WBC Ur Epithelial Cells Ur Renal Epithelial Cell Urine Bacteria Ur Random Creatinine 12.1 Ur Random Sodium 146 Urine Opiates Screen Ur Methadone, Qual Urine Barbiturates Ur Phencyclidine (PCP) U Amphetamin/Meth Scrn MDMA (Ecstasy) Screen U Benzodiazepines Scrn Ur Cocaine Metabolite U Marijuana (THC) Screen Ethylene Glycol Volat Analys Perform On Methyl Alcohol Level Diagnostic Findings repeat CT abd/pelvis 04/29: FINDINGS: Small bilateral pleural effusions have slightly increased since CT of April 28, 2022. Marked elevation of the right hemidiaphragm is again noted. No acute fractures are identified within visualized portions of the ribs. There is mild cardiomegaly. Severe hepatic steatosis is again noted. Right hepatic dome cyst is present. 2 right hepatic lobe lesions measure up to 2.5 cm. These are indeterminate. The appearance of the liver is unchanged. The liver appears somewhat diminutive. The findings favor cirrhosis. Size of the spleen is normal. Moderate abdominal and pelvic ascites is noted. The fluid measures near water attenuation. The amount of fluid is unchanged since prior CT. No definite hemorrhage is present. A Wang balloon within the bladder is noted. Adrenal glands, kidneys and pancreas are unremarkable. Dilatation of the proximal celiac axis, measuring 1.8 cm is unchanged. Evaluation of the abdomen and pelvis is suboptimal on this unenhanced exam. Large and small bowel wall thickening is similar to prior exam. There is no evidence for a bowel obstruction. Mesenteric stranding is unchanged. There is anasarca. No fluid collection is identified to suggest an abscess. No pneumatosis, free air or portal venous gas is present. Left inguinal hernia contains a portion of the sigmoid colon. This does not result in a bowel obstruction. IMPRESSION: 1. Moderate fluid within the abdomen and pelvis, unchanged since CT of April 28, 2022. This favors ascites. Apparent increased attenuation within portions of this fluid is likely artifactual. Hemoperitoneum is considered less likely but would be difficult to completely exclude. 2. Severe hepatic steatosis with possible cirrhosis. The findings may indicate acute liver injury. Two indeterminate right hepatic lobe lesions which can be assessed on follow-up exams. 3. Slight increase in small bilateral pleural effusions. 4. No change in small and large bowel wall thickening. This could be due to the patient's diffuse edematous state or represent a nonspecific enterocolitis. 5. Anasarca. 6. No bowel obstruction. PG Care Time/CCT Total # of Minutes Spent Total Time Spent with Patient: Total time spent is greater than 50% in coordination of care (as documented) at patient's floor/unit and/or counseling patient: Critical Care Time: Yes Total Critical Care Time: 70 Coding Level of Care Code None Diagnoses Acute alcoholic hepatitis K70.10 BRITTA (acute kidney injury) N17.9 Hypotension I95.9 Acidosis E87.20 High serum osmolar gap R74.8 Coagulopathy D68.9 Abnormal LFTs R79.[address] of the abdomen R93.5 Acute metabolic encephalopathy G93.41 Alcoholism F10.20 Dehydration E86.0 (HFpEF) heart failure with preserved ejection fraction I50.30 Anasarca R60.1 Conjunctivitis H10.9 Hypoglycemia E16.2 Additional Codes Critical Care Time - Critical Care Time: Yes ([id number])
[2022-04-29] MEDS ORDERED: THIAMINE HCL 100 MG in SYRINGE 9 ML IV SCH ×2 (09:00→21:00)
[2022-04-29] MEDS ORDERED: FOLIC ACID 1 MG in SYRINGE 9.8 ML IV SCH (09:00)
[2022-04-29 09:03] LABS: Base Excess ABG -11.3 mEq/L (-9-1.8); HCO3 ABG 13 mmol/L (19-24); Oxygen Saturation ABG 98.5 % (90-95); PCO2 ABG 25 mmHg (35-46); PO2 ABG 105 mmHg (80-95); pH ABG 7.33 (7.35-7.45)
[2022-04-29 09:06] LABS: Allen Test Pos (Pos)
[2022-04-29 09:38] LABS: Fibrinogen 111 mg/dl (184-400)
[2022-04-29 09:40] LABS: D Dimer 6150 ug/L FEU (0-500)
[2022-04-29 09:44] LABS: Calcium 7.4 mg/dl (8.5-10.1); Potassium 3.5 mmol/L (3.5-5.1)
[2022-04-29 09:50] LABS: BUN Creatinine Ratio 4.1 (10-20); Creatinine Clr Calc Pharmacy 13.8 ml/min; Est GFR (African American) 14.6 ml/min; Est GFR (Non-African American) 12.6 ml/min
--- NOTE | 2022-04-29 09:54 | CT Scan Report ---
CT OF THE ABDOMEN AND PELVIS WITHOUT CONTRAST CLINICAL HISTORY: ?hemoperitoneum, abdominal distension. COMPARISON STUDY: CT of the abdomen and pelvis April 28, 2022 and May 26, 2021. TECHNIQUE: Axial images of the abdomen and pelvis were obtained without IV contrast. Images were revi ewed in the axial, sagittal, and coronal planes. Automated exposure control was utilized for the tobias dy. A dose lowering technique was utilized adhering to the principles of ALARA. FINDINGS: Small bilateral pleural effusions have slightly increased since CT of April 28, 2022. Marke d elevation of the right hemidiaphragm is again noted. No acute fractures are identified within visua lized portions of the ribs. There is mild cardiomegaly. Severe hepatic steatosis is again noted. Righ t hepatic dome cyst is present. 2 right hepatic lobe lesions measure up to 2.5 cm. These are indeterm inate. The appearance of the liver is unchanged. The liver appears somewhat diminutive. The findings favor cirrhosis. Size of the spleen is normal. Moderate abdominal and pelvic ascites is noted. The fl uid measures near water attenuation. The amount of fluid is unchanged since prior CT. No definite hem orrhage is present. A Wang balloon within the bladder is noted. Adrenal glands, kidneys and pancreas are unremarkable. Dilatation of the proximal celiac axis, measuring 1.8 cm is unchanged. Evaluation of the abdomen and pelvis is suboptimal on this unenhanced exam. Large and small bowel wall thickenin g is similar to prior exam. There is no evidence for a bowel obstruction. Mesenteric stranding is unc hanged. There is anasarca. No fluid collection is identified to suggest an abscess. No pneumatosis, f ree air or portal venous gas is present. Left inguinal hernia contains a portion of the sigmoid colon . This does not result in a bowel obstruction. IMPRESSION: 1. Moderate fluid within the abdomen and pelvis, unchanged since CT of April 28, 2022. This favors as cites. Apparent increased attenuation within portions of this fluid is likely artifactual. Hemoperito neum is considered less likely but would be difficult to completely exclude. 2. Severe hepatic steatosis with possible cirrhosis. The findings may indicate acute liver injury. Tw o indeterminate right hepatic lobe lesions which can be assessed on follow-up exams. 3. Slight increase in small bilateral pleural effusions. 4. No change in small and large bowel wall thickening. This could be due to the patient's diffuse rocio matous state or represent a nonspecific enterocolitis. 5. Anasarca. 6. No bowel obstruction. ACT 112: Negative or not required by law. Electronically signed by: Eugene Hillman M.D. 04/29/2022 9:52 AM
[2022-04-29] MEDS ORDERED: SODIUM BICARBONATE 8.4% INJ 50 MEQ/50 ML VIAL IV ONE (10:15)
[2022-04-29] MEDS ORDERED: MULTI VIT W/MINERALS LIQUID 15 ML UDP PO SCH (10:15)
--- NOTE | 2022-04-29 10:20 | Critical Care Consultation ---
Date of Consultation April 29, 2022 Assessment & Plan (1) Acidosis: (2) Acute metabolic encephalopathy: (3) Coagulopathy: (4) (HFpEF) heart failure with preserved ejection fraction: (5) Acute kidney injury: (6) Alcoholism: Plan Impression: 77-year-old alcoholic male presenting with acute alcohol intoxication, acute renal failure, and altered mental status. His mental status is improving. There is initial concern about possible ingestion of a volatile alcohol however his osmolar gap appears to have cleared. He is in acute renal failure. Recommendations: 1. Neurologic: Continue to monitor at this point time. The patient is at risk for alcohol withdrawal. Continue high-dose thiamine and folate. Ativan as needed. 2. Cardiovascular: Hypotension of unclear etiology. Patient will continue with aggressive volume expansion. We will give additional 50 g of albumin and start on 25 g of albumin Q8. Continue volume expansion. Will place on Shiraz-Synephrine to try and achieve adequate mean arterial pressure. We will also place the patient on midodrine 10 mg 3 times a day. Lactate is elevated but it is unclear how much of this could be related to the patient's hypotension versus inability to clear lactate due to hepatic metabolism being impaired. We will trend over time. Will defer central line at this point time in hopes that the midodrine, volume expansion, and peripheral Shiraz-Synephrine can optimize the patient's pressure. 3. Pulmonary: Small pleural effusions identified on imaging studies. Continue to follow. Oxygen as needed. 4. Renal: Acute renal failure. Discussed with nephrology. Check urine sodium and urine creatinine. We will try and optimize pressures and volume status. If fails to improve in the next 24 hours consideration for subcutaneous octreotide may be appropriate. Patient does have evidence of metabolic acidosis, see comments above. We will place on bicarb infusion to optimize serum bicarbonate. With his negative osmolar gap, do not see evidence of volatile alcohol ingestion. No indication for fomepizole currently. 5. GI: Acute liver failure secondary to acute alcohol and chronic alcohol ingestion. Bedside ultrasound did not demonstrate any significant ascites accessible for paracentesis. We will follow coagulation panel. May need hepatology input should the patient clinically deteriorate. We will trend ammonia levels. Patient is not a candidate for liver transplant due to ongoing alcohol use and advanced age as well as compliance issues. MELD score of 34 consistent with poor prognosis over the next 90 days especially if the patient continues his alcohol consumption. 6. ID: At risk for development of spontaneous bacterial peritonitis but again fluid is not accessible for paracentesis currently. We will continue to follow clinically. 7. Endocrine: Glycemic control per protocol. Patient did have low sugar before so we will place on D5 infusions and follow. If hypoglycemia becomes problematic, the dextrose to be taken out of his IV fluids. 8. Heme-onc: Mild anemia. No indication for transfusion currently. His INR is elevated due to alcoholic coagulopathy. May consider FFP in the future. Patient demonstrates multiorgan system dysfunction. He has significant possibility of clinical deterioration and or . He is critically ill. A total of 45 minutes of critical care time was spent evaluation management stabilization of this patient. We will observe in the ICU for now. History of Present Illness Attending Physician: Deniz Chacon History of Present Illness Asked by hospitalist to assist in evaluation and management this patient with acute renal failure, acute alcohol intoxication, and anion gap acidosis. History is obtained from review electronic medical record and discussion with the patient although the patient's provided history is sparse and not completely coherent. Patient is a 77-year-old male with a history of heavy alcohol abuse. There is a history of heart failure with preserved ejection fraction. He has had issues with recurrent alcohol intoxication. He presented to the emergency room yesterday at the request of her exercise rider due to altered mental status. The patient apparently had a ground-level fall. He was acutely intoxicated. He was admitted to the hospitalist service with a diagnosis of altered mental status and acute alcohol injury. There was suspicion for Warnicke's encephalopathy. He received IV multivitamin thiamine and folate. He was admitted to the floor. CT abdomen showed perihepatic ascites with questionable hemoperitoneum. This morning, hospitalist was concerned about his mental status as well as his osmolar gap and requested to be transferred to the ICU. I assessed the patient on arrival to the ICU. He is awake alert and conversing. He denies any localizing symptoms. I did perform abdominal ultrasound on arrival which does not reveal any significant ascites amenable to paracentesis. His initial osmolar gap on presentation was elevated around 14 but recalculation this morning reveals his osmole gap to be -14 Allergies Allergy/AdvReac Type Severity Reaction Status Date / Time No Known Allergies Allergy Verified 04/28/22 19:22 Home Medications Medication Instructions Recorded Confirmed Type folic acid 1 mg tablet 1 mg PO QAM #30 tabs 03/16/22 04/28/22 Rx furosemide 20 mg tablet (Lasix) 20 mg PO DAILY PRN edema #120 tabs 03/29/22 04/28/22 Rx potassium chloride 20 mEq 20 meq PO DAILY #120 tabs 03/29/22 04/28/22 Rx tablet,extended release magnesium oxide 400 mg PO DAILY #60 tabs 03/30/22 04/28/22 Rx Patient History Medical History (Updated 04/29/22 @ 10:40 by Cal Conde MD) Alcohol use disorder in remission Alcoholism Anemia Arteriosclerosis of carotid artery Celiac artery aneurysm Diverticulosis Dyslipidemia Erectile dysfunction Gait disorder, alcoholic Hypertension Hypomagnesemia Internal hemorrhoids Tubular adenoma of colon Surgical History H/O hernia repair abdominal hernia repair with mesh (2002); hospital in [facility] H/O tooth extraction Family History Mother Dementia Father Stroke Grandfather (Maternal) Heart disease Denies family history of Ovarian cancer Prostate cancer Myocardial infarction Breast cancer Lung cancer Pulmonary embolism Cancer Social History Smoking Status: Unknown if ever smoked Tobacco Type: Cigarettes Second Hand Exposure: No; Hx Alcohol Use: Yes Alcohol type: beer and hard liquor Alcohol Intake Frequency: 4 or More x per/Week Hx Substance Use: Yes Preferred Language: Nepali Communication Ability: Effective Visual Impairment: No Limitations Hearing Ability: Normal Dental Specialist Required: No Beliefs That Will Affect Care: None marital status: Single Current Living Situation: Alone current occupational status: retired current occupation: does consulting work on the side How many Children do You have: 2 Other Information That Helps Us Care for You: Yes (patient needs help at home) Feels Safe at Home: Yes Safety Concerns: Feels Safe At This Time Childhood Exposure to Second-Hand Smoke: No caffeine: Yes Dental Care, Regularly: Yes Physical Activity Frequency: 5-6 Times per Week Seatbelt Use: always Sunscreen Use: Yes Assistive Devices: None Review of Systems Review of Systems: Please refer to admission H&P. No additions or deletions Physical Exam 2 Constitutional: + ill appearing and + disheveled; not in distress Neck: trachea midline, no thyromegaly Respiratory: normal respiratory effort, lungs clear to auscultation Cardiovascular: RRR, no murmur, no edema Gastrointestinal (Abdomen): Inspection/Auscultation: + abdomen distended Percussion/Palpation: abdomen nontender and no guarding Telangiectasias Musculoskeletal: Extremities: extremities normal to inspection Skin: no rashes, warm and dry Neurologic: Nonfocal exam Lymphatic: no cervical lymphadenopathy Results & Data Results & Data Vital Signs (Past 12 Hours) Vital Signs Temp Pulse Pulse Resp BP BP Pulse Ox 04/29/22 08:59 04/29/22 07:42 36.9 C 95 H 18 86/55 L 98 04/29/22 04:34 04/29/22 03:53 36.8 C 85 15 104/76 96 04/29/22 03:00 92 H 18 103/81 99 04/29/22 01:00 98 H 20 108/61 97 04/29/22 00:00 93 H 19 117/57 L 98 04/28/22 22:53 91 H 22 94/67 L 98 O2 Del Method O2 Flow Rate 04/29/22 08:59 Nasal Cannula 3 04/29/22 07:42 Nasal Cannula 3 04/29/22 04:34 Nasal Cannula 3 04/29/22 03:53 Nasal Cannula 3 04/29/22 03:00 Nasal Cannula 3 04/29/22 01:00 Nasal Cannula 3 04/29/22 00:00 Nasal Cannula 3 04/28/22 22:53 Nasal Cannula 2 Critical Care Results & Data Vital Signs (Past 12 Hours) Vital Signs Temp Pulse Pulse Resp BP BP Pulse Ox 04/29/22 08:59 04/29/22 07:42 36.9 C 95 H 18 86/55 L 98 04/29/22 04:34 04/29/22 03:53 36.8 C 85 15 104/76 96 04/29/22 03:00 92 H 18 103/81 99 04/29/22 01:00 98 H 20 108/61 97 04/29/22 00:00 93 H 19 117/57 L 98 04/28/22 22:53 91 H 22 94/67 L 98 O2 Del Method O2 Flow Rate 04/29/22 08:59 Nasal Cannula 3 04/29/22 07:42 Nasal Cannula 3 04/29/22 04:34 Nasal Cannula 3 04/29/22 03:53 Nasal Cannula 3 04/29/22 03:00 Nasal Cannula 3 04/29/22 01:00 Nasal Cannula 3 04/29/22 00:00 Nasal Cannula 3 04/28/22 22:53 Nasal Cannula 2 Lab & Micro Results (Past 24 Hours) RBC 2.62 M/uL (4.70-6.10) L 04/29/22 WBC 12.14 K/ul (4.8-10.8) H 04/29/22 Hgb 9.3 g/dl (14.0-18.0) L 04/29/22 Hct 26.9 % (42.0-52.0) L 04/29/22 MCV 102.7 fL (80.0-100.0) H 04/29/22 MCH 35.5 pg (25.0-34.0) H 04/29/22 MCHC 34.6 g/dL (32.0-36.0) 04/29/22 RDW Standard Deviation 70.8 fL (36.4-46.3) H 04/29/22 RDW Coefficient of Variation 19.8 % (11.5-14.5) H 04/29/22 Plt Count 102 K/uL (130-400) L 04/29/22 MPV 11.1 fL (9.4-12.4) 04/29/22 Neutrophils (%) (Auto) 83.7 % 04/29/22 Lymphocytes (%) (Auto) 6.3 % 04/29/22 Monocytes # (Auto) 1.15 K/uL (0.11-0.59) H 04/29/22 Eosinophils # (Auto) 0.00 K/uL (0-0.50) 04/29/22 Immature Granulocyte % (Auto) 0.4 % 04/29/22 Neutrophils # (Auto) 10.16 K/uL (1.40-6.50) H 04/29/22 Lymphocytes # (Auto) 0.77 K/uL (1.2-3.4) L 04/29/22 Monocytes # (Auto) 1.15 K/uL (0.11-0.59) H 04/29/22 Eosinophils # (Auto) 0.00 K/uL (0-0.50) 04/29/22 Basophils # (Auto) 0.01 K/uL (0-0.2) 04/29/22 Immature Granulocyte # (Auto) 0.05 K/uL (0.01-0.20) 3 Na 139 mmol/L (136-145) 04/29/22 K 3.5 mmol/L (3.5-5.1) 04/29/22 Cl 92 mmol/L (98-107) L 04/29/22 CO2 16 mmol/L (21-32) L 04/29/22 Anion Gap 31 (3-11) H 04/29/22 BUN 17 mg/dl (6-23) 04/29/22 Creatinine 4.19 mg/dl (0.6-1.4) H 04/29/22 Estimated GFR ( Amer) 14.6 ml/min 04/29/22 Estimated GFR (Non-Af Amer) 12.6 ml/min 04/29/22 BUN/Creatinine Ratio 4.1 (10-20) L 04/29/22 Glu 62 mg/dl (70-99(Fasting)) L 04/29/22 Ca 7.4 mg/dl (8.5-10.1) L 04/29/22 Total Bilirubin 5.8 mg/dl (0.2-1.0) H 04/29/22 AST 419 U/L (13-39) H 04/29/22 ALT 81 U/L (7-52) H 04/29/22 Alkaline Phosphatase 160 U/L (34-104) H 04/29/22 TP 5.9 gm/dl (6.0-8.3) L 04/29/22 Albumin 2.3 gm/dl (3.4-5.0) L 04/29/22 Globulin 3.6 gm/dl (2.5-4.0) 04/29/22 Albumin/Globulin Ratio 0.6 (0.9-2) L 04/29/22 Mg 1.8 mg/dl (1.7-2.4) 04/29/22 05:51 Calcium Level 7.4 mg/dl (8.5-10.1) L 04/29/22 08:25 Prothromb Time International Ratio 2.0 (0.9-1.1) H 03/18/23 05 :51 Arterial Blood pH 7.33 (7.35-7.45) L 04/29/22 08:25 Arterial Blood Partial Pressure CO2 25 mmHg (35-46) L 04/29/22 08:25 Arterial Blood Partial Pressure O2 105 mmHg (80-95) H 04/29/22 08:25 Arterial Blood HCO3 13 mmol/L (19-24) L 04/29/22 08:25 Arterial Blood Base Excess -11.3 mEq/L (-9-1.8) L 04/29/22 08:2 5 Arterial Blood Oxygen Saturation 98.5 % (90-95) H 04/29/22 08:2 5 Blood Gas Oxygen Given 3L 04/29/22 08:25 Sheng Test Pos (Pos) 04/29/22 08:25 Diagnostic Findings (Past 24 Hours) Abdomen/Pelvis CT 04/28/22 17:04 CT chest diagnostic wo con, CT abd pelvis wo con CT DOSE: HISTORY: trauma, altered mental status. Fall. Right-sided rib and abdominal pain. TECHNIQUE: Multiaxial CT images of the chest , abdomen, pelvis were performed without contrast. A dose lowering technique was utilized adhering to the principles of ALARA. COMPARISON: Chest abdomen pelvis CT 05/26/2021. FINDINGS: Chest CT: Small amount of mucoid material within the proximal trachea. Otherwise, the central airways are patent. There is a trace pleural effusions. No left pleural effusion. No pneumothorax. Motion artifact results in suboptimal evaluation. A few left basilar small linear densities favor subsegmental atelectasis. Otherwise, left lung is clear. There is marked elevation the right hemidiaphragm. This has progressed in the interval. There is consolidation within the base the right lower lobe which favors compressive atelectasis from the elevated right hemidiaphragm. A superimposed pneumonia would be difficult to exclude by imaging. No acute fractures identified within the chest. Evaluation for mediastinal injury is suboptimal due to the lack of intravenous contrast. Ho wever, there is no mediastinal hematoma or lymphadenopathy. No pericardial effusion. The heart is borderline enlarged. Mild calcified plaque within the normal caliber thoracic aorta. Mild circumferential thickening of the mid to distal esophagus is noted. Coronary artery calcifications are noted. Abdomen/pelvis CT: No pneumoperitoneum. No pneumatosis. No acute fractures i dentified. Severe hepatic steatosis is again noted. Evaluation of the solid abdominal viscera is suboptimal due to the lack of intravenous contrast. Moderate amount of fluid within the upper quadrant surrounding the liver and spleen. This is new from the prior study. There is also fluid tracking along the paracolic gutters and within the deep pelvis. Some of this is low density. However, some of the the perihepatic fluid appears to represent intermediate density and could represent hemoperitoneum. However, this relative increased density within this fluid could be due to streak artifact from the patient's overlapping arms. The exact etiology is not clearly identified on this study but could be due to a hepatic laceration versus the artifact as described above. A 1.5 cm hyperdense focus within the right hepatic lobe which previously measured 1.0 cm is indeterminate. There is an additional 1.8 cm hypodense focus within the right hepatic dome on image 72. The unenhanced spleen appears unremarkable. The unenhanced pancreas, gallbladder, and kidneys appear unremarkable. 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 No retroperitoneal hematoma lymphadenopathy. Normal caliber abdominal aorta. The bladder is unremarkable. The prostate remains mildly enlarged. There is a left inguinal hernia containing a short segment of the vessel sigmoid colon, unchanged. Colonic diverticulosis. No evidence for acute diverticulitis. [id number] bowel wall thickening within the proximal colon. There is also multiple thickened loops of small bowel within the abdomen. This is new from the prior study and is consistent with a nonspecific enterocolitis. This could be due to the patient's diffuse edematous state. Moderate body wall edema. Suboptimal evaluation of the abdominal struc tures due to the streak artifact from the patient's overlapping arms. IMPRESSION: 1. Severe hepatic steatosis is again noted. Evaluation of the solid abdominal viscera is suboptimal due to the lack of intravenous contrast. Moderate amount of fluid within the upper quadrants surrounding the liver and spleen. This is new from the prior study. There is also fluid tracking along the paracolic gutters and within the deep pelvis. Some of this is low density. However, some of the the perihepatic fluid appears to represent intermediate density and could represent hemoperitoneum. However, this relative increased density within this fluid could be due to streak artifact from the patient's overlapping arms. The exact etiology is not clearly identified on this study but could be due to an occult hepatic laceration versus the artifact as described above. 2. No acute process within the chest. 3. Chronic elevation the right hemidiaphragm which has progressed. 4. No acute fractures identified. 5. Diffuse body wall edema. 6. Multiple thickened loops of small and large bowel consistent with a nonspecific enterocolitis. This could be due to the patient's diffuse edematous state. 7. Hyperdense right hepatic lobe lesions as described above which are indeterminate. Consider follow-up abdominal MRI in 3-6 months to ensure resolution. 8. Additional findings as described above. ACT 112: Positive. There are findings on this exam that require communication between the performing entity and the patient following Patient Test Result Information Act ([place] Act 112) guidelines. Electronically signed by: Nathaniel Schultz M.D. 04/28/2022 7:[address] 04/28/22 17:[address] DOSE: 2066.38 mGy.cm HISTORY: Fall. trauma TECHNIQUE: Multiaxial CT images of the cervical spine were performed and reformatted in the sagittal and coronal plane without the use of contrast. A dose lowering technique was utilized adhering to the principles of ALARA. COMPARISON: Cervical spine CT 03/28/2022. FINDINGS: No fractures. Advanced degenerative changes again noted throughout the cervical spine with multiple fused vertebral bodies and facets from the C2-C4 levels. There is straightening of the cervical spine. Prevertebral soft tissues and the C1-C2 interval are intact. No pneumothorax. IMPRESSION: No fractures within the cervical spine. ACT 112: Negative or not required by law. Electronically signed by: Nathaniel Schultz M.D. 04/28/2022 7:[address] 04/28/22 17:04 CT chest diagnostic wo con, CT abd pelvis wo con CT DOSE: HISTORY: trauma, altered mental status. Fall. Right-sided rib and abdominal pain. TECHNIQUE: Multiaxial CT images of the chest , abdomen, pelvis were performed without contrast. A dose lowering technique was utilized adhering to the principles of ALARA. COMPARISON: Chest abdomen pelvis CT 05/26/2021. FINDINGS: Chest CT: Small amount of mucoid material within the proximal trachea. Otherwise, the central airways are patent. There is a trace pleural effusions. No left pleural effusion. No pneumothorax. Motion artifact results in suboptimal evaluation. A few left basilar small linear densities favor subsegmental atelectasis. Otherwise, left lung is clear. There is marked elevation the right hemidiaphragm. This has progressed in the interval. There is consolidation within the base the right lower lobe which favors compressive atelectasis from the elevated right hemidiaphragm. A superimposed pneumonia would be difficult to exclude by imaging. No acute fractures identified within the chest. Evaluation for mediastinal injury is suboptimal due to the lack of intravenous contrast. However, there is no mediastinal hematoma or lymphadenopathy. No pericardial effusion. The heart is borderline enlarged. Mild calcified plaque within the normal caliber thoracic aorta. Mild circumferential thickening of the mid to distal esophagus is noted. Coronary artery calcifications are noted. Abdomen/pelvis CT: No pneumoperitoneum. No pneumatosis. No acute fractures identified. Severe hepatic steatosis is again noted. Evaluation of the solid abdominal viscera is suboptimal due to the lack of intravenous contrast. Moderate amount of fluid within the upper quadrant surrounding the liver and spleen. This is new from the prior study. There is also fluid tracking along the paracolic gutters and within the deep pelvis. Some of this is low density. Skelton salty, some of the the perihepatic fluid appears to represent intermediate density and could represent hemoperitoneum. However, this relative increased density within this fluid could be due to streak artifact from the patient's overlapping arms. The exact etiology is not clearly identified on this study but could be due to a hepatic laceration versus the artifact as described above. A 1.5 cm hyperdense focus within the right hepatic lobe which previously measured 1.0 cm is indeterminate. There is an additional 1.8 cm hypodense focus within the right hepatic dome on image 72. The unenhanced spleen appears unremarkable. The unenhanced pancreas, gallbladder, and kidneys appear unremarkable. 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 No retroperitoneal hematoma lymphadenopathy. Normal caliber abdominal aorta. The bladder is unremarkable. The prostate remains mildly enlarged. There is a left inguinal hernia containing a short segment of the vessel sigmoid colon, unchanged. Colonic diverticulosis. No evidence for acute diverticulitis. Dtmo-[id number] bowel wall thickening within the proximal colon. There is also multiple thickened loops of small bowel within the abdomen. This is new from the prior study and is consistent with a nonspecific enterocolitis. This could be due to the patient's diffuse edematous state. Moderate body wall edema. Suboptimal evaluation of the abdominal structures due to the streak artifact from the patient's overlapping arms. IMPRESSION: 1. Severe hepatic steatosis is again noted. Evaluation of the solid abdominal viscera is suboptimal due to the lack of intravenous contrast. Moderate amount of fluid within the upper quadrants surrounding the liver and spleen. This is new from the prior study. There is also fluid tracking along the paracolic gutters and within the deep pelvis. Some of this is low density. However, some of the the perihepatic fluid appears to represent intermediate density and could represent hemoperitoneum. However, this relative increased density within this fluid could be due to streak artifact from the patient's overlapping arms. The exact etiology is not clearly identified on this study but could be due to an occult hepatic laceration versus the artifact as described above. 2. No acute process within the chest. 3. Chronic elevation the right hemidiaphragm which has progressed. 4. No acute fractures identified. 5. Diffuse body wall edema. 6. Multiple thickened loops of small and large bowel consistent with a nonspecific enterocolitis. This could be due to the patient's diffuse edematous state. 7. Hyperdense right hepatic lobe lesions as described above which are indeterminate. Consider follow-up abdominal MRI in 3-6 months to ensure resolution. 8. Additional findings as described above. ACT 112: Positive. There are findings on this exam that require communication between the performing entity and the patient following Patient Test Result Information Act ([place] Act 112) guidelines. Electronically signed by: Nathaniel Schultz M.D. 04/28/2022 7:[address] 04/28/22 17:[address] DOSE: HISTORY: trauma TECHNIQUE: Multiaxial CT images of the head were performed without the use of intravenous contrast. Automated exposure control was utilized for this study. A dose lowering technique was utilized adhering to the principles of ALARA. Comparison: Head CT 03/31/2022. Findings: The paranasal sinuses and mastoid air cells are clear. The calvarium and skull base are intact. There is no mass, hematoma, midline shift, acute infarct. White matter hypodensity is nonspecific but suggestive of microvascular ischemic change. The ventricles and sulci demonstrate mild age-related involutional changes. Motion artifact. 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 Impression: Motion artifact. No definite acute intracranial abnormality. ACT 112: Negative or not required by law. Electronically signed by: Nathaniel Schultz M.D. 04/28/2022 7:04 PM Tibia/Fibula X-Ray 04/28/22 17:24 XR tibia fibula RT 2V CLINICAL HISTORY: trauma. Right lower leg pain. COMPARISON STUDY: Right knee 03/31/2022. FINDINGS: No fracture or dislocation within the right tibia or fibula. Vascular calcifications are noted. No radiopaque foreign bodies. Mild diffuse soft tissue edema is noted. IMPRESSION: No fractures within the right lower leg. ACT 112: Negative or not required by law. Electronically signed by: Nathaniel Schultz M.D. 04/28/2022 6:21 PM Abdomen/Pelvis CT 04/29/22 08:26 CT OF THE ABDOMEN AND PELVIS WITHOUT CONTRAST CLINICAL HISTORY: ?hemoperitoneum, abdominal distension. COMPARISON STUDY: CT of the abdomen and pelvis April 28, 2022 and May 26, 2021. TECHNIQUE: Axial images of the abdomen and pelvis were obtained without IV contrast. Images were reviewed in the axial, sagittal, and coronal planes. Automated exposure control was utilized for the study. A dose lowering technique was utilized adhering to the principles of ALARA. FINDINGS: Small bilateral pleural effusions have slightly increased since CT of April 28, 2022. Marked elevation of the right hemidiaphragm is again noted. No acute fractures are identified within visualized portions of the ribs. There is mild cardiomegaly. Severe hepatic steatosis is again noted. Right hepatic dome cyst is present. 2 right hepatic lobe lesions measure up to 2.5 cm. These are indeterminate. The appearance of the liver is unchanged. The liver appears somewhat diminutive. The findings favor cirrhosis. Size of the spleen is normal. Moderate abdominal and pelvic ascites is noted. The fluid measures near water attenuation. The amount of fluid is unchanged since prior CT. No definite hemorrhage is present. A Wang balloon within the bladder is noted. Adrenal glands, kidneys and pancreas are unremarkable. Dilatation of the proximal celiac axis, measuring 1.8 cm is unchanged. Evaluation of the abdomen and pelvis is suboptimal on this unenhanced exam. Large and small bowel wall thickening is similar to prior exam. There is no evidence for a bowel obstruction. Mesenteric stranding is unchanged. There is anasarca. No fluid collection is identified to suggest an abscess. No pneumatosis, free air or portal venous gas is present. Left inguinal hernia contains a portion of the sigmoid colon. This does not result in a bowel obstruction. IMPRESSION: 1. Moderate fluid within the abdomen and pelvis, unchanged since CT of April 28, 2022. This favors ascites. Apparent increased attenuation within portions of this fluid is likely artifactual. Hemoperitoneum is considered less likely but would be difficult to completely exclude. 2. Severe hepatic steatosis with possible cirrhosis. The findings may indicate acute liver injury. Two indeterminate right hepatic lobe lesions which can be assessed on follow-up exams. 3. Slight increase in small bilateral pleural effusions. 4. No change in small and large bowel wall thickening. This could be due to the patient's diffuse edematous state or represent a nonspecific enterocolitis. 5. Anasarca. 6. No bowel obstruction. ACT 112: Negative or not required by law. Electronically signed by: Eugene Hillman M.D. 04/29/2022 9:52 AM I & O Totals 24 Hours 04/28/22 04/29/22 04/30/22 06:59 06:59 06:59 Intake Total 3159.117 / 3159.117 50.5 / 50.5 Output Total 150 / 150 Balance 3009.117 / 3009.117 50.5 / 50.5 Cumulative 04/28/22 16:30 thru 04/29/22 09:14 Intake Total 3209.617 Output Total 150 Balance 3059.617 RT Ventilator Mngmt (Last Documented) Ventilator Ordered Settings Respiratory Rate 18 04/29/22 07:42 Ventilator - PT Measurements Respiratory Rate 18 Coding Level of Care Code 37470 CRITICAL CARE 1ST 30-74M Diagnoses Acidosis E87.20 Acute metabolic encephalopathy G93.41 Coagulopathy D68.9 (HFpEF) heart failure with preserved ejection fraction I50.30 Acute kidney injury N17.9 Alcoholism F10.20
[2022-04-29] MEDS ORDERED: SODIUM BICARB 8.4% INJ 50 MEQ/50 ML SYR IV STA (10:32)
[2022-04-29] MEDS ORDERED: STAT IV Infusion **Titration per Protocol STA (10:36)
[2022-04-29] MEDS ORDERED: PHENYLEPHRINE/NSS 25 MG/250 ML BAG IV SCH (10:45)
[2022-04-29] MEDS ORDERED: SODIUM BICARBONATE 8.4% 75 MEQ in D5W AND 1/2NSS 1,000 ML IV SCH (11:00)
[2022-04-29] MEDS ORDERED: PHENYLEPHRINE HCL IV SCH (11:15)
[2022-04-29] MEDS ORDERED: SODIUM CHLORIDE 0.9% IV SCH (11:15)
[2022-04-29] MEDS: ALBUMIN 25% 100 mL 25 GM/100 ML VIAL IV SCH ×3 (11:19→21:50)
--- NOTE | 2022-04-29 11:34 | Nephrology Consultation ---
Date of Consultation April 29, 2022 Assessment & Plan (1) BRITTA (acute kidney injury): * Oliguric BRITTA - likely ATN related to hypotension. Will order urine microscopy to assess for ATN casts * Electrolyte balance is acceptable. No acute indication for MANAGER GENERAL at this time * Management discussed w/ ICU team this am. They will provide IV hydration and NaHCO3 supplementation * Monitor PRP, UO (2) Alcohol poisoning: * Ethanol is osmotically active. Osmolar gap closes when Ethanol is accounted for in the calculations [ie., 2(Na)+BUN/2.8+Gluc/18+Ethanol/4.6]. No evidence by history or osmolar gap calculation of toxic alcohol ingestion. No acute indication for Fomepazole therapy. Management of alcohol intoxication is primarily supportive * Methanol & Ethylene Glycol levels have been ordered but osmolar gap corrects when Ethanol level is taken into account (3) High serum osmolar gap: * High anion gap metabolic acidosis related to hypotension, poor perfusion and elevated lactate. ICU team is providing hydration and NaHCO3 supplementation (4) Dehydration: * Continue IV hydration * Monitor UO History of Present Illness Reason for Consultation: BRITTA, alcohol poisoning Attending Physician: Deniz Chacon History of Present Illness Mr. Amin is a 77 year old male who is seen at the request of Dr. Chacon for evaluation of BRITTA in the setting of acute alcohol poisoning. Patient is A&O x3. He was able to provide most details of his medical history which is summarized as follows: Mr. Amin has a h/o alcohol abuse. He reports drinking a full bottle of Tequila and later falling hitting his head. He denies drinking wood alcohol, heating fluid, windshield fluid or any toxic agent. He denies trying to intentionally hurt himself. He denies angina, dyspnea, flank pain, TEAGUE or visual change. EMD evaluation was negative for CVA, subdural hematoma or neck fracture. Toxicology screen is only positive for ethanol. Serum ethanol 125 mg/dl, measured osmolality 310, lactate > 17, CO2 16, Cr 4.19. SBP 73-97 mm Hg. Wang catheter has been placed. UO 150 cc since admission. ICU team has started IV hydration and bicarbonate supplementation. PMH - alcohol abuse, HTN, carotid stenosis, celiac artery aneurysm, diverticulosis, hyperlipidemia Allergies Allergy/AdvReac Type Severity Reaction Status Date / Time No Known Allergies Allergy Verified 04/28/22 19:22 Home Medications Medication Instructions Recorded Confirmed Type folic acid 1 mg tablet 1 mg PO QAM #30 tabs 03/16/22 04/28/22 Rx furosemide 20 mg tablet (Lasix) 20 mg PO DAILY PRN edema #120 tabs 03/29/22 04/28/22 Rx potassium chloride 20 mEq 20 meq PO DAILY #120 tabs 03/29/22 04/28/22 Rx tablet,extended release magnesium oxide 400 mg PO DAILY #60 tabs 03/30/22 04/28/22 Rx Patient History Medical History Alcohol use disorder in remission Alcoholism Anemia Arteriosclerosis of carotid artery Celiac artery aneurysm Diverticulosis Dyslipidemia Erectile dysfunction Gait disorder, alcoholic Hypertension Hypomagnesemia Internal hemorrhoids Tubular adenoma of colon Surgical History H/O hernia repair abdominal hernia repair with mesh (2002); hospital in [facility] H/O tooth extraction Family History Mother Dementia age 100 Father Stroke age 88 Grandfather (Maternal) Heart disease Denies family history of Ovarian cancer Prostate cancer Myocardial infarction Breast cancer Lung cancer Pulmonary embolism Cancer Social History Smoking Status: Unknown if ever smoked Tobacco Type: Cigarettes Second Hand Exposure: No; Hx Alcohol Use: Yes Alcohol type: beer and hard liquor Alcohol Intake Frequency: 4 or More x per/Week Hx Substance Use: Yes Preferred Language: [place] Citizen Communication Ability: Effective Visual Impairment: No Limitations 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 Beliefs That Will Affect Care: None marital status: Single Current Living Situation: Alone current occupational status: retired current occupation: does consulting work on the side How many Children do You have: 2 Other Information That Helps Us Care for You: Yes (patient needs help at home) Feels Safe at Home: Yes Safety Concerns: Feels Safe At This Time Childhood Exposure to Second-Hand Smoke: No caffeine: Yes Dental Care, Regularly: Yes Physical Activity Frequency: 5-6 Times per Week Seatbelt Use: always Sunscreen Use: Yes Assistive Devices: None Review of Systems Constitutional: no fever Eyes: no worsening vision Ear, Nose, Mouth, Throat: no problem reported Respiratory: no dyspnea Cardiovascular: no chest pain Gastrointestinal: no abdominal pain Physical Exam Constitutional: + ill appearing and + disheveled; not in distress Eyes: PERRL, conjunctivae normal, anicteric sclerae Neck: trachea midline, no thyromegaly Respiratory: normal respiratory effort, lungs clear to auscultation Cardiovascular: RRR, no murmur, no edema Gastrointestinal (Abdomen): Inspection/Auscultation: + abdomen distended and + hypoactive bowel sounds Neurologic: Speech / Cognition: normal speech and normal cognition Results & Data Vital Signs (Past 12 Hours) Vital Signs Temp Pulse Pulse Resp BP BP Pulse Ox 04/29/22 08:59 04/29/22 07:42 36.9 C 95 H 18 86/55 L 98 04/29/22 04:34 04/29/22 03:53 36.8 C 85 15 104/76 96 04/29/22 03:00 92 H 18 103/81 99 04/29/22 01:00 98 H 20 108/61 97 04/29/22 00:00 93 H 19 117/57 L 98 O2 Del Method O2 Flow Rate 04/29/22 08:59 Nasal Cannula 3 04/29/22 07:42 Nasal Cannula 3 04/29/22 04:34 Nasal Cannula 3 04/29/22 03:53 Nasal Cannula 3 04/29/22 03:00 Nasal Cannula 3 04/29/22 01:00 Nasal Cannula 3 04/29/22 00:00 Nasal Cannula 3 Laboratory Results Laboratory Tests 04/28/22 04/28/22 04/29/22 17:02 21:20 05:51 WBC Hgb Hct Plt Count INR Fibrinogen Fibrin Degrad Products D-Dimer Sodium Potassium Chloride Carbon Dioxide BUN Creatinine Glucose Osmolality Lactate Calcium Magnesium 1.8 Total Bilirubin 5.8 H AST 419 H ALT 81 H Alkaline Phosphatase 160 H Ammonia 59.0 Total Creatine Kinase Albumin 2.3 L Lipase 38 04/29/22 04/29/22 04/29/22 05:51 05:51 08:25 WBC 12.14 H Hgb 9.3 L Hct 26.9 L Plt Count 102 L INR 2.0 H Fibrinogen Fibrin Degrad Products D-Dimer Sodium 139 Potassium 3.5 Chloride 92 L Carbon Dioxide 16 L BUN 17 Creatinine 4.19 H Glucose 62 L Osmolality Lactate Calcium 7.4 L Magnesium Total Bilirubin AST ALT Alkaline Phosphatase Ammonia Total Creatine Kinase Albumin Lipase 04/29/22 04/29/22 04/29/22 08:25 08:25 08:25 WBC Hgb Hct Plt Count INR Fibrinogen 111 L Fibrin Degrad Products >40 H D-Dimer 6150 H* Sodium Potassium Chloride Carbon Dioxide BUN Creatinine Glucose Osmolality 310 H Lactate Calcium Magnesium Total Bilirubin AST ALT Alkaline Phosphatase Ammonia Total Creatine Kinase Albumin Lipase 04/29/22 04/29/22 08:25 08:25 WBC Hgb Hct Plt Count INR Fibrinogen Fibrin Degrad Products D-Dimer Sodium Potassium Chloride Carbon Dioxide BUN Creatinine Glucose Osmolality Lactate > 17.0 H* Calcium Magnesium Total Bilirubin AST ALT Alkaline Phosphatase Ammonia Total Creatine Kinase 288 H Albumin Lipase PG Care Time/CCT Total # of Minutes Spent Total Time Spent with Patient: Total time spent is greater than 50% in coordination of care (as documented) at patient's floor/unit and/or counseling patient: Coding Level of Care Code 64583 IN/OBS CONSULT LVL 5,80M Diagnoses BRITTA (acute kidney injury) N17.9 Alcohol poisoning T51.91XA High serum osmolar gap R74.8 Dehydration E86.0
[2022-04-29] MEDS: ERYTHROMYCIN OP OINT 1 GM PKT OPL SCH ×2 (12:00→21:54)
[2022-04-29] MEDS: MIDODRINE HCL 10 MG TAB PO SCH ×2 (12:37→17:10)
[2022-04-29 13:31] LABS: BUN Creatinine Ratio 4.2 (10-20); Calcium 7.4 mg/dl (8.5-10.1); Creatinine Clr Calc Pharmacy 14.5 ml/min; Est GFR (African American) 15.4 ml/min; Est GFR (Non-African American) 13.3 ml/min; Potassium 3.4 mmol/L (3.5-5.1)
[2022-04-29] MEDS ORDERED: GLUCOSE 40% GEL 15 GM TUBE PO ONE (13:53)
[2022-04-29] MEDS: SODIUM BICARBONATE 8.4% 150 MEQ in DEXTROSE 10% 1,000 ML IV SCH (14:15)
[2022-04-29] MEDS ORDERED: GLUCOSE 10 TAB/TUBE PO ONE (14:26)
[2022-04-29] MEDS: PHENYLEPHRINE/NSS 25 MG/250 ML BAG IV SCH ×2 (15:08→21:50)
[2022-04-29 20:40] LABS: Albumin Level 2.9 gm/dl (3.4-5.0); Bilirubin Direct 4.1 mg/dl (0-0.2); Bilirubin,Total 7.6 mg/dl (0.2-1.0); Calcium 7.8 mg/dl (8.5-10.1); Creatinine Clr Calc Pharmacy 12.9 ml/min; Est GFR (African American) 13.4 ml/min; Est GFR (Non-African American) 11.6 ml/min; Potassium 3.6 mmol/L (3.5-5.1); Total Protein 6.4 gm/dl (6.0-8.3)
[2022-04-29 20:50] LABS: INR 2.6 (0.9-1.1); Prothrombin Time 26.7 Seconds (9.0-12.0)
[2022-04-29] MEDS ORDERED: PHYTONADIONE 10 MG in DEXTROSE 5% 50 ML IV ONE (21:45)
[2022-04-29 22:39] LABS: Creatinine Urine Random 12.1 mg/dl
[2022-04-29 22:50] LABS: Appearance Urine Cloudy (Clear); Bacteria Urine Automated Negative (Negative); Bilirubin Urine Negative (Negative); Blood Urine 3+ (Negative); Color Urine Yellow; Epithelial Cell Urine Auto >30 /lpf (0-5); Glucose Urine UA Negative (Negative); Ketones Urine Negative (Negative); Leukocyte Esterase Urine 2+ (Negative); Nitrite Urine Negative (Negative); Protein Urine 1+ (Negative); Specific Gravity Urine 1.007 (1.000-1.030); Urobilinogen Urine Negative (Negative); pH Urine 5.5 (4.5-7.5)
[2022-04-29 23:07] LABS: Renal Epithelial Cells Urine 0-5 /lpf (0-5)
[2022-04-30] MEDS: SODIUM BICARBONATE 8.4% 150 MEQ in DEXTROSE 10% 1,000 ML IV SCH (02:25)
[2022-04-30] MEDS: PHENYLEPHRINE/NSS 25 MG/250 ML BAG IV SCH ×2 (02:25→06:48)
[2022-04-30] MEDS: ALBUMIN 25% 100 mL 25 GM/100 ML VIAL IV SCH (02:26)
[2022-04-30] MEDS ORDERED: RAPID SEQUENCE INDUCTION BAG ONE (05:35)
--- NOTE | 2022-04-30 05:59 | Communication Note ---
Date of Service: April 30, 2022 Mr. Amin was admitted to ICU for ACLF with multiorgan dysfunction/failure. Patient has been given trial of volume as well as albumin and vasopressors for support of hemodynamics and MAPS. He has not had any meaningful urine output over the past 24 hours and is with worsening renal function. This homoeopath the patient started to experience increased shortness of breath, hypoxia requiring increase in oxygen. Patient progressed to obtundation and use of abdominal muscles and grunting to breathe. Patient with impending respiratory failure. I called and discussed his case and current status with his daughter Judy (she is a Registered Nurse). With his current state of multiorgan dysfunction and high likeliness of inability to wean off ventilator in this state, his daughter has elected to make him comfortable with continuing to support, without intubating or placing on mechanical support, which includes dialysis. She understands that his ability to recover from these insults is minimal. As his MELD is 34 and is not a candidate for transplant secondary to his continued use of Alcohol she has elected to make Jaimee DNR/DNI and progress to comfort care if he continues to fail supportive measures. Patient code status has been changed to DNR/DNI Conversation and verification of code status change was witnessed by Ciarra Perdomo RN Patient will be trialed on BiPAP for support of respiratory efforts with the understanding of daughter that risk of aspiration with this, but willing to try to see if it makes his breathing more comfortable. CC time to include discussion with daughter of 33 min, ordering and interpreting diagnostics and clinical decision making. This time is separate from any other critical care billing time Coding Level of Care Code 63439 CRITICAL CARE 1ST 30-74M Time Spent (min) 33
[2022-04-30 06:49] LABS: Albumin Globulin Ratio 1.2 (0.9-2); Albumin Level 3.3 gm/dl (3.4-5.0); BUN Creatinine Ratio 4.2 (10-20); Bilirubin,Total 7.2 mg/dl (0.2-1.0); Calcium 7.6 mg/dl (8.5-10.1); Creatinine Clr Calc Pharmacy 12.8 ml/min; Est GFR (African American) 13.4 ml/min; Est GFR (Non-African American) 11.5 ml/min; Globulin 2.8 gm/dl (2.5-4.0); Magnesium 1.7 mg/dl (1.7-2.4); Potassium 3.3 mmol/L (3.5-5.1); Total Protein 6.1 gm/dl (6.0-8.3)
[2022-04-30] MEDS ORDERED: LORazepam 0.5 MG TAB PO PRN (08:13)
[2022-04-30] MEDS ORDERED: MoRPHine SULFATE 10 MG/0.5 ML UDP PO PRN (08:13)
[2022-04-30] MEDS ORDERED: MoRPHine SULFATE 2 MG/ML CARP IV PRN (08:13)
[2022-04-30] MEDS ORDERED: ONDANSETRON 4 MG OD TAB SL PRN (08:13)
[2022-04-30] MEDS ORDERED: ONDANSETRON INJ 2 MG/ML 2 ML VIAL IV PRN (08:13)
[2022-04-30] MEDS ORDERED: GLYCOPYRROLATE 0.2 MG/ML VIAL IV PRN (08:13)
[2022-04-30] MEDS ORDERED: LORazepam 2 MG/1 ML VIAL IV PRN (08:13)
--- NOTE | 2022-04-30 08:13 | Critical Care Progress Note ---
Date of Service April 30, 2022 Assessment & Plan (1) Acidosis: (2) Acute metabolic encephalopathy: (3) Coagulopathy: (4) (HFpEF) heart failure with preserved ejection fraction: (5) Acute kidney injury: (6) Alcoholism: Plan Impression: 77-year-old alcoholic male presenting with acute alcohol intoxication, acute renal failure, and altered mental status. His mental status is improving. There is initial concern about possible ingestion of a volatile alcohol however his osmolar gap appears to have cleared. He is in acute renal failure. 24-hour events: Patient has continued to decline clinically. He was initiated on pressor agents. He became progressively more encephalopathic with increased work of breathing. He is placed on BiPAP. Discussions were had with the daughter who is POA. She stated the patient would not want aggressive interventions including intubation chemical ventilation or dialysis. This morning she wants to proceed with palliative comfort measures. Recommendations: 1. Neurologic: Progressive encephalopathy likely multifactorial and metabolic in nature. Daughter is elected to pursue comfort care/palliative care measures. 2. Cardiovascular: Remains dependent on Shiraz-Synephrine. We discussed discontinuing this medication which the daughter is in agreement with. 3. Pulmonary: Chronically elevated right hemidiaphragm of unclear etiology. X- ray this morning demonstrates more opacities consistent with pulmonary edema. Will stop IV fluids at this point time. Morphine and Ativan as needed for dyspnea management 4. Renal: Acute renal failure. No significant urine output overnight. The patient's acid-base status is improved with bicarb however he now has volume issues. The daughter again declines renal replacement. We discussed a trial of high-dose diuretics to see whether or not the patient would respond but she does not believe this is warranted at this point in time and again would like to focus on symptom management. 5. GI: Acute liver failure secondary to acute alcohol and chronic alcohol ingestion. Transitioning to comfort care 6. ID: At risk for development of spontaneous bacterial peritonitis but again fluid is not accessible for paracentesis currently. 7. Endocrine: Glycemic control per protocol. Low sugar poor prognostic factor in hepatic failure 8. Heme-onc: Continued coagulopathy Per discussion with the daughter, will transition the patient to comfort care measures. There is another daughter in route. They will let us know when they are ready to pursue full palliative care. Critical care services will sign off at this point time. Feel free to contact us if we can be of additional assistance The patient is critically ill with likely progression to . A total of 45 minutes critical care time including end-of-life discussions was spent in addition to critical care time billed by the overnight [facility]. Admission and Anticipated Discharge Date Admission Date: April 28, 2022 Review of Systems Review of Systems: Unobtainable due to reduced consciousness Physical Exam Constitutional: + ill appearing and + disheveled Neck: trachea midline, no thyromegaly Respiratory: + labored breathing and + tachypneic Auscultation: + diminished lung sounds and + rhonchi Cardiovascular: RRR, no murmur, no edema Gastrointestinal (Abdomen): Inspection/Auscultation: + abdomen distended Percussion/Palpation: abdomen nontender and no guarding Musculoskeletal: Extremities: extremities normal to inspection Skin: no rashes, warm and dry Lymphatic: no cervical lymphadenopathy Results & Data Results & Data Vital Signs (Past 12 Hours) Vital Signs Temp Pulse Resp BP Pulse Ox Pulse Ox O2 Del Method 04/30/22 06:41 95/71 L 04/30/22 06:41 20 92 04/30/22 06:30 100 H 21 91 04/30/22 06:08 85/50 L 04/30/22 06:08 112 H 33 H 93 04/30/22 06:00 91 H 20 95 04/30/22 06:00 68/57 L 04/30/22 05:31 103/74 04/30/22 05:31 91 H 20 95 04/30/22 05:30 88 18 95 04/30/22 05:00 88 16 94 04/30/22 05:00 91/73 L 04/30/22 04:30 90 17 94 04/30/22 04:30 107/72 04/30/22 04:01 90 17 95 04/30/22 04:01 104/52 L 04/30/22 04:00 90 17 96 04/30/22 03:30 90 16 95 04/30/22 03:30 110/76 04/30/22 03:00 94 H 19 98 04/30/22 03:00 106/77 04/30/22 02:30 92 H 22 96 04/30/22 02:30 105/86 04/30/22 02:00 90 28 H 96 04/30/22 02:00 107/90 04/30/22 01:30 110 H 22 96 04/30/22 01:15 94/66 L 04/30/22 01:15 95 H 20 96 04/30/22 01:01 95/78 L 04/30/22 01:01 92 H 21 96 04/30/22 01:00 91 H 22 96 04/30/22 00:45 111/62 04/30/22 00:45 93 H 24 93 04/30/22 06:00 90 30 H 94 04/30/22 01:05 92 04/30/22 00:30 95 H 24 96 04/30/22 00:30 96/80 L 04/30/22 00:15 102/87 04/30/22 00:15 92 H 27 H 90 04/30/22 00:00 91 04/29/22 23:47 97 H 27 H 86 L 04/29/22 23:47 112/76 04/29/22 23:30 94 H 21 91 04/29/22 23:30 105/65 04/29/22 23:15 100/63 04/29/22 23:15 93 H 21 91 04/29/22 23:01 93 H 21 92 04/29/22 23:01 106/55 L 04/29/22 23:00 92 H 21 92 04/29/22 22:45 97/69 L 04/29/22 22:45 99 H 26 H 87 L 04/29/22 22:30 94 H 19 92 04/29/22 22:30 103/69 04/29/22 22:15 100/76 04/29/22 22:15 93 H 23 92 04/29/22 22:00 95 H 22 93 04/29/22 22:00 133/92 04/29/22 21:55 113/66 04/29/22 21:55 92 H 21 92 04/29/22 21:50 93/66 L 04/29/22 21:50 92 H 20 94 04/29/22 21:45 93/60 L 04/29/22 21:45 92 H 20 94 04/29/22 21:40 101/76 04/29/22 21:40 96 H 22 93 04/29/22 21:35 94 H 20 94 04/29/22 21:35 96/69 L 04/29/22 21:30 89 20 93 04/29/22 21:30 118/57 L 04/29/22 21:25 103/70 04/29/22 21:25 93 H 19 93 04/29/22 21:20 106/88 04/29/22 21:20 93 H 20 94 04/29/22 21:15 99/80 L 04/29/22 21:15 93 H 21 94 04/29/22 21:10 99/58 L 04/29/22 21:10 94 H 20 94 04/29/22 21:05 111/95 04/29/22 21:05 95 H 20 95 04/29/22 21:00 95 H 18 94 04/29/22 21:00 112/72 04/29/22 20:55 94 H 18 94 04/29/22 20:55 105/90 04/29/22 20:50 107/76 04/29/22 20:50 36.6 C 94 H 19 94 04/30/22 00:42 Oxymask O2 Del Method O2 Flow Rate O2 Flow Rate FiO2 04/30/22 06:41 04/30/22 06:41 04/30/22 06:30 04/30/22 06:08 04/30/22 06:08 04/30/22 06:00 04/30/22 06:00 04/30/22 05:31 04/30/22 05:31 04/30/22 05:30 04/30/22 05:00 04/30/22 05:00 04/30/22 04:30 04/30/22 04:30 04/30/22 04:01 04/30/22 04:01 04/30/22 04:00 04/30/22 03:30 04/30/22 03:30 04/30/22 03:00 04/30/22 03:00 04/30/22 02:30 04/30/22 02:30 04/30/22 02:00 04/30/22 02:00 04/30/22 01:30 04/30/22 01:15 04/30/22 01:15 04/30/22 01:01 04/30/22 01:01 04/30/22 01:00 04/30/22 00:45 04/30/22 00:45 04/30/22 06:00 30 04/30/22 01:05 Oxymask 5 04/30/22 00:30 04/30/22 00:30 04/30/22 00:15 04/30/22 00:15 04/30/22 00:00 04/29/22 23:47 04/29/22 23:47 04/29/22 23:30 04/29/22 23:30 04/29/22 23:15 04/29/22 23:15 04/29/22 23:01 04/29/22 23:01 04/29/22 23:00 04/29/22 22:45 04/29/22 22:45 04/29/22 22:30 04/29/22 22:30 04/29/22 22:15 04/29/22 22:15 04/29/22 22:00 04/29/22 22:00 04/29/22 21:55 04/29/22 21:55 04/29/22 21:50 04/29/22 21:50 04/29/22 21:45 04/29/22 21:45 04/29/22 21:40 04/29/22 21:40 04/29/22 21:35 04/29/22 21:35 04/29/22 21:30 04/29/22 21:30 04/29/22 21:25 04/29/22 21:25 04/29/22 21:20 04/29/22 21:20 04/29/22 21:15 04/29/22 21:15 04/29/22 21:10 04/29/22 21:10 04/29/22 21:05 04/29/22 21:05 04/29/22 21:00 04/29/22 21:00 04/29/22 20:55 04/29/22 20:55 04/29/22 20:50 04/29/22 20:50 04/30/22 00:42 5 Critical Care Results & Data Vital Signs (Past 12 Hours) Vital Signs Temp Pulse Resp BP Pulse Ox Pulse Ox O2 Del Method 04/30/22 06:41 95/71 L 04/30/22 06:41 20 92 04/30/22 06:30 100 H 21 91 04/30/22 06:08 85/50 L 04/30/22 06:08 112 H 33 H 93 04/30/22 06:00 91 H 20 95 04/30/22 06:00 68/57 L 04/30/22 05:31 103/74 04/30/22 05:31 91 H 20 95 04/30/22 05:30 88 18 95 04/30/22 05:00 88 16 94 04/30/22 05:00 91/73 L 04/30/22 04:30 90 17 94 04/30/22 04:30 107/72 04/30/22 04:01 90 17 95 04/30/22 04:01 104/52 L 04/30/22 04:00 90 17 96 04/30/22 03:30 90 16 95 04/30/22 03:30 110/76 04/30/22 03:00 94 H 19 98 04/30/22 03:00 106/77 04/30/22 02:30 92 H 22 96 04/30/22 02:30 105/86 04/30/22 02:00 90 28 H 96 04/30/22 02:00 107/90 04/30/22 01:30 110 H 22 96 04/30/22 01:15 94/66 L 04/30/22 01:15 95 H 20 96 04/30/22 01:01 95/78 L 04/30/22 01:01 92 H 21 96 04/30/22 01:00 91 H 22 96 04/30/22 00:45 111/62 04/30/22 00:45 93 H 24 93 04/30/22 06:00 90 30 H 94 04/30/22 01:05 92 04/30/22 00:30 95 H 24 96 04/30/22 00:30 96/80 L 04/30/22 00:15 102/87 04/30/22 00:15 92 H 27 H 90 04/30/22 00:00 91 04/29/22 23:47 97 H 27 H 86 L 04/29/22 23:47 112/76 04/29/22 23:30 94 H 21 91 04/29/22 23:30 105/65 04/29/22 23:15 100/63 04/29/22 23:15 93 H 21 91 04/29/22 23:01 93 H 21 92 04/29/22 23:01 106/55 L 04/29/22 23:00 92 H 21 92 04/29/22 22:45 97/69 L 04/29/22 22:45 99 H 26 H 87 L 04/29/22 22:30 94 H 19 92 04/29/22 22:30 103/69 04/29/22 22:15 100/76 04/29/22 22:15 93 H 23 92 04/29/22 22:00 95 H 22 93 04/29/22 22:00 133/92 04/29/22 21:55 113/66 04/29/22 21:55 92 H 21 92 04/29/22 21:50 93/66 L 04/29/22 21:50 92 H 20 94 04/29/22 21:45 93/60 L 04/29/22 21:45 92 H 20 94 04/29/22 21:40 101/76 04/29/22 21:40 96 H 22 93 04/29/22 21:35 94 H 20 94 04/29/22 21:35 96/69 L 04/29/22 21:30 89 20 93 04/29/22 21:30 118/57 L 04/29/22 21:25 103/70 04/29/22 21:25 93 H 19 93 04/29/22 21:20 106/88 04/29/22 21:20 93 H 20 94 04/29/22 21:15 99/80 L 04/29/22 21:15 93 H 21 94 04/29/22 21:10 99/58 L 04/29/22 21:10 94 H 20 94 04/29/22 21:05 111/95 04/29/22 21:05 95 H 20 95 04/29/22 21:00 95 H 18 94 04/29/22 21:00 112/72 04/29/22 20:55 94 H 18 94 04/29/22 20:55 105/90 04/29/22 20:50 107/76 04/29/22 20:50 36.6 C 94 H 19 94 04/30/22 00:42 Oxymask O2 Del Method O2 Flow Rate O2 Flow Rate FiO2 04/30/22 06:41 04/30/22 06:41 04/30/22 06:30 04/30/22 06:08 04/30/22 06:08 04/30/22 06:00 04/30/22 06:00 04/30/22 05:31 04/30/22 05:31 04/30/22 05:30 04/30/22 05:00 04/30/22 05:00 04/30/22 04:30 04/30/22 04:30 04/30/22 04:01 04/30/22 04:01 04/30/22 04:00 04/30/22 03:30 04/30/22 03:30 04/30/22 03:00 04/30/22 03:00 04/30/22 02:30 04/30/22 02:30 04/30/22 02:00 04/30/22 02:00 04/30/22 01:30 04/30/22 01:15 04/30/22 01:15 04/30/22 01:01 04/30/22 01:01 04/30/22 01:00 04/30/22 00:45 04/30/22 00:45 04/30/22 06:00 30 04/30/22 01:05 Oxymask 5 04/30/22 00:30 04/30/22 00:30 04/30/22 00:15 04/30/22 00:15 04/30/22 00:00 04/29/22 23:47 04/29/22 23:47 04/29/22 23:30 04/29/22 23:30 04/29/22 23:15 04/29/22 23:15 04/29/22 23:01 04/29/22 23:01 04/29/22 23:00 04/29/22 22:45 04/29/22 22:45 04/29/22 22:30 04/29/22 22:30 04/29/22 22:15 04/29/22 22:15 04/29/22 22:00 04/29/22 22:00 04/29/22 21:55 04/29/22 21:55 04/29/22 21:50 04/29/22 21:50 04/29/22 21:45 04/29/22 21:45 04/29/22 21:40 04/29/22 21:40 04/29/22 21:35 04/29/22 21:35 04/29/22 21:30 04/29/22 21:30 04/29/22 21:25 04/29/22 21:25 04/29/22 21:20 04/29/22 21:20 04/29/22 21:15 04/29/22 21:15 04/29/22 21:10 04/29/22 21:10 04/29/22 21:05 04/29/22 21:05 04/29/22 21:00 04/29/22 21:00 04/29/22 20:55 04/29/22 20:55 04/29/22 20:50 04/29/22 20:50 04/30/22 00:42 5 Lab & Micro Results (Past 24 Hours) No Data to Display Na 140 mmol/L (136-145) 04/30/22 K 3.3 mmol/L (3.5-5.1) L 04/30/22 Cl 93 mmol/L (98-107) L 04/30/22 CO2 23 mmol/L (21-32) 04/30/22 Anion Gap 24 (3-11) H 04/30/22 BUN 19 mg/dl (6-23) 04/30/22 Creatinine 4.51 mg/dl (0.6-1.4) H* 04/30/22 Estimated GFR ( Amer) 13.4 ml/min 04/30/22 Estimated GFR (Non-Af Amer) 11.5 ml/min 04/30/22 BUN/Creatinine Ratio 4.2 (10-20) L 04/30/22 Glu 184 mg/dl (70-99(Fasting)) H 04/30/22 Ca 7.6 mg/dl (8.5-10.1) L 04/30/22 Total Bilirubin 7.2 mg/dl (0.2-1.0) H 04/30/22 Direct Bilirubin 4.1 mg/dl (0-0.2) H 04/29/22 AST 530 U/L (13-39) H 04/30/22 ALT 94 U/L (7-52) H 04/30/22 Alkaline Phosphatase 119 U/L (34-104) H 04/30/22 TP 6.1 gm/dl (6.0-8.3) 04/30/22 Albumin 3.3 gm/dl (3.4-5.0) L 04/30/22 Globulin 2.8 gm/dl (2.5-4.0) 04/30/22 Albumin/Globulin Ratio 1.2 (0.9-2) 04/30/22 Mg 1.7 mg/dl (1.7-2.4) 04/30/22 05:23 Calcium Level 7.6 mg/dl (8.5-10.1) L 04/30/22 05:23 Prothromb Time International Ratio 2.6 (0.9-1.1) H 04/29/22 20 :10 Arterial Blood pH 7.33 (7.35-7.45) L 04/29/22 08:25 Arterial Blood Partial Pressure CO2 25 mmHg (35-46) L 04/29/22 08:25 Arterial Blood Partial Pressure O2 105 mmHg (80-95) H 04/29/22 08:25 Arterial Blood HCO3 13 mmol/L (19-24) L 04/29/22 08:25 Arterial Blood Base Excess -11.3 mEq/L (-9-1.8) L 04/29/22 08:2 5 Arterial Blood Oxygen Saturation 98.5 % (90-95) H 04/29/22 08:2 5 Blood Gas Oxygen Given 3L 04/29/22 08:25 Sheng Test Pos (Pos) 04/29/22 08:25 Diagnostic Findings (Past 24 Hours) Abdomen/Pelvis CT 04/29/22 08:26 CT OF THE ABDOMEN AND PELVIS WITHOUT CONTRAST CLINICAL HISTORY: ?hemoperitoneum, abdominal distension. COMPARISON STUDY: CT of the abdomen and pelvis April 28, 2022 and May 26, 2021. TECHNIQUE: Axial images of the abdomen and pelvis were obtained without IV contrast. Images were reviewed in the axial, sagittal, and coronal planes. Automated exposure control was utilized for the study. A dose lowering technique was utilized adhering to the principles of ALARA. FINDINGS: Small bilateral pleural effusions have slightly increased since CT of April 28, 2022. Marked elevation of the right hemidiaphragm is again noted. No acute fractures are identified within visualized portions of the ribs. There is mild cardiomegaly. Severe hepatic steatosis is again noted. Right hepatic dome cyst is present. 2 right hepatic lobe lesions measure up to 2.5 cm. These are indeterminate. The appearance of the liver is unchanged. The liver appears somewhat diminutive. The findings favor cirrhosis. Size of the spleen is normal. Moderate abdominal and pelvic ascites is noted. The fluid measures near water attenuation. The amount of fluid is unchanged since prior CT. No definite hemorrhage is present. A Wang balloon within the bladder is noted. Adrenal glands, kidneys and pancreas are unremarkable. Dilatation of the proximal celiac axis, measuring 1.8 cm is unchanged. Evaluation of the abdomen and pelvis is suboptimal on this unenhanced exam. Large and small bowel wall thickening is similar to prior exam. There is no evidence for a bowel obstruction. Mesenteric stranding is unchanged. There is anasarca. No fluid collection is identified to suggest an abscess. No pneumatosis, free air or portal venous gas is present. Left inguinal hernia contains a portion of the sigmoid colon. This does not result in a bowel obstruction. IMPRESSION: 1. Moderate fluid within the abdomen and pelvis, unchanged since CT of April 28, 2022. This favors ascites. Apparent increased attenuation within portions of this fluid is likely artifactual. Hemoperitoneum is considered less likely but would be difficult to completely exclude. 2. Severe hepatic steatosis with possible cirrhosis. The findings may indicate a cute liver injury. Two indeterminate right hepatic lobe lesions which can be assessed on follow-up exams. 3. Slight increase in small bilateral pleural effusions. 4. No change in small and large bowel wall thickening. This could be due to the patient's diffuse edematous state or represent a nonspecific enterocolitis. 5. Anasarca. 6. No bowel obstruction. ACT 112: Negative or not required by law. Electronically signed by: Eugene Hillman M.D. 04/29/2022 9:52 AM I & O Totals 24 Hours 04/29/22 04/30/22 05/01/22 06:59 06:59 06:59 Intake Total 3159.117 / 3159.117 3653.066 / 3663.766 11.18 Output Total 150 / 150 10 Balance 3009.117 / 3009.117 3643.066 / 3653.766 11.18 Cumulative 04/28/22 16:30 thru 04/30/22 07:00 Intake Total 6822.883 Output Total 160 Balance 6662.883 RT Ventilator Mngmt (Last Documented) Ventilator Ordered Settings Respiratory Rate 20 04/30/22 06:41 Fraction of Inspired Oxygen 30 04/30/22 06:00 Ventilator - PT Measurements Respiratory Rate 20 Coding Level of Care Code 13399 CRITICAL CARE 1ST 30-74M Diagnoses Acidosis E87.20 Acute metabolic encephalopathy G93.41 Coagulopathy D68.9 (HFpEF) heart failure with preserved ejection fraction I50.30 Acute kidney injury N17.9 Alcoholism F10.20
--- NOTE | 2022-04-30 08:22 | Ultrasound Report ---
RENAL ULTRASOUND HISTORY: Acute renal failure eval for other pathology COMPARISON: Abdomen and pelvis CT 04/29/2022. FINDINGS: Right kidney: 10.1 cm. No hydronephrosis. Normal corticomedullary differentiation and cortical thickn ess. Left kidney: 10.9 cm. No hydronephrosis. Normal corticomedullary differentiation and cortical thickne ss. Bladder: Decompressed and not visualized. Miscellaneous: A small amount of ascites and a cirrhotic liver again noted. IMPRESSION: Normal kidneys. No hydronephrosis. ACT 112: Negative or not required by law. Electronically signed by: Nathaniel Schultz M.D. 04/30/2022 8:21 AM
--- NOTE | 2022-04-30 08:23 | XRay Report ---
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 FINDINGS: No pneumothorax. The heart remains mildly enlarged. Progressive interstitial/vascular thick ening consistent with mild congestive change. There is severe elevation the right hemidiaphragm. Biba silar linear densities favor subsegmental atelectasis. IMPRESSION: 1. Elevation of the right hemidiaphragm again noted. 2. Cardiomegaly with mild central pulmonary vascular congestion without overt edema. ACT 112: Negative or not required by law. Electronically signed by: Nathaniel Schultz M.D. 04/30/2022 8:22 AM
[2022-04-30] MEDS ORDERED: MoRPHine SULF/NSS 250 MG/250 ML BTL IV SCH (09:00)
[2022-04-30] MEDS: MIDODRINE HCL 10 MG TAB PO SCH (09:04)
--- NOTE | 2022-04-30 09:14 | Nephrology Progress Note ---
Date of Service April 30, 2022 Assessment & Plan (1) BRITTA (acute kidney injury): Plan: * Oliguric BRITTA - likely ATN related to hypotension * Chart review performed this am. Laboratory studies, CXR films, renal US report reviewed. Medical management discussed w/ ICU team this am. Despite pressor therapy BP has remained 60-90 mmHg. Patient became progressively more encephalopathic overnight with increased work of breathing and required initiation of BiPAP. CXR this am shows severely elevated R hemidiaphragm. Mild vascular congestion but no overt CHF. Abdominal CT yesterday and Renal US this am were negative for hydronephrosis. ICU team discussed POC/prognosis with the daughter who is POA. She stated the patient would not want aggressive interventions including intubation, mechanical ventilation or dialysis. Family has decided to transition to palliative care/comfort measures. Will sign off. Please call if further Nephrology assistance is needed (2) Alcohol poisoning: Plan: * Ethanol is osmotically active. Osmolar gap closes when Ethanol is accounted for in the calculations [ie., 2(Na)+BUN/2.8+Gluc/18+Ethanol/4.6]. No evidence by history or osmolar gap calculation of toxic alcohol ingestion. No acute indication for Fomepazole therapy. Management of alcohol intoxication is primarily supportive * Methanol & Ethylene Glycol levels have been ordered but osmolar gap corrects when Ethanol level is taken into account (3) High serum osmolar gap: Plan: * High anion gap metabolic acidosis related to hypotension, poor perfusion and elevated lactate Admission and Anticipated Discharge Date Admission Date: April 28, 2022 Results & Data Vital Signs (Past 12 Hours) Vital Signs Pulse Resp BP Pulse Ox Pulse Ox O2 Del Method O2 Del Method 04/30/22 06:41 95/71 L 04/30/22 06:41 20 92 04/30/22 06:30 100 H 21 91 04/30/22 06:08 85/50 L 04/30/22 06:08 112 H 33 H 93 04/30/22 06:00 91 H 20 95 04/30/22 06:00 68/57 L 04/30/22 05:31 103/74 04/30/22 05:31 91 H 20 95 04/30/22 05:30 88 18 95 04/30/22 05:00 88 16 94 04/30/22 05:00 91/73 L 04/30/22 04:30 90 17 94 03/19/23 04:30 107/72 04/30/22 04:01 90 17 95 04/30/22 04:01 104/52 L 04/30/22 04:00 90 17 96 04/30/22 03:30 90 16 95 04/30/22 03:30 110/76 04/30/22 03:00 94 H 19 98 04/30/22 03:00 106/77 04/30/22 02:30 92 H 22 96 04/30/22 02:30 105/86 04/30/22 02:00 90 28 H 96 04/30/22 02:00 107/90 04/30/22 01:30 110 H 22 96 04/30/22 01:15 94/66 L 04/30/22 01:15 95 H 20 96 04/30/22 01:01 95/78 L 04/30/22 01:01 92 H 21 96 04/30/22 01:00 91 H 22 96 04/30/22 00:45 111/62 04/30/22 00:45 93 H 24 93 04/30/22 06:00 90 30 H 94 04/30/22 01:05 92 Oxymask 04/30/22 00:30 95 H 24 96 04/30/22 00:30 96/80 L 04/30/22 00:15 102/87 04/30/22 00:15 92 H 27 H 90 04/30/22 00:00 91 04/29/22 23:47 97 H 27 H 86 L 04/29/22 23:47 112/76 04/29/22 23:30 94 H 21 91 04/29/22 23:30 105/65 04/29/22 23:15 100/63 04/29/22 23:15 93 H 21 91 04/29/22 23:01 93 H 21 92 04/29/22 23:01 106/55 L 04/29/22 23:00 92 H 21 92 04/29/22 22:45 97/69 L 04/29/22 22:45 99 H 26 H 87 L 04/29/22 22:30 94 H 19 92 04/29/22 22:30 103/69 04/29/22 22:15 100/76 04/29/22 22:15 93 H 23 92 04/29/22 22:00 95 H 22 93 04/29/22 22:00 133/92 04/29/22 21:55 113/66 04/29/22 21:55 92 H 21 92 04/29/22 21:50 93/66 L 04/29/22 21:50 92 H 20 94 04/29/22 21:45 93/60 L 04/29/22 21:45 92 H 20 94 04/29/22 21:40 101/76 04/29/22 21:40 96 H 22 93 04/29/22 21:35 94 H 20 94 04/29/22 21:35 96/69 L 04/29/22 21:30 89 20 93 04/29/22 21:30 118/57 L 04/29/22 21:25 103/70 04/29/22 21:25 93 H 19 93 04/29/22 21:20 106/88 04/29/22 21:20 93 H 20 94 04/29/22 21:15 99/80 L 04/29/22 21:15 93 H 21 94 04/30/22 00:42 Oxymask O2 Flow Rate O2 Flow Rate FiO2 04/30/22 06:41 04/30/22 06:41 04/30/22 06:30 04/30/22 06:08 04/30/22 06:08 04/30/22 06:00 04/30/22 06:00 04/30/22 05:31 04/30/22 05:31 04/30/22 05:30 04/30/22 05:00 04/30/22 05:00 04/30/22 04:30 04/30/22 04:30 04/30/22 04:01 04/30/22 04:01 04/30/22 04:00 04/30/22 03:30 04/30/22 03:30 04/30/22 03:00 04/30/22 03:00 04/30/22 02:30 04/30/22 02:30 04/30/22 02:00 04/30/22 02:00 04/30/22 01:30 04/30/22 01:15 04/30/22 01:15 04/30/22 01:01 04/30/22 01:01 04/30/22 01:00 04/30/22 00:45 04/30/22 00:45 04/30/22 06:00 30 04/30/22 01:05 5 04/30/22 00:30 04/30/22 00:30 04/30/22 00:15 04/30/22 00:15 04/30/22 00:00 04/29/22 23:47 04/29/22 23:47 04/29/22 23:30 04/29/22 23:30 04/29/22 23:15 04/29/22 23:15 04/29/22 23:01 04/29/22 23:01 04/29/22 23:00 04/29/22 22:45 04/29/22 22:45 04/29/22 22:30 04/29/22 22:30 04/29/22 22:15 04/29/22 22:15 04/29/22 22:00 04/29/22 22:00 04/29/22 21:55 04/29/22 21:55 04/29/22 21:50 04/29/22 21:50 04/29/22 21:45 04/29/22 21:45 04/29/22 21:40 04/29/22 21:40 04/29/22 21:35 04/29/22 21:35 04/29/22 21:30 04/29/22 21:30 04/29/22 21:25 04/29/22 21:25 04/29/22 21:20 04/29/22 21:20 04/29/22 21:15 04/29/22 21:15 04/30/22 00:42 5 Laboratory Results Laboratory Tests 04/28/22 04/28/22 04/29/22 17:02 21:37 08:25 Sodium Potassium Chloride Carbon Dioxide BUN Creatinine Glucose Calcium Total Bilirubin AST ALT Alkaline Phosphatase Albumin Urine pH Ur Specific [place] Urine Protein Urine Blood Urine WBC (Auto) Urine RBC (Auto) U Hyaline Cast (Auto) U Epithel Cells (Auto) Urine Bacteria (Auto) Ethylene Glycol Pending Volat Analys Perform On Ethyl Alcohol mg/dL 125.1 H Methyl Alcohol Level SARS-CoV-2, RNA, NAAT NEGATIVE 04/29/22 04/29/22 04/29/22 08:25 20:07 21:56 Sodium Potassium Chloride Carbon Dioxide BUN Creatinine 4.49 H D Glucose Calcium Total Bilirubin 7.6 H AST 605 H ALT 109 H Alkaline Phosphatase 145 H Albumin 2.9 L Urine pH 5.5 Ur Specific [place] 1.007 Urine Protein 1+ H Urine Blood 3+ H Urine WBC (Auto) 10-30 H Urine RBC (Auto) 5-10 H U Hyaline Cast (Auto) 1-5 U Epithel Cells (Auto) >30 H Urine Bacteria (Auto) Negative Ethylene Glycol Volat Analys Perform On Pending Ethyl Alcohol mg/dL Methyl Alcohol Level Pending SARS-CoV-2, RNA, NAAT 04/30/22 05:23 Sodium 140 Potassium 3.3 L Chloride 93 L Carbon Dioxide 23 BUN 19 Creatinine 4.51 H* Glucose 184 H Calcium 7.6 L Total Bilirubin 7.2 H AST 530 H ALT 94 H Alkaline Phosphatase 119 H Albumin 3.3 L Urine pH Ur Specific [place] Urine Protein Urine Blood Urine WBC (Auto) Urine RBC (Auto) U Hyaline Cast (Auto) U Epithel Cells (Auto) Urine Bacteria (Auto) Ethylene Glycol Volat Analys Perform On Ethyl Alcohol mg/dL Methyl Alcohol Level SARS-CoV-2, RNA, NAAT Diagnostic Findings 04/30/22 CXR: 1. Elevation of the right hemidiaphragm again noted. 2. Cardiomegaly with mild central pulmonary vascular congestion without overt edema. 04/30/22 Renal US: Right kidney: 10.1 cm. No hydronephrosis. Normal corticomedullary differentiation and cortical thickness. Left kidney: 10.9 cm. No hydronephrosis. Normal corticomedullary differentiation and cortical thickness. Bladder: Decompressed and not visualized. Miscellaneous: A small amount of ascites and a cirrhotic liver again noted. PG Care Time/CCT Total # of Minutes Spent Total Time Spent with Patient: Total time spent is greater than 50% in coordination of care (as documented) at patient's floor/unit and/or counseling patient: Coding Level of Care Code 31508 SUB INP/OBS CARE 235MIN Diagnoses BRITTA (acute kidney injury) N17.9 Alcohol poisoning T51.91XA High serum osmolar gap R74.8
[2022-04-30] MEDS: ERYTHROMYCIN OP OINT 1 GM PKT OPL SCH (10:50)
[2022-04-30] MEDS: MoRPHine BOLUS from BAG IV PRN ×4 (11:15→15:29)
--- NOTE | 2022-04-30 12:02 | Hospitalist Progress Note ---
Date of Service April 30, 2022 Assessment & Plan (1) Acute alcoholic hepatitis: Plan: Rising LFTs, coagulopathy, etc in the setting of heavy etoh consumption are c/w acute alcoholic hepatitis. MELD score is very high (>35), Madrey's Discriminant function score is very high, and patient has severe acidosis with BRITTA. Defer use of steroids to ICU attending. He is at high risk of further decompensation, hepatic encephalopathy, etoh withdrawal, etc. Prognosis is guarded. Cont supportive care, serial labs, trial of IV vitamin K, etc. Consider acute hepatitis profile, GI consult, portal vein dopplers to r/o PVT, and empiric rocephin although there is no definitive history of esophageal varices. I cannot find an old EGD in the medical record. Further, there is no clinical evidence of SBP. (2) BRITTA (acute kidney injury): Plan: Severe, with considerable oliguria. Appreciate nephrology consultation with Dr Espinal. BRITTA likely prerenal in etiology as he looks markedly intra-vascularly volume depleted (but does have excess ascites, etc). CT a/p without signs of obstructive uropathy. Urine Na is high which argues against HRS. Cont to provide gentle fluids; bicarbonate infusion initiated by Dr Conde, paver layer. In addition, albumin infusions with midodrine +/- pressors will be initiated to support his blood pressure and thereby improve renal perfusion. Although there was initially some concern for volatile organic substance ingestion (rubbing alcohol, etc) at this time it is unlikely. Fomepizole to be deferred for now. Cont serial BMP checks. Wang placed. (3) Hypotension: Plan: intravascular volume contraction at least 1 of the culprits decreased effective circulating volume in setting of acute liver injury/hepatitis likely also to blame; hence, IV albumin with midodrine begun by ICU attending pressors to be used to keep MAP>65 cortisol noted to be robust no evidence of cardiogenic shock septic shock unlikely IV fluids, IV albumin, midodrine, pressors to be utilized also considering octreotide per ICU attending (4) Acidosis: Plan: AGMA including lactic acidosis, acidosis from #2. Alcohol also playing a role. Lactic acid levels may be unreliable in the setting of his acute liver failure as the liver metabolizes lactate. Bicarb infusion initiated in ICU. Serial BMPs with blood gases. Initially it was felt that his osmolality gap was elevated but later felt to be corrected. To be complete methanol and ethylene glycol levels have been dispatched but likely to be normal. Again fomepizole to be deferred. Cont supportive care with serial labs. Appreciate nephrology & critical care consults. (5) High serum osmolar gap: Plan: see above discussion (6) Coagulopathy: Plan: 2nd to #1 worsening rapidly prognosis guarded trial of vitamin K supplementation this am - 5mg IV x 1 however, INR worsened further despite vitamin K arguing that the primary issue is acute hepatitis DIC panel dispatched as platelets are mildly low d-dimer elevated; fibrinogen is low; FDP is high; PTT is high suspect that DIC is not present - above labs more c/w acute liver injury/h epatitis, acute phase reactants (d-dimer), etc. continue serial coags of note -repeat CT a/p obtained to ensure no hemoperitoneum; this repeat study is more suggestive of ascites than blood (7) Abnormal LFTs: Plan: due to #1 above (8) Abnormal CT of the abdomen: Plan: initial concern for hemoperitoneum, possibly due to a liver laceration or other problem repeat CT a/p not suspicious for internal bleeding/hemoperitoneum/liver lac or other issue related to trauma (he fell at home) or from his coagulopathy (9) Acute metabolic encephalopathy: Plan: 2nd to etoh ingestion, severe acidosis, acute liver injury/hepatitis, BRITTA, etc. cannot rule out UTI (u/a somewhat suggestive) cannot rule out SBP but unlikely CT head neg for ICH or acute findings (10) Alcoholism: Plan: high risk of withdrawal institute appropriate meds as needed thiamine, folate supplementation (11) Dehydration: Plan: 2nd to poor oral intake at home provide IV fluids as above (12) (HFpEF) heart failure with preserved ejection fraction: Plan: ascites, etc is due to his liver and kidney issues rather than HFpEF (13) Anasarca: (14) Conjunctivitis: Plan: left eye erythromycin eye ointment BID (15) Hypoglycemia: Plan: likely due to inadequate hepatic gluconeogenesis in the setting of acute hepatitis also he has poor muscle reserve from chronic malnutrition and thus less stores of glycogen stress of illness to blame as well added dextrose to IV fluids serial BSGs Plan updated pt's daughter, Judy, extensively today after I saw patient, placed orders for repeat CT, placed numerous blood orders, gave fluid bolus, etc I then discussed Mr Amin's care with d/w Dr Conde from ICU team patient then accepted to ICU and transferred shortly thereafter total critical care time due to management of multi-organ failure in this critically ill gentleman -- 70 minutes Admission and Anticipated Discharge Date Admission Date: April 28, 2022 Physical Exam Physical Exam: gen - very ill-appearing, altered, disheveled, dehydrated eyes - PERRL; left eye with copious matting, conjunctival injection, and purulent discharge mouth - severely dry MM; ?thrush plaques on buccal mucosa; breath smells of alcohol neck - no JVD heart - RRR, s1 s2 lungs - CTA b/l abd - markedly distended, nontender, liver edge palpable, BS+ but decreased, no peritoneal signs skin - negative richmond-murillo's sign; abrasion/skin tear right power; scattered abrasions other locations b/l legs ext - no edema, pulses 1+ b/l, cool to touch neuro - strength 5/5 x 4 exts; no facial droop Results & Data Results & Data Vital Signs (Past 12 Hours) Vital Signs Pulse Resp BP Pulse Ox Pulse Ox O2 Del Method O2 Del Method 04/30/22 11:05 100 H 22 94 04/30/22 07:35 90 20 95 04/30/22 06:41 95/71 L 04/30/22 06:41 20 92 04/30/22 06:30 100 H 21 91 04/30/22 06:08 85/50 L 04/30/22 06:08 112 H 33 H 93 04/30/22 06:00 91 H 20 95 04/30/22 06:00 68/57 L 04/30/22 05:31 103/74 04/30/22 05:31 91 H 20 95 04/30/22 05:30 88 18 95 04/30/22 05:00 88 16 94 04/30/22 05:00 91/73 L 04/30/22 04:30 90 17 94 04/30/22 04:30 107/72 04/30/22 04:01 90 17 95 04/30/22 04:01 104/52 L 04/30/22 04:00 90 17 96 04/30/22 03:30 90 16 95 04/30/22 03:30 110/76 04/30/22 03:00 94 H 19 98 04/30/22 03:00 106/77 04/30/22 02:30 92 H 22 96 04/30/22 02:30 105/86 04/30/22 02:00 90 28 H 96 04/30/22 02:00 107/90 04/30/22 01:30 110 H 22 96 04/30/22 01:15 94/66 L 04/30/22 01:15 95 H 20 96 04/30/22 01:01 95/78 L 04/30/22 01:01 92 H 21 96 04/30/22 01:00 91 H 22 96 04/30/22 00:45 111/62 04/30/22 00:45 93 H 24 93 04/30/22 06:00 90 30 H 94 04/30/22 01:05 92 Oxymask 04/30/22 00:30 95 H 24 96 04/30/22 00:30 96/80 L 04/30/22 00:15 102/87 04/30/22 00:15 92 H 27 H 90 04/30/22 00:42 Oxymask O2 Flow Rate O2 Flow Rate FiO2 04/30/22 11:05 40 04/30/22 07:35 40 04/30/22 06:41 04/30/22 06:41 04/30/22 06:30 04/30/22 06:08 04/30/22 06:08 04/30/22 06:00 04/30/22 06:00 04/30/22 05:31 04/30/22 05:31 04/30/22 05:30 04/30/22 05:00 04/30/22 05:00 04/30/22 04:30 04/30/22 04:30 04/30/22 04:01 04/30/22 04:01 04/30/22 04:00 04/30/22 03:30 04/30/22 03:30 04/30/22 03:00 04/30/22 03:00 04/30/22 02:30 04/30/22 02:30 04/30/22 02:00 04/30/22 02:00 04/30/22 01:30 04/30/22 01:15 04/30/22 01:15 04/30/22 01:01 04/30/22 01:01 04/30/22 01:00 04/30/22 00:45 04/30/22 00:45 04/30/22 06:00 30 04/30/22 01:05 5 04/30/22 00:30 04/30/22 00:30 04/30/22 00:15 04/30/22 00:15 04/30/22 00:42 5 PG Care Time/CCT Total # of Minutes Spent Total Time Spent with Patient: Total time spent is greater than 50% in coordination of care (as documented) at patient's floor/unit and/or counseling patient: Coding Diagnoses Acute alcoholic hepatitis K70.10 BRITTA (acute kidney injury) N17.9 Hypotension I95.9 Acidosis E87.20 High serum osmolar gap R74.8 Coagulopathy D68.9 Abnormal LFTs R79.[address] of the abdomen R93.5 Acute metabolic encephalopathy G93.41 Alcoholism F10.20 Dehydration E86.0 (HFpEF) heart failure with preserved ejection fraction I50.30 Anasarca R60.1 Conjunctivitis H10.9 Hypoglycemia E16.2
[2022-04-30] MEDS ORDERED: SCOPOLAMINE 1 MG TDSY TD SCH (12:26)
[2022-04-30] MEDS: LORazepam 2 MG/1 ML VIAL IV PRN ×2 (13:19→16:05)
[2022-04-30] MEDS ORDERED: CHECK SCOPOLAMINE PATCH PLACEMENT SCH (16:00)
--- NOTE | 2022-04-30 17:29 | Death Pronouncement Note ---
Date of Service April 30, 2022 Pronouncement Note Admission Date April 28, 2022 Date and Time of Date of : 04/30/22 Time of : 16:30 Preliminary Cause of (1) Acute liver failure: (2) Acute alcoholic hepatitis: (3) BRITTA (acute kidney injury): (4) Acute respiratory failure with hypoxia: Additional Data Confirmation of : no pulse, no respirations, no heart sounds and pupils fixed and dilated Pronouncement Performed By: Attending Physician Family: at bedside Attending/PCP notified?: Yes Attending physician: Deniz Chacon Was code activated?: No Autopsy requested?: No architectural examiner notified?: No Organ bank notified?: No Coding Level of Care Code None Diagnoses Acute liver failure K72.00 Acute alcoholic hepatitis K70.10 BRITTA (acute kidney injury) N17.9 Acute respiratory failure with hypoxia J96.01
--- NOTE | 2022-04-30 17:29 | Discharge Summary ---
Date of Service Admission Date April 28, 2022 Date and Time of Date of : 04/30/22 Time of : 16:30 Admission HPI Per Admitting Provider The patient is a 77-year-old male with a past medical history including closed head injury, acute kidney injury, HFpEF, folate deficiency, alcohol use disorder, ambulatory dysfunction, hypertension, carotid artery disease, celiac artery aneurysm, dyslipidemia and alcoholism. The patient was referred to the emergency department via EMS by his caregiver due to worsening confusion, ongoing alcohol use, and decreased oral intake over the past week, complicated by a fall this morning where he did strike his head. The patient is a very poor historian and is quite lethargic, with HPI and ROS being very limited. Principal Diagnosis 1. acute liver failure 2. acute kidney failure / BRITTA 3. acute hypoxic respiratory failure 4. acute metabolic encephalopathy 5. coagulopathy 2nd to #1 6. alcoholism 7. metabolic acidosis - multifactorial 8. acute pulmonary edema Discharge Exam at time of - pupils fixed/dilated; no audible heart tones; no spontaneous respiratory effort; no response to pain or voice Discharge Data Allergies Allergy/AdvReac Type Severity Reaction Status Date / Time No Known Allergies Allergy Verified 04/28/22 19:22 Consultations 04/29/22 08:40 Consult Nuclear Test Technician Routine 04/29/22 09:57 Consult Nephrology Routine Ordered Studies 04/28/22 17:04 CT abd pelvis wo con Stat CT cervical spine wo con Stat CT chest diagnostic wo con Stat CT head/brain wo con Stat 04/29/22 08:26 CT abd pelvis wo con Stat 04/30/22 03:15 US Kidney Bladder [US renal/blad retro comp] Routine Hospital Course (1) Acute liver failure: (2) Acute alcoholic hepatitis: (3) Coagulopathy: (4) Acidosis: (5) BRITTA (acute kidney injury): (6) Acute metabolic encephalopathy: (7) Alcoholism: (8) Acute respiratory failure with hypoxia: (9) Hypoglycemia: (10) Hypotension: (11) Conjunctivitis: (12) High serum osmolar gap: (13) Abnormal LFTs: (14) (HFpEF) heart failure with preserved ejection fraction: (15) Celiac artery aneurysm: (16) Arteriosclerosis of carotid artery: (17) Acute pulmonary edema: Plan The patient presented with altered mental status, elevated alcohol level, metabolic acidosis, acute kidney failure with creatinine of nearly 4 (baseline Cr <1), elevated LFTs, elevated INR, etc. INR rapidly worsened from 1.8 to 2.6 in less than 12 hours, LFTs continued to rise, and creatinine worsened further to 4.5. There was evidence of severe lactic acidosis and at one point there was concern for volatile alcohol ingestion; ethylene glycol and methyl alcohol levels were dispatched. On hospital day #2 his condition worsened further necessitating transfer to the medical ICU. He was mildly hypotensive and albumin infusions along with pressors were instituted. He was hypoglycemic on hospital day #2 as well. Nephrology was consulted for his acute kidney failure. The patient was essentially anuric. Despite supportive care measures (fluids, pressors, etc) his multi-organ failure worsened. On the AM of hospital day #3 he developed pulmonary edema/volume overload leading to acute hypoxic respiratory failure in the setting of his acute liver failure/acute kidney failure. In order to survive he would have needed emergency hemodialysis. Discussions were held with the patient's two daughters, and at that time he was transitioned to a comfort care pathway. He passed comfortably and peacefully several hours later on 04.30.22 at 430pm. Of note - ethylene glycol level later returned undetectable several days after his . Methyl alcohol level was 6 (scantly high, but likely not clinically relevant, as levels usually are much higher in the setting of methyl alcohol poisoning). Total Time Total Time Spent Total Time Spent (In Minutes): 45 Discharge Plan Discharge Items Patient Disposition: Other Date/Time: 04/30/22 16:30 Coding Level of Care Code 85467 INP/OBS DISCH >30 MIN Diagnoses Acute liver failure K72.00 Acute alcoholic hepatitis K70.10 Coagulopathy D68.9 Acidosis E87.20 BRITTA (acute kidney injury) N17.9 Acute metabolic encephalopathy G93.41 Alcoholism F10.20 Acute respiratory failure with hypoxia J96.01 Hypoglycemia E16.2 Hypotension I95.9 Conjunctivitis H10.9 High serum osmolar gap R74.8 Abnormal LFTs R79.89 (HFpEF) heart failure with preserved ejection fraction I50.30 Celiac artery aneurysm I72.8 Arteriosclerosis of carotid artery I65.29 Acute pulmonary edema J81.0
[2022-05-02 15:17] LABS: Methyl Alcohol Comment WHOLE BLOOD; Methyl Alcohol Level 6 mg/dL (NONE DETECTED)
== END 2022-04-30 17:58 | disposition expired | DRG 441 ==
LOC: ED 16:45 → SUATTDRO 21:16 → EDINP 21:16 → 2E 04-29 01:06 → 1E 04-29 08:38 → 3W 04-30 08:54